=== PATIENT | female | born 1945 | race Caucasian/White ===

== ENCOUNTER 2019-10-01 08:01 | Day surgery (SDC) | payer MEDICARE, BC ==
[~2019-10-01 08:01] MED LIST: LACTATED RINGERS 1,000 ML IV SCH; LIDOCAINE 1% 20 ML VIAL (10MG/ML) FOR IV START INTRADERMA PRN
[2019-10-01 08:32] VITALS: RESP 16; TEMP 98
[2019-10-01] MEDS ORDERED: LIDOCAINE 1% 20 ML VIAL (10MG/ML) FOR IV START INTRADERMA ONE (08:35)
[2019-10-01] MEDS ORDERED: PROPOFOL 10 MG/ML 20 ML VIAL IV ONE (08:40)
--- NOTE | 2019-10-01 08:44 | P.GSHP ---
History of Present Illness H&P Date: 10/01/19 Chief Complaint: Rectal bleeding This is a 74-year-old female who's had issues with rectal bleeding. Patient rents today for colonoscopy. Past Medical History Past Medical History: COPD, Hyperlipidemia, Hypertension, Pneumonia Additional Past Medical History / Comment(s): constipation for about 3 months, traces of blood, hx. heart murmur, recent pneumonia-now resolved History of Any Multi-Drug Resistant Organisms: None Reported Past Surgical History: Hysterectomy, Orthopedic Surgery Additional Past Surgical History / Comment(s): pina foot surg. Past Anesthesia/Blood Transfusion Reactions: No Reported Reaction Smoking Status: Former smoker Past Alcohol Use History: None Reported Additional Past Alcohol Use History / Comment(s): quit smoking 2 months ago, smoked on & off since , did quit for long periods of time, <ppd Past Drug Use History: None Reported - Past Family History Brother(s) Family Medical History: Cancer Medications and Allergies Home Medications Medication Instructions Recorded Confirmed Type Ascorbic Acid [Vitamin C] 500 mg PO DAILY 09/27/19 10/01/19 History Aspirin 81 mg PO DAILY 09/27/19 10/01/19 History Atorvastatin [Lipitor] 10 mg PO HS 09/27/19 10/01/19 History amLODIPine BESYLATE/BENAZEPRIL 1 cap PO DAILY 09/27/19 10/01/19 History [Lotrel 5-10 MG] Allergies Allergy/AdvReac Type Severity Reaction Status Date / Time No Known Allergies Allergy Verified 10/01/19 08:20 Surgical - Exam Vital Signs Temp Pulse Resp BP Pulse Ox 98 F 102 H 16 116/56 99 10/01/19 08:31 10/01/19 08:31 10/01/19 08:31 10/01/19 08:31 10/01/19 08:31 - General well developed, well nourished, no distress - Eyes PERRL - ENT normal pinna - Neck no masses - Respiratory normal expansion - Cardiovascular Rhythm: regular - Abdomen Abdomen: soft, non tender Assessment and Plan Assessment: GI bleed. We'll perform colonoscopy.
--- NOTE | 2019-10-01 09:02 | P.OP ---
Date of Procedure: 10/01/19 Preoperative Diagnosis: GI bleed Postoperative Diagnosis: Sigmoid colon mass External hemorrhoids Procedure(s) Performed: Colonoscopy Anesthesia: MAC Surgeon: Ajit Young Pathology: other (Sigmoid colon) Condition: stable Disposition: PACU Description of Procedure: The patient's placed on the endoscopy table in the lateral position. She received IV sedation. Digital rectal exam was performed which revealed external hemorrhoids. The flexible colonoscope was then placed patient anus and passed t hroughout colon. Scope could not be advanced past the hepatic flexure. At this point scope was withdrawn. The transverse colon appeared normal. The descending colon appeared normal. In the sigmoid colon at approximately 25-30 cm nelda there was a large tumor which was partially obstructing the lumen of the colon. This was biopsied with the cold forcep and snare. The specimens of pathology. The distal colon was tattooed with the ink spot. The mass appeared to extend from the 25-30 cm nelda. At this point the rectal exam is normal. Scope was withdrawn for patient.
[2019-10-01 09:31] VITALS: PULSE 85
[2019-10-01 09:59] VITALS: BP 106/67
== END 2019-10-01 10:00 | disposition home or self-care (01) ==
LOC: ORWHC2ENDO 08:01
PROVIDERS: ATTEND Surgery
DX: K64.4 Residual hemorrhoidal skin tags (principal); K63.89 Other specified diseases of intestine; J44.9 Chronic obstructive pulmonary disease, unspecified; E78.5 Hyperlipidemia, unspecified; I10 Essential (primary) hypertension; Z87.01 Personal history of pneumonia (recurrent); Z87.19 Personal history of other diseases of the digestive system; Z90.710 Acquired absence of both cervix and uterus; Z98.890 Other specified postprocedural states; Z87.891 Personal history of nicotine dependence; Z79.82 Long term (current) use of aspirin; Z79.899 Other long term (current) drug therapy
CPT/HCPCS: 88305; 45380; 45385; J2704; 45381

== ENCOUNTER → 2019-10-01 | Outpatient (CLI) | payer MEDICARE, BC ==
[2019-10-01 16:30] LABS: HCT 29.3 % (34.0-46.0); HGB 9.6 gm/dL (11.4-16.0); MCH 30.5 pg (25.0-35.0); MCHC 32.8 g/dL (31.0-37.0); MCV 92.9 fL (80.0-100.0); Mean Platelet Volume 6.8; Platelet Count 403 k/uL (150-450); RBC 3.16 m/uL (3.80-5.40); RDW 13.9 % (11.5-15.5); WBC 7.5 k/uL (3.8-10.6)
[2019-10-01 16:39] LABS: Potassium 4.5 mmol/L (3.5-5.1)
== END | disposition home or self-care (01) ==
LOC: LABPAT 15:13
PROVIDERS: ATTEND Surgery
DX: Z01.812 Encounter for preprocedural laboratory examination (principal); C18.9 Malignant neoplasm of colon, unspecified
CPT/HCPCS: 36415; 80051; 85027; 86850; 86900; 86901; 93005

== ENCOUNTER → 2019-10-08 | Outpatient (CLI) | payer MEDICARE, BC ==
--- NOTE | 2019-10-08 14:41 | CT ---
EXAMINATION TYPE: CT abdomen pelvis w con DATE OF EXAM: 10/08/2019 COMPARISON: None HISTORY: 74 year-old female history of colon cancer, bowel blockage, preoperative assessment. TECHNIQUE: Contiguous axial scanning of the abdomen and pelvis following administration of 100 ml Iso magi 300 IV contrast. Delayed images through the kidneys and coronal/sagittal reconstructions perform ed. CT DLP: 777.1 mGycm Automated exposure control for dose reduction was used. FINDINGS: Heart normal size without pericardial effusion. Small hiatal hernia. Lung bases clear without pleural effusion. No focal liver lesion or biliary ductal dilatation. Portal venous system is patent. Gallbladder, adrenal glands, left kidney, spleen, and pancreas appear within normal limits. 6 mm nonobstructive right renal calculus. [id number] prostatic calcifications infrarenal abdominal aorta without aneurysm. No dilated small bowel, free fluid, or free air. There is scattered moderate stool. Sigmoid diverticulosis. Large heterogeneously enhancing mass measuring 6.8 cm wide by 6.2 cm craniocaudal by 10.3 cm AP situa michele along the rectosigmoid junction. Invasion of the right side of the cervix is difficult to exclude , refer to sagittal image 51. No mesenteric or retroperitoneal lymphadenopathy. Bladder distended. Uterus surgically absent. Mild to moderate pelvic free fluid probably reactive. Th ere is mild inflammatory fat stranding around the heterogeneous mass. No pelvic lymphadenopathy. Bones: Moderate degenerative changes of the hips. Degenerative disc disease T12-L1 and L5-S1. IMPRESSION: 1. LARGE, HETEROGENEOUSLY ENHANCING MASS MEASURING 10.3 CM AP BY 6.7 M WIDE BY 6.2 CM CRANIOCAUDAL CE NTERED AT THE RECTOSIGMOID JUNCTION. SUSPECT EARLY INVASION OF THE RIGHT SIDE OF THE CERVIX (SAGITTAL IMAGE 51). 2. MODERATE STOOL BURDEN. BACKGROUND SIGMOID DIVERTICULOSIS. 3. NO METASTATIC DISEASE IS OTHERWISE EVIDENT. 4. 6 MM NONOBSTRUCTIVE RIGHT RENAL CALCULUS AND SMALL HIATAL HERNIA.
== END | disposition home or self-care (01) ==
LOC: RADCTMAIN 11:07
PROVIDERS: ATTEND Surgery
DX: K57.30 Diverticulosis of large intestine without perforation or abscess without bleeding (principal); K44.9 Diaphragmatic hernia without obstruction or gangrene; N20.0 Calculus of kidney; K63.89 Other specified diseases of intestine; C18.9 Malignant neoplasm of colon, unspecified
CPT/HCPCS: 36415; 74177; 82565; 84520

== ENCOUNTER 2019-10-09 10:41 | Inpatient (IN) | payer MEDICARE, BC ==
[~2019-10-09 10:41] MED LIST changes: +DEXAMETHASONE SOD PHOSPHATE 10 MG/ML 1 ML VIAL IV ONE; +HEPARIN SODIUM,PORCINE 5,000 UNIT/ML 1 ML VIAL SQ ONE; +HYDROmorphone 0.5 MG/0.5 ML SYRINGE IVP PRN; -LACTATED RINGERS 1,000 ML IV SCH; +MIDAZOLAM 2 MG/2 ML VIAL IV PRN; +ONDANSETRON 4 MG/2 ML VIAL IVP ONE; +SCOPOLAMINE 1.5MG/72HR PATCH TRANSDERM ONE; +metroNIDAZOLE-NS PMX 500 MG in SALINE 1 100ML.BAG IVPB ONE
[2019-10-09] MEDS: LACTATED RINGERS 1,000 ML IV SCH ×2 (12:24→23:13)
--- NOTE | 2019-10-09 13:04 | P.GSHP ---
History of Present Illness H&P Date: 10/09/19 Chief Complaint: Sigmoid colon mass This is a 74-year-old female who underwent recent colonoscopy. Patient's found have a sigmoid colon mass with a villous tumor with high-grade dysplasia. Patient presents today for low anterior section. Patient is aware the risk of possible colostomy. Past Medical History Past Medical History: COPD, Hyperlipidemia, Hypertension, Pneumonia Additional Past Medical History / Comment(s): constipation for about 3 months, traces of blood, hx. heart murmur, recent pneumonia-now resolved,"BLOCKAGE IN COLON AREA" History of Any Multi-Drug Resistant Organisms: None Reported Past Surgical History: Hysterectomy, Orthopedic Surgery Additional Past Surgical History / Comment(s): pina foot surg. Past Anesthesia/Blood Transfusion Reactions: No Reported Reaction Smoking Status: Former smoker - Past Family History Brother(s) Family Medical History: Cancer Medications and Allergies Home Medications Medication Instructions Recorded Confirmed Type Ascorbic Acid [Vitamin C] 500 mg PO DAILY 09/27/19 10/09/19 History Aspirin 81 mg PO DAILY 09/27/19 10/09/19 History Atorvastatin [Lipitor] 10 mg PO HS 09/27/19 10/09/19 History amLODIPine BESYLATE/BENAZEPRIL 1 cap PO DAILY 09/27/19 10/09/19 History [Lotrel 5-10 MG] Allergies Allergy/AdvReac Type Severity Reaction Status Date / Time No Known Allergies Allergy Verified 10/09/19 11:52 Surgical - Exam Vital Signs Temp Pulse Resp BP Pulse Ox 98.0 F 91 18 107/55 97 10/09/19 11:54 10/09/19 11:54 10/09/19 11:54 10/09/19 11:54 10/09/19 11:54 - General well developed, well nourished, no distress - Eyes PERRL - ENT normal pinna - Neck no masses - Respiratory normal expansion - Cardiovascular Rhythm: regular - Abdomen Abdomen: soft, non tender Results - Labs 10/09/19 12:22 Diabetes panel 10/09/19 Range/Units 12:22 Potassium 3.8 (3.5-5.1) mmol/L Pituitary panel 10/09/19 Range/Units 12:22 Potassium 3.8 (3.5-5.1) mmol/L Adrenal panel 10/09/19 Range/Units 12:22 Potassium 3.8 (3.5-5.1) mmol/L Assessment and Plan Assessment: Sigmoid colon mass. Patient undergo low anterior resection.
[2019-10-09] MEDS ORDERED: MIDAZOLAM 2 MG/2 ML VIAL IVP ONE (13:14)
[2019-10-09] MEDS ORDERED: ALVIMOPAN 12 MG CAPSULE PO ONE (13:30)
[2019-10-09] MEDS ORDERED: NALOXONE 0.4 MG/ML 1 ML VIAL IV PRN (13:35)
[2019-10-09] MEDS ORDERED: MIDAZOLAM 2 MG/2 ML VIAL ONE (13:46)
[2019-10-09] MEDS ORDERED: LIDOCAINE 1% INJ 10MG/ML (20 ML MDV) ONE (13:46)
[2019-10-09] MEDS ORDERED: fentaNYL (PF) 50 MCG/ML 2 ML AMP ONE (13:46)
[2019-10-09] MEDS ORDERED: NEOSTIGMINE 1 MG/ML 10 ML VIAL ONE (13:46)
[2019-10-09] MEDS ORDERED: GLYCOPYRROLATE 0.2 MG/ML 2 ML VIAL ONE (13:46)
[2019-10-09] MEDS ORDERED: PROPOFOL 10 MG/ML 20 ML VIAL IV ONE (13:46)
[2019-10-09] MEDS ORDERED: ROCURONIUM BROMIDE 10 MG/ML 10 ML VIAL IV ONE (13:46)
[2019-10-09] MEDS ORDERED: LACTATED RINGERS 1,000 ML IV ONE (14:15)
[2019-10-09] MEDS ORDERED: METOCLOPRAMIDE 5 MG/ML 2 ML VIAL IVP PRN (15:36)
[2019-10-09] MEDS ORDERED: HYDROmorphone 1 MG/ML 1 ML SYRINGE IVP PRN (15:36)
[2019-10-09] MEDS ORDERED: ONDANSETRON 4 MG/2 ML VIAL IVP PRN (15:36)
[2019-10-09] MEDS ORDERED: BENZOCAINE/MENTHOL LOZENG 1 EACH LOZENGE MUCOUS MEM PRN (15:36)
--- NOTE | 2019-10-09 15:47 | P.OP ---
Date of Procedure: 10/09/19 Preoperative Diagnosis: Sigmoid colon mass Postoperative Diagnosis: Sigmoid colon mass with extension to right pelvic sidewall Procedure(s) Performed: Low anterior resection Anesthesia: ADELITAA Surgeon: Ajit Young Estimated Blood Loss (ml): 30 Pathology: other (Sigmoid colon) Condition: stable Disposition: PACU Description of Procedure: DESCRIPTION OF PROCEDURE: The patient was placed on the operating table in the supine position. Patient received a general anesthesia. Patient was then placed in the dorsal lithotomy position. The patient's abdomen was prepped and draped in the usual sterile fashion. Through a low midline incision, the abdomen was entered. The Kris retractor was placed in the wound. The stomach appeared normal. The small bowel appeared normal. The liver appeared normal. The right colon and transverse colon appeared normal. The descending colon appeared normal. The sigmoid colon was adherent to the right SIDEWALL. There was a large mass extending from the distal sigmoid colon. At this point the left colon was transected after the white line of Toldt was divided. The anvil for the 25 mm EEA stapler was placed in the colon prior to dividing the colon with a GI stapler. The anvil was brought through the staple line. Using the VEE stapler the left colon was transected and using the Enseal device the mesentery of the sigmoid colon was divided. The mesentery the rectum and then divided. And then the rectum was transected with the contour stapler. The mass and extended onto the right pelvic sidewall using blunt finger dissection the mass was dissected off the pelvic sidewall. Massive very friable. It appeared to be an obvious colon cancer. The election assistant placed the EEA stapler patient's anus. The stapler was position in the rectum. The spike was then driven through the rectal staple line. The anvil was connected to the stapler. And then maine then closed and fired. 2 intact tissue rings were withdrawn for stapler. Next using hydro-superintendent ammunition storage the bowel just proximal to the anastomosis occluded. The sigmoidoscope was then used to insufflate air into the rectum. As no evidence of any extravasation of air. The abdomen was irrigated resolving seen. The liver appeared normal. The fascia was closed with clean instruments. 2 sutures used to close the fascia. O-PDS was used to close the fascia. Scope was maine. Patient top she will she was sent to recovery room in stable condition
[2019-10-09] MEDS: HEPARIN SODIUM,PORCINE 5,000 UNIT/ML 1 ML VIAL SQ SCH ×3 (15:59→23:14)
[2019-10-09 16:51] LABS: Basophils % (A) 0 %; Eosinophils % (A) 0 %; HCT 28.2 % (34.0-46.0); HGB 9.2 gm/dL (11.4-16.0); Lymphocytes # (A) 0.6 k/uL (1.0-4.8); Lymphocytes % (A) 9 %; MCH 30.1 pg (25.0-35.0); MCHC 32.5 g/dL (31.0-37.0); MCV 92.4 fL (80.0-100.0); Mean Platelet Volume 6.8; Monocytes # (A) 0.1 k/uL (0-1.0); Monocytes % (A) 1 %; Neutrophils # (A) 6.7 k/uL (1.3-7.7); Neutrophils % (A) 90 %; Platelet Count 332 k/uL (150-450); RBC 3.05 m/uL (3.80-5.40); RDW 13.9 % (11.5-15.5); WBC 7.5 k/uL (3.8-10.6)
[2019-10-09 17:10] LABS: Calcium 8.5 mg/dL (8.4-10.2); Potassium 3.8 mmol/L (3.5-5.1)
[2019-10-09] MEDS: ALVIMOPAN 12 MG CAPSULE PO SCH (20:20)
[2019-10-09] MEDS: FAMOTIDINE 20 MG/2 ML VIAL IV SCH (20:20)
[2019-10-09] MEDS: D5-0.45% NACL WITH KCL 20MEQ/L 1,000 ML IV SCH (21:46)
--- NOTE | 2019-10-10 05:53 | P.PN ---
Progress Note - Text Progress Note Date: 10/10/19 74 yo female s/p low anterior resection, POD#1. No major complaints overnight. Adequate pain control (VAS=3/10) at a rate of 6cc/hr. No motor deficit, headache, nausea or vomiting. Epidural catheter insertion site clean and intact. Will continue epidural at same rate.
[2019-10-10] MEDS: ROPIVACAINE 250 MG, fentaNYL (PF) 625 MCG in SODIUM CHLORIDE 0.9% 188 ML EPIDURAL PRN (07:29)
--- NOTE | 2019-10-10 07:53 | P.CONS ---
History of Present Illness - Reason for Consult Consult date: 10/10/19 Requesting physician: Ajit Young - Chief Complaint rectal bleeding - History of Present Illness This is a consultation note on a 74-year-old white female essentially admitted for rectal bleeding. Transverse colonic mass was found on colonoscopy and she is essentially admitted for elective resection. She is now postop day #1. Some low blood pressure is noted. No sniffing chest pain or shortness of breath stated. Pain is fairly well controlled. Review of Systems Constitutional: Denies chills, Denies fever Eyes: denies blurred vision, denies pain Ears, nose, mouth and throat: Denies headache, Denies sore throat Cardiovascular: Denies chest pain, Denies shortness of breath Respiratory: Denies cough Gastrointestinal: Denies nausea, Denies vomiting Genitourinary: Denies dysuria, Denies hematuria Past Medical History Past Medical History: COPD, Hyperlipidemia, Hypertension, Pneumonia Additional Past Medical History / Comment(s): constipation for about 3 months, traces of blood, hx. heart murmur, recent pneumonia-now resolved,"BLOCKAGE IN COLON AREA" History of Any Multi-Drug Resistant Organisms: None Reported Past Surgical History: Hysterectomy, Orthopedic Surgery Additional Past Surgical History / Comment(s): pina foot surg. Past Anesthesia/Blood Transfusion Reactions: No Reported Reaction Smoking Status: Former smoker Past Alcohol Use History: None Reported Additional Past Alcohol Use History / Comment(s): quit smoking 2 months ago, smoked on & off since , did quit for long periods of time, <ppd Past Drug Use History: None Reported - Past Family History Brother(s) Family Medical History: Cancer Medications and Allergies Home Medications Medication Instructions Recorded Confirmed Type Ascorbic Acid [Vitamin C] 500 mg PO DAILY 09/27/19 10/09/19 History Aspirin 81 mg PO DAILY 09/27/19 10/09/19 History Atorvastatin [Lipitor] 10 mg PO HS 09/27/19 10/09/19 History amLODIPine BESYLATE/BENAZEPRIL 1 cap PO DAILY 09/27/19 10/09/19 History [Lotrel 5-10 MG] Allergies Allergy/AdvReac Type Severity Reaction Status Date / Time No Known Allergies Allergy Verified 10/09/19 11:52 Physical Exam Vitals: Vital Signs Temp Pulse Pulse Resp BP Pulse Ox 12/05/19 07:31 79 95/61 10/10/19 07:25 84 95/58 10/10/19 07:00 98.4 F 74 16 98/45 98 10/10/19 01:03 98.1 F 85 18 94/60 98 10/09/19 18:58 79 18 101/66 100 10/09/19 18:44 94 18 101/63 100 10/09/19 18:28 81 18 100/60 100 10/09/19 18:13 82 18 100/65 100 10/09/19 17:58 83 18 97/66 100 10/09/19 17:43 83 18 99/66 100 10/09/19 17:28 80 18 99/65 100 10/09/19 17:15 98 10/09/19 17:13 90 18 94/60 100 10/09/19 16:58 83 18 99/65 100 10/09/19 16:05 77 16 98/56 97 10/09/19 15:50 97 18 107/59 97 10/09/19 15:35 75 16 113/59 100 10/09/19 15:24 98.7 F 77 16 101/50 100 10/09/19 13:30 98 16 98/57 100 10/09/19 11:54 98.0 F 91 18 107/55 97 Intake and Output 10/09/19 10/10/19 10/10/19 22:59 06:59 14:59 Intake Total 375 Output Total 780 500 Balance -405 -500 Intake: IV 0 Intake, IV Titration 375 Amount D5-0.45% NaCl with KCl 375 20Meq/l 1,000 ml @ 125 mls/hr IV .Q8H [facility] Rx#: [id number] Output: Urine 730 500 Estimated Blood Loss 50 Other: Voiding Method Indwelling Catheter Indwelling Catheter Weight 73.1 kg Results CBC & Chem 7: 10/09/19 16:35 10/09/19 16:35 Labs: Abnormal Lab Results - Last 24 Hours (Table) 10/09/19 10/09/19 Range/Units 16:35 16:35 RBC 3.05 L (3.80-5.40) m/uL Hgb 9.2 L (11.4-16.0) gm/dL Hct 28.2 L (34.0-46.0) % Lymphocytes # 0.6 L (1.0-4.8) k/uL Sodium 136 L (137-145) mmol/L Creatinine 1.06 H (0.52-1.04) mg/dL Glucose 150 H (74-99) mg/dL Assessment and Plan (1) Rectal bleeding Current Visit: Yes Status: Acute Code(s): K62.5 - HEMORRHAGE OF ANUS AND RECTUM SNOMED Code(s): 69778982 (2) Hypertension Current Visit: Yes Status: Acute Code(s): I10 - ESSENTIAL (PRIMARY) HYPERTENSION SNOMED Code(s): 27377212 (3) Hyperlipidemia Current Visit: Yes Status: Acute Code(s): E78.5 - HYPERLIPIDEMIA, UNSPECIFIED SNOMED Code(s): 82824757 (4) Colonic mass Current Visit: Yes Status: Acute Code(s): K63.89 - OTHER SPECIFIED DISEASES OF INTESTINE SNOMED Code(s): 940459068 Plan: Standard postop protocol. DVT and GI prophylaxis as necessary. Reconcile home medications. Advance diet as per surgery. We'll continue to follow. Appreciate the medical consultation. Time with Patient: Greater than 30
[2019-10-10 09:00] LABS: Basophils % (A) 0 %; Eosinophils % (A) 0 %; HGB 8.4 gm/dL (11.4-16.0); Hypochromasia Slight; Lymphocytes # (A) 0.7 k/uL (1.0-4.8); Lymphocytes % (A) 8 %; MCH 30.5 pg (25.0-35.0); MCHC 32.4 g/dL (31.0-37.0); Monocytes # (A) 0.3 k/uL (0-1.0); Monocytes % (A) 4 %; Neutrophils # (A) 8.3 k/uL (1.3-7.7); Neutrophils % (A) 88 %; Platelet Count 306 k/uL (150-450); RBC 2.76 m/uL (3.80-5.40); RDW 13.8 % (11.5-15.5); WBC 9.4 k/uL (3.8-10.6)
[2019-10-10] MEDS: HEPARIN SODIUM,PORCINE 5,000 UNIT/ML 1 ML VIAL SQ SCH ×3 (09:34→23:18)
[2019-10-10] MEDS: ASPIRIN 81 MG PO SCH (09:35)
[2019-10-10] MEDS: FAMOTIDINE 20 MG/2 ML VIAL IV SCH (09:35)
[2019-10-10] MEDS: ASCORBIC ACID 500 MG TAB PO SCH (09:35)
[2019-10-10] MEDS: ALVIMOPAN 12 MG CAPSULE PO SCH ×2 (09:35→20:00)
[2019-10-10] MEDS: LISINOPRIL 10 MG TAB PO SCH (09:46)
[2019-10-10] MEDS: amLODIPine 5 MG TAB PO SCH (09:46)
[2019-10-10] MEDS: D5-0.45% NACL WITH KCL 20MEQ/L 1,000 ML IV SCH ×3 (13:41→23:17)
--- NOTE | 2019-10-10 16:23 | P.PN ---
Subjective Progress Note Date: 10/10/19 CHIEF COMPLAINT: Sigmoid colon mass HISTORY OF PRESENT ILLNESS: 74-year-old female who is status post low anterior resection secondary to sigmoid colon mass with extension to right pelvic sidewall. Postop day #1. Patient examined at the bedside. Patient reports her pain is tolerable. Epidural is currently infusing. Patient denies passing flatus. She is tolerating clear liquid diet. Denies nausea or vomiting. PHYSICAL EXAM: VITAL SIGNS: Reviewed. GENERAL: Well-developed in no acute distress. HEENT: No sclera icterus. Extraocular movements grossly intact. Moist buccal mucosa. Head is atraumatic, normocephalic. ABDOMEN: Soft. Nondistended. Appropriate surgical tenderness. Dressing clean dry and intact. NEUROLOGIC: Alert and oriented. Cranial nerves II through XII grossly intact. ASSESSMENT: 1. Sigmoid colon mass with extension to right pelvic sidewall, status post low anterior resection PLAN: -Continue epidural catheter. Discontinue postoperative day #3 -Continue Bonilla catheter -Continue current liquid diet. Await bowel function -Increase activity as tolerated -Incentive spirometer 10 times an hour Nurse practitioner note has been reviewed by physician. Signing provider agrees with the documented findings, assessment, and plan of care. Objective - Vital Signs Vital signs: Vital Signs Temp 98.2 F 10/10/19 14:19 Pulse 79 10/10/19 14:19 Resp 16 10/10/19 14:19 BP 96/63 10/10/19 14:19 Pulse Ox 100 10/10/19 14:19 Intake & Output 10/09/19 10/10/19 10/10/19 18:59 06:59 18:59 Intake Total 0247 887 0531 Output Total 425 922 5531 Balance 870 -125 -77 Weight 73.1 kg Intake: IV 1650 1000 D5-0.45% NaCl with KCl 1000 20Meq/l 1,000 ml @ 125 mls/hr IV .Q8H [facility] Rx#: [id number] Intake, IV Titration 375 Amount D5-0.45% NaCl with KCl 375 20Meq/l 1,000 ml @ 125 mls/hr IV .Q8H [facility] Rx#: [id number] Output: Urine 608 330 3116 Uretheral (Bonilla) 550 Estimated Blood Loss 50 Other: Voiding Method Indwelling Catheter Indwelling Catheter - Labs CBC & Chem 7: 10/10/19 08:42 10/09/19 16:35 Labs: Abnormal Lab Results - Last 24 Hours (Table) 10/09/19 10/09/19 10/10/19 Range/Units 16:35 16:35 08:42 RBC 3.05 L 2.76 L (3.80-5.40) m/uL Hgb 9.2 L 8.4 L (11.4-16.0) gm/dL Hct 28.2 L 26.0 L (34.0-46.0) % Neutrophils # 8.3 H (1.3-7.7) k/uL Lymphocytes # 0.6 L 0.7 L (1.0-4.8) k/uL Sodium 136 L (137-145) mmol/L Creatinine 1.06 H (0.52-1.04) mg/dL Glucose 150 H (74-99) mg/dL
[2019-10-10] MEDS: LACTATED RINGERS 1,000 ML IV SCH ×2 (17:43→20:03)
[2019-10-10] MEDS: HYDROmorphone 0.5 MG/0.5 ML SYRINGE IVP PRN ×2 (18:11→23:18)
[2019-10-10] MEDS: ATORVASTATIN 10 MG TAB PO SCH (20:00)
[2019-10-11] MEDS: LACTATED RINGERS 1,000 ML IV SCH (05:53)
[2019-10-11 07:35] LABS: Basophils % (A) 0 %; Eosinophils % (A) 0 %; HCT 26.8 % (34.0-46.0); HGB 8.8 gm/dL (11.4-16.0); Hypochromasia Slight; Lymphocytes # (A) 1.5 k/uL (1.0-4.8); Lymphocytes % (A) 20 %; MCH 30.6 pg (25.0-35.0); MCHC 32.7 g/dL (31.0-37.0); MCV 93.6 fL (80.0-100.0); Mean Platelet Volume 8.1; Monocytes # (A) 0.4 k/uL (0-1.0); Monocytes % (A) 5 %; Neutrophils # (A) 5.4 k/uL (1.3-7.7); Neutrophils % (A) 74 %; Platelet Count 290 k/uL (150-450); RBC 2.87 m/uL (3.80-5.40); RDW 13.9 % (11.5-15.5); WBC 7.3 k/uL (3.8-10.6)
[2019-10-11 07:46] LABS: Calcium 8.3 mg/dL (8.4-10.2); Potassium 4.6 mmol/L (3.5-5.1)
[2019-10-11] MEDS: amLODIPine 5 MG TAB PO SCH (07:50)
[2019-10-11] MEDS: LISINOPRIL 10 MG TAB PO SCH (07:50)
[2019-10-11] MEDS: ALVIMOPAN 12 MG CAPSULE PO SCH ×2 (08:02→22:26)
[2019-10-11] MEDS: HYDROmorphone 0.5 MG/0.5 ML SYRINGE IVP PRN ×2 (08:02→15:01)
[2019-10-11] MEDS: ASCORBIC ACID 500 MG TAB PO SCH (08:02)
[2019-10-11] MEDS: HEPARIN SODIUM,PORCINE 5,000 UNIT/ML 1 ML VIAL SQ SCH ×2 (08:02→16:07)
[2019-10-11] MEDS: ASPIRIN 81 MG PO SCH (08:02)
--- NOTE | 2019-10-11 08:05 | P.PN ---
Subjective Progress Note Date: 10/11/19 Principal diagnosis: Status post resection. This is a continue progress on a 74-year-old white female who is postop day #3 for transverse colon mass and resection. The patient states significant pain. We will hold her meds today. No sniffing chest pain per se. Did explain to her that she could need adjuvant treatment other than resection, she is somewhat worried about that because of her family history of her brother having stage IV cancer and having adjuvant treatment. Objective - Vital Signs Vital signs: Vital Signs Temp 97.7 F 10/11/19 07:00 Pulse 78 10/11/19 07:00 Resp 16 10/11/19 07:00 BP 114/71 10/11/19 07:00 Pulse Ox 98 10/11/19 07:00 Intake & Output 10/10/19 10/11/19 10/11/19 18:59 06:59 18:59 Intake Total 1000 1437.5 Output Total 1702 1900 Balance -702 -462.5 Intake: IV 1000 D5-0.45% NaCl with KCl 1000 20Meq/l 1,000 ml @ 125 mls/hr IV .Q8H [facility] Rx#: [id number] Intake, IV Titration 1437.5 Amount D5-0.45% NaCl with KCl 437.5 20Meq/l 1,000 ml @ 125 mls/hr IV .Q8H [facility] Rx#: [id number] Lactated Ringers 1,000 ml 1000 @ 999 mls/hr IV .Q1H1M [facility] Rx#:[id number] Output: Urine 1702 1900 Uretheral (Bonilla) 1175 Other: Voiding Method Indwelling Catheter Indwelling Catheter - Constitutional General appearance: Present: average body habitus - EENT Eyes: Absent: abnormal pupil - Neck Neck: Absent: lymphadenopathy - Respiratory Respiratory: bilateral: CTA - Cardiovascular Rhythm: regular Heart sounds: normal: S1, S2 Abnormal Heart Sounds: Absent: S3 Gallop - Gastrointestinal General gastrointestinal: Present: soft. Absent: tenderness - Integumentary Integumentary: Absent: cellulitis, rash - Psychiatric Psychiatric: Present: A&O x's 3. Absent: appropriate affect - Labs CBC & Chem 7: 10/11/19 06:32 10/11/19 06:32 Labs: Abnormal Lab Results - Last 24 Hours (Table) 10/10/19 10/11/19 10/11/19 Range/Units 08:42 06:32 06:32 RBC 2.76 L 2.87 L (3.80-5.40) m/uL Hgb 8.4 L 8.8 L (11.4-16.0) gm/dL Hct 26.0 L 26.8 L (34.0-46.0) % Neutrophils # 8.3 H (1.3-7.7) k/uL Lymphocytes # 0.7 L (1.0-4.8) k/uL Glucose 114 H (74-99) mg/dL Calcium 8.3 L (8.4-10.2) mg/dL Assessment and Plan (1) Rectal bleeding Current Visit: Yes Status: Acute Code(s): K62.5 - HEMORRHAGE OF ANUS AND RECTUM SNOMED Code(s): 18353846 (2) Hypertension Current Visit: Yes Status: Acute Code(s): I10 - ESSENTIAL (PRIMARY) HYPERTENSION SNOMED Code(s): 69765595 (3) Hyperlipidemia Current Visit: Yes Status: Acute Code(s): E78.5 - HYPERLIPIDEMIA, UNSPECIFIED SNOMED Code(s): 16351189 (4) Colonic mass Current Visit: Yes Status: Acute Code(s): K63.89 - OTHER SPECIFIED DISEASES OF INTESTINE SNOMED Code(s): 216599958 Plan: Standard postop protocol. DVT and GI prophylaxis as necessary. Reconcile home medications. Advance diet as per surgery. Watch blood pressure closely. Time with Patient: Greater than 30
[2019-10-11] MEDS ORDERED: KETOROLAC 30 MG/ML 1 ML VIAL IVP PRN (08:20)
[2019-10-11] MEDS ORDERED: FAMOTIDINE 20 MG/2 ML VIAL IV SCH (09:00)
--- NOTE | 2019-10-11 10:16 | P.PN ---
Subjective Progress Note Date: 10/11/19 CHIEF COMPLAINT: Sigmoid colon mass HISTORY OF PRESENT ILLNESS: 74-year-old female who is status post low anterior resection secondary to sigmoid colon mass with extension to right pelvic sidewall. Postop day #2. Patient examined at the bedside. Patient reports abdominal discomfort this morning. Epidural is currently infusing at 5cc. Patient states she is passing small amounts of flatus. She is tolerating clear liquid diet. Denies nausea or vomiting. PHYSICAL EXAM: VITAL SIGNS: Reviewed. GENERAL: Well-developed in no acute distress. HEENT: No sclera icterus. Extraocular movements grossly intact. Moist buccal mucosa. Head is atraumatic, normocephalic. ABDOMEN: Soft. Nondistended. Appropriate surgical tenderness. Dressing clean dry and intact. NEUROLOGIC: Alert and oriented. Cranial nerves II through XII grossly intact. ASSESSMENT: 1. Sigmoid colon mass with extension to right pelvic sidewall, status post low anterior resection PLAN: -Continue epidural catheter. Discontinue postoperative day #3. Continue IV dilaudid for breakthrough pain. Will add Toradol and IV Tylenol in attempts to decrease narcotic use -Continue Bonilla catheter. DC tomorrow -Continue current liquid diet. Await further flatus before advancing diet -Increase activity as tolerated -Incentive spirometer 10 times an hour Nurse practitioner note has been reviewed by physician. Signing provider agrees with the documented findings, assessment, and plan of care. Objective - Vital Signs Vital signs: Vital Signs Temp 97.7 F 10/11/19 07:00 Pulse 78 10/11/19 07:00 Resp 16 10/11/19 07:00 BP 114/71 10/11/19 07:00 Pulse Ox 98 10/11/19 07:00 Intake & Output 10/10/19 10/11/19 10/11/19 18:59 06:59 18:59 Intake Total 1000 1437.5 Output Total 1702 1900 Balance -702 -462.5 Intake: IV 1000 D5-0.45% NaCl with KCl 1000 20Meq/l 1,000 ml @ 125 mls/hr IV .Q8H [facility] Rx#: [id number] Intake, IV Titration 1437.5 Amount D5-0.45% NaCl with KCl 437.5 20Meq/l 1,000 ml @ 125 mls/hr IV .Q8H [facility] Rx#: [id number] Lactated Ringers 1,000 ml 1000 @ 999 mls/hr IV .Q1H1M [facility] Rx#:[id number] Output: Urine 1702 1900 Uretheral (Bonilla) 1175 Other: Voiding Method Indwelling Catheter Indwelling Catheter - Labs CBC & Chem 7: 10/11/19 06:32 10/11/19 06:32 Labs: Abnormal Lab Results - Last 24 Hours (Table) 10/11/19 10/11/19 Range/Units 06:32 06:32 RBC 2.87 L (3.80-5.40) m/uL Hgb 8.8 L (11.4-16.0) gm/dL Hct 26.8 L (34.0-46.0) % Glucose 114 H (74-99) mg/dL Calcium 8.3 L (8.4-10.2) mg/dL
[2019-10-11] MEDS: D5-0.45% NACL WITH KCL 20MEQ/L 1,000 ML IV SCH ×3 (10:18→16:07)
[2019-10-11] MEDS: ACETAMINOPHEN IV (For NPO) 1,000 MG in EMPTY BAG 1 BAG IVPB SCH ×2 (10:18→16:06)
--- NOTE | 2019-10-11 14:32 | P.PN ---
Progress Note - Text 10/11 654am 74-year-old female status post low anterior resection by Dr. Howard. Patient has an epidural catheter for postop pain control the solution running at 5 mL an hour no motor sensory deficit noted, she has a VAS of 5. Plan to continue epidural catheter infusion
[2019-10-11] MEDS: ROPIVACAINE 250 MG, fentaNYL (PF) 625 MCG in SODIUM CHLORIDE 0.9% 188 ML EPIDURAL PRN (15:14)
[2019-10-11] MEDS: ATORVASTATIN 10 MG TAB PO SCH (22:26)
[2019-10-11] MEDS: FAMOTIDINE 20 MG/2 ML VIAL IV SCH (22:26)
[2019-10-12] MEDS: HEPARIN SODIUM,PORCINE 5,000 UNIT/ML 1 ML VIAL SQ SCH ×3 (00:33→15:30)
[2019-10-12] MEDS: D5-0.45% NACL WITH KCL 20MEQ/L 1,000 ML IV SCH ×2 (00:41→08:41)
--- NOTE | 2019-10-12 06:36 | P.PN ---
Progress Note - Text Progress Note Date: 10/12/19 Patient is without complaints. Has been OOB to chair most of day. Minimal discomfort. Denies weakness of lower extremity paresthesia. Denies headache. Epidural @ 5 ml/hr. Taking clears. VSS Back - epidural site c/d A/P POD#3 s/p LAR - epidural to come out today - given pt on ASA, ketorolac, and heparin sq, would hold heparin sq prior to epidural d/c
[2019-10-12 07:56] LABS: Basophils % (A) 0 %; Eosinophils % (A) 0 %; HCT 34.7 % (34.0-46.0); HGB 11.1 gm/dL (11.4-16.0); Hypochromasia Slight; Lymphocytes # (A) 0.7 k/uL (1.0-4.8); Lymphocytes % (A) 8 %; MCH 30.3 pg (25.0-35.0); MCHC 31.9 g/dL (31.0-37.0); MCV 94.7 fL (80.0-100.0); Mean Platelet Volume 7.1; Monocytes # (A) 0.4 k/uL (0-1.0); Monocytes % (A) 4 %; Neutrophils # (A) 7.4 k/uL (1.3-7.7); Neutrophils % (A) 86 %; Platelet Count 385 k/uL (150-450); RBC 3.67 m/uL (3.80-5.40); RDW 13.9 % (11.5-15.5); WBC 8.6 k/uL (3.8-10.6)
[2019-10-12 08:07] LABS: Albumin 2.8 g/dL (3.5-5.0); Calcium 8.7 mg/dL (8.4-10.2); Potassium 5.8 mmol/L (3.5-5.1); Total Bilirubin 0.3 mg/dL (0.2-1.3); Total Protein 5.5 g/dL (6.3-8.2)
[2019-10-12] MEDS: LACTATED RINGERS 1,000 ML IV SCH (08:40)
[2019-10-12] MEDS: LISINOPRIL 10 MG TAB PO SCH (08:42)
[2019-10-12] MEDS: amLODIPine 5 MG TAB PO SCH (08:42)
[2019-10-12] MEDS: FAMOTIDINE 20 MG/2 ML VIAL IV SCH ×2 (08:49→20:18)
[2019-10-12] MEDS: ASPIRIN 81 MG PO SCH (08:49)
[2019-10-12] MEDS: ASCORBIC ACID 500 MG TAB PO SCH (08:49)
[2019-10-12] MEDS: DEXTROSE 5%-0.45% NACL 1,000 ML IV SCH ×2 (10:39→20:16)
--- NOTE | 2019-10-12 14:11 | P.PN ---
Subjective Progress Note Date: 10/12/19 CHIEF COMPLAINT: Sigmoid colon mass HISTORY OF PRESENT ILLNESS: The patient is a 74-year-old status post low anterior resection for sigmoid colon mass. She is passing flatus and having diarrhea. She did have a small bout of abdominal pain last night that has improved. She has not ambulated ROS: No reports of nausea and vomiting. No fevers or chills. No new chest pain. No productive sputum PHYSICAL EXAM: VITAL SIGNS: Reviewed CONSTITUTIONAL: Well developed and in no acute distress. EYES: Conjuctivae without sclera icterus. Extraocular movements grossly intact. HEAD, EARS, NOSE, THROAT: Moist buccal mucosa. Head is atraumatic, normocephalic. Hears conversational speech. No nasal drainage. RESPIRATORY: Non-labored respirations and equal bilateral excursions. CARDIOVASCULAR: Palpable 2+ radial pulses. ABDOMEN: Soft. No peritonitis. Soft. Dressing dry and intact. MUSCULOSKELETAL: No gross deformity of the lower extremities noted. No clubbing. No cyanosis. SKIN: Good skin turgor. Well perfused. NEUROLOGIC: Cranial nerves I through XII grossly intact. No focal or l ateralizing signs. PSYCH: Appropriate affect. Alert and oriented to person, place and time. CLINICAL LABS: White blood cell count normal PATHOLOGY: Over 9 cm centimeter adenocarcinoma sigmoid colon mass. 0 out of 15 lymph nodes involvement ASSESSMENT: 1. Sigmoid colon cancer PLAN: 1. March advance diet. Objective - Vital Signs Vital signs: Vital Signs Temp 97.9 F 10/12/19 07:24 Pulse 95 10/12/19 07:24 Resp 16 10/12/19 07:24 BP 109/70 10/12/19 07:24 Pulse Ox 99 10/12/19 07:24 Intake & Output 10/11/19 10/12/19 10/12/19 18:59 06:59 18:59 Intake Total 1158.75 Output Total 3275 300 500 Balance -2116.25 -300 -500 Intake: IV 1000 D5-0.45% NaCl with KCl 1000 20Meq/l 1,000 ml @ 125 mls/hr IV .Q8H [facility] Rx#: [id number] Intake, IV Titration 158.75 Amount Ropivacaine 250 mg 158.75 fentaNYL (PF) 625 mcg In Sodium Chloride 0.9% 188 ml @ Per Protocol EPIDURAL .Q0M PRN Rx#: [id number] Output: Urine 3275 500 Uretheral ([place]) 1375 Stool 300 Other: Voiding Method Indwelling Catheter Indwelling Catheter Indwelling Catheter # Voids 1 # Bowel Movements 2 1 - Labs CBC & Chem 7: 10/12/19 06:48 10/12/19 06:48 Labs: Abnormal Lab Results - Last 24 Hours (Table) 10/12/19 10/12/19 Range/Units 06:48 06:48 RBC 3.67 L (3.80-5.40) m/uL Hgb 11.1 L (11.4-16.0) gm/dL Lymphocytes # 0.7 L (1.0-4.8) k/uL Sodium 136 L (137-145) mmol/L Potassium 5.8 H (3.5-5.1) mmol/L Glucose 145 H (74-99) mg/dL Total Protein 5.5 L (6.3-8.2) g/dL Albumin 2.8 L (3.5-5.0) g/dL Assessment and Plan (1) Cancer of sigmoid colon Current Visit: Yes Status: Acute Code(s): C18.7 - MALIGNANT NEOPLASM OF SIGMOID COLON SNOMED Code(s): 176572519
--- NOTE | 2019-10-12 15:07 | P.PN ---
Subjective Progress Note Date: 10/12/19 Principal diagnosis: Status post transverse colon mass resection Covering for Dr. Rojas over the weekend Mrs. Randolph is a 74-year-old female with a past medical history of hypertension, hyperlipidemia admitted for rectal bleeding. She was found to have transverse colonic mass on colonoscopy and so admitted for elective resection. She is postop day #3 today. Patient is sitting up in a chair by the bedside comfortably. She states that she has been having diarrhea since last night. She does have mild abdominal discomfort. Patient denies having any fevers chills or rigors. No chest pain or difficulty in breathing. No dysuria or hematuria. No cough or difficulty in breathing. Patient's labs and medications have been reviewed. Active Medications Hydrocodone Bitart/Acetaminophen ([place] 5-325) 1 each PO Q4HR PRN PRN Reason: Pain Amlodipine Besylate (Norvasc) 5 mg PO DAILY [facility] Last Admin: 10/12/19 08:42 Dose: Not Given Documented by: Ascorbic Acid (Vitamin C) 500 mg PO DAILY [facility] Last Admin: 10/12/19 08:49 Dose: 500 mg Documented by: Aspirin (Aspirin) 81 mg PO DAILY [facility] Last Admin: 10/12/19 08:49 Dose: 81 mg Documented by: Atorvastatin Calcium (Lipitor) 10 mg PO HS [facility] Last Admin: 10/11/19 22:26 Dose: 10 mg Documented by: Benzocaine/Menthol (Cepacol Lozenge) 1 each MUCOUS MEM Q1HR PRN PRN Reason: Sore Throat Famotidine (Pepcid) 20 mg IV BID [facility] Last Admin: 10/12/19 08:49 Dose: 20 mg Documented by: Heparin Sodium (Porcine) (Heparin) 5,000 unit SQ Q8HR [facility] Last Admin: 10/12/19 08:40 Dose: Not Given Documented by: Hydromorphone HCl (Dilaudid) 1 mg IVP Q3HR PRN PRN Reason: Severe Pain Last Admin: 10/12/19 14:33 Dose: 1 mg Documented by: Hydromorphone HCl (Dilaudid) 0.5 mg IVP Q3HR PRN PRN Reason: Pain Last Admin: 10/11/19 15:01 Dose: 0.5 mg Documented by: Lactated Ringer's (Lactated Ringers) 1,000 mls @ 20 mls/hr IV .Q24H [facility] Last Admin: 10/12/19 08:40 Dose: Not Given Documented by: Ropivacaine 250 mg/ Fentanyl Citrate 625 mcg/ Sodium Chloride 250 mls @ 0 mls/hr EPIDURAL .Q0M PRN; Protocol PRN Reason: Pain Control Last Admin: 10/11/19 15:14 Dose: 5 mls/hr Documented by: Dextrose/Sodium Chloride (Dextrose 5%-1/2ns Iv Soln) 1,000 mls @ 100 mls/hr IV .Q10H [facility] Last Admin: 10/12/19 10:39 Dose: 100 mls/hr Documented by: Ketorolac Tromethamine (Toradol) 15 mg IVP Q6HR PRN PRN Reason: Pain Stop: 10/15/19 08:20 Lidocaine HCl (.Xylocaine 1% Inj (10mg/Ml) For Iv Start) 0.1 ml INTRADERMA PER PROTOCOL PRN PRN Reason: IV Start Last Admin: 10/09/19 12:10 Dose: 0.1 ml Documented by: Lisinopril (Zestril) 10 mg PO DAILY [facility] Last Admin: 10/12/19 08:42 Dose: Not Given Documented by: Metoclopramide HCl (Reglan) 10 mg IVP Q6HR PRN PRN Reason: Nausea and Vomiting Naloxone HCl (Narcan) 0.2 mg IV Q2M PRN PRN Reason: Opioid Reversal Ondansetron HCl (Zofran) 4 mg IVP Q8HR PRN PRN Reason: Nausea And Vomiting Last Admin: 10/12/19 14:37 Dose: 4 mg Documented by: Objective - Vital Signs Vital signs: Vital Signs Temp 97.9 F 10/12/19 07:24 Pulse 95 10/12/19 07:24 Resp 16 10/12/19 07:24 BP 109/70 10/12/19 07:24 Pulse Ox 99 10/12/19 07:24 Intake & Output 10/11/19 10/12/19 10/12/19 18:59 06:59 18:59 Intake Total 1158.75 Output Total 3275 300 500 Balance -2116.25 -300 -500 Intake: IV 1000 D5-0.45% NaCl with KCl 1000 20Meq/l 1,000 ml @ 125 mls/hr IV .Q8H [facility] Rx#: [id number] Intake, IV Titration 158.75 Amount Ropivacaine 250 mg 158.75 fentaNYL (PF) 625 mcg In Sodium Chloride 0.9% 188 ml @ Per Protocol EPIDURAL .Q0M [facility] Rx#: [id number] Output: Urine 3275 500 Uretheral ([place]) 1375 Stool 300 Other: Voiding Method Indwelling Catheter Indwelling Catheter Indwelling Catheter # Voids 1 # Bowel Movements 2 1 - Exam GEN. APPEARANCE: alert, in no apparent distress HEENT: No pallor. No icterus. RESPIRATORY EXAM: Bilateral breath sounds are positive. Mildly decreased at the lower lung bases. CARDIOVASCULAR EXAM: S1 and S2 heard. GI/ABDOMINAL EXAM: Abdomen is soft. Dressing in place and dry EXTREMITIES EXAM: No edema. NEUROLOGICAL EXAM: alert, oriented X3, no focal deficits. - Labs CBC & Chem 7: 10/12/19 06:48 10/12/19 06:48 Labs: Abnormal Lab Results - Last 24 Hours (Table) 10/12/19 10/12/19 Range/Units 06:48 06:48 RBC 3.67 L (3.80-5.40) m/uL Hgb 11.1 L (11.4-16.0) gm/dL Lymphocytes # 0.7 L (1.0-4.8) k/uL Sodium 136 L (137-145) mmol/L Potassium 5.8 H (3.5-5.1) mmol/L Glucose 145 H (74-99) mg/dL Total Protein 5.5 L (6.3-8.2) g/dL Albumin 2.8 L (3.5-5.0) g/dL Assessment and Plan Assessment: ASSESSMENT Colonic mass resection - postop day 3 Sigmoid colon cancer Hyperkalemia Hypertension Hyperlipidemia Moderate protein calorie malnutrition PLAN: Patient's potassium is high at 5.8, she has been getting potassium in her IV fluids. Her IV fluids have been changed to D5/ half normal without potassium. Patient does encouraged to continue incentive spirometry. Continue with GI DVT prophylaxis. Further recommendations to follow depending on the progress of the patient.
[2019-10-12] MEDS: HYDROcodone/APAP 5-325MG 1 EACH TAB PO PRN (17:12)
[2019-10-12] MEDS: ATORVASTATIN 10 MG TAB PO SCH (20:17)
[2019-10-13] MEDS: HEPARIN SODIUM,PORCINE 5,000 UNIT/ML 1 ML VIAL SQ SCH ×4 (00:25→22:55)
[2019-10-13] MEDS: LACTATED RINGERS 1,000 ML IV SCH (04:13)
[2019-10-13] MEDS: HYDROcodone/APAP 5-325MG 1 EACH TAB PO PRN ×3 (05:33→18:29)
[2019-10-13] MEDS: DEXTROSE 5%-0.45% NACL 1,000 ML IV SCH (05:33)
[2019-10-13 07:40] LABS: Calcium 8.3 mg/dL (8.4-10.2); Potassium 4.5 mmol/L (3.5-5.1)
[2019-10-13] MEDS: amLODIPine 5 MG TAB PO SCH (08:18)
[2019-10-13] MEDS: LISINOPRIL 10 MG TAB PO SCH (08:18)
[2019-10-13] MEDS: ASPIRIN 81 MG PO SCH (08:22)
[2019-10-13] MEDS: FAMOTIDINE 20 MG/2 ML VIAL IV SCH (08:22)
[2019-10-13] MEDS: ASCORBIC ACID 500 MG TAB PO SCH (08:22)
--- NOTE | 2019-10-13 11:18 | P.PN ---
Subjective Progress Note Date: 10/13/19 Principal diagnosis: Status post transverse colon mass resection Covering for Dr. Rojas over the weekend Mrs. Randolph is a 74-year-old female with a past medical history of hypertension, hyperlipidemia admitted for rectal bleeding. She was found to have transverse colonic mass on colonoscopy and so admitted for elective resection. On 10/13/2019 - She is postop day #4 today. Patient is lying in bed appears to be in no acute distress. Patient states that she was walking in the hallways this morning. She has mild abdominal soreness. She denies having any fevers chills or rigors. No chest pain or difficulty in breathing. No dysuria or hematuria. Patient's last bowel movement was yesterday and she is passing flatus. Patient's labs and medications have been reviewed. Active Medications Hydrocodone Bitart/Acetaminophen ([place] 5-325) 1 each PO Q4HR PRN PRN Reason: Pain Last Admin: 10/13/19 05:33 Dose: 1 each Documented by: Amlodipine Besylate (Norvasc) 5 mg PO DAILY [facility] Last Admin: 10/13/19 08:18 Dose: Not Given Documented by: Ascorbic Acid (Vitamin C) 500 mg PO DAILY [facility] Last Admin: 10/13/19 08:22 Dose: 500 mg Documented by: Aspirin (Aspirin) 81 mg PO DAILY [facility] Last Admin: 10/13/19 08:22 Dose: 81 mg Documented by: Atorvastatin Calcium (Lipitor) 10 mg PO HS [facility] Last Admin: 10/12/19 20:17 Dose: 10 mg Documented by: Benzocaine/Menthol (Cepacol Lozenge) 1 each MUCOUS MEM Q1HR PRN PRN Reason: Sore Throat Famotidine (Pepcid) 20 mg IV BID [facility] Last Admin: 10/13/19 08:22 Dose: 20 mg Documented by: Heparin Sodium (Porcine) (Heparin) 5,000 unit SQ Q8HR [facility] Last Admin: 10/13/19 08:22 Dose: 5,000 unit Documented by: Hydromorphone HCl (Dilaudid) 1 mg IVP Q3HR PRN PRN Reason: Severe Pain Last Admin: 10/12/19 14:33 Dose: 1 mg Documented by: Hydromorphone HCl (Dilaudid) 0.5 mg IVP Q3HR PRN PRN Reason: Pain Last Admin: 10/11/19 15:01 Dose: 0.5 mg Documented by: Lactated Ringer's (Lactated Ringers) 1,000 mls @ 20 mls/hr IV .Q24H [facility] Last Admin: 10/13/19 04:13 Dose: Not Given Documented by: Ropivacaine 250 mg/ Fentanyl Citrate 625 mcg/ Sodium Chloride 250 mls @ 0 mls/hr EPIDURAL .Q0M PRN; Protocol PRN Reason: Pain Control Last Admin: 10/11/19 15:14 Dose: 5 mls/hr Documented by: Dextrose/Sodium Chloride (Dextrose 5%-1/2ns Iv Soln) 1,000 mls @ 50 mls/hr IV .Q20H [facility] Last Admin: 10/13/19 05:33 Dose: 50 mls/hr Documented by: Ketorolac Tromethamine (Toradol) 15 mg IVP Q6HR PRN PRN Reason: Pain Stop: 10/15/19 08:20 Last Admin: 10/12/19 20:17 Dose: 15 mg Documented by: Lidocaine HCl (.Xylocaine 1% Inj (10mg/Ml) For Iv Start) 0.1 ml INTRADERMA PER PROTOCOL PRN PRN Reason: IV Start Last Admin: 10/09/19 12:10 Dose: 0.1 ml Documented by: Lisinopril (Zestril) 10 mg PO DAILY [facility] Last Admin: 10/13/19 08:18 Dose: Not Given Documented by: Metoclopramide HCl (Reglan) 10 mg IVP Q6HR PRN PRN Reason: Nausea and Vomiting Naloxone HCl (Narcan) 0.2 mg IV Q2M PRN PRN Reason: Opioid Reversal Ondansetron HCl (Zofran) 4 mg IVP Q8HR PRN PRN Reason: Nausea And Vomiting Last Admin: 10/12/19 14:37 Dose: 4 mg Documented by: Objective - Vital Signs Vital signs: Vital Signs Temp 97.4 F L 10/13/19 07:00 Pulse 86 10/13/19 07:00 Resp 18 10/13/19 07:00 BP 119/72 10/13/19 07:00 Pulse Ox 100 10/13/19 07:00 Intake & Output 10/12/19 10/13/19 10/13/19 18:59 06:59 18:59 Intake Total 1100 Output Total 975 1080 300 Balance -975 20 -300 Intake: Intake, IV Titration 700 Amount Dextrose 5%-0.45% NaCl 1, 700 000 ml @ 50 mls/hr IV . Q20H [facility] Rx#:[id number] Oral 400 Output: Urine 975 1080 300 Other: Voiding Method Indwelling Catheter Indwelling Catheter Toilet # Voids 1 1 1 # Bowel Movements 1 - Exam GEN. APPEARANCE: alert, in no apparent distress HEENT: No pallor. No icterus. RESPIRATORY EXAM: Bilateral breath sounds are positive. Mildly decreased at the lower lung bases. CARDIOVASCULAR EXAM: S1 and S2 heard. GI/ABDOMINAL EXAM: Abdomen is soft. Dressing in place and dry EXTREMITIES EXAM: No edema. NEUROLOGICAL EXAM: alert, oriented X3, no focal deficits. - Labs CBC & Chem 7: 10/12/19 06:48 10/13/19 07:11 Labs: Abnormal Lab Results - Last 24 Hours (Table) 10/13/19 Range/Units 07:11 Chloride 109 H (98-107) mmol/L Glucose 100 H (74-99) mg/dL Calcium 8.3 L (8.4-10.2) mg/dL Assessment and Plan Assessment: ASSESSMENT Colonic mass resection - postop day #4 Sigmoid colon cancer Hyperkalemia - resolved Hypertension Hyperlipidemia Moderate protein calorie malnutrition PLAN: Patient's progression trended down to 4.5 today, after IV supplements were discontinued yesterday. Patient does encouraged to continue incentive spirometry. Continue with GI DVT prophylaxis. Further recommendations to follow depending on the progress of the patient.
--- NOTE | 2019-10-13 13:27 | P.PN ---
Subjective Progress Note Date: 10/13/19 CHIEF COMPLAINT: Sigmoid colon mass HISTORY OF PRESENT ILLNESS: The patient is a 74-year-old status post low anterior resection for sigmoid colon mass. She is passing flatus and having bowel movements. She is sitting up in chair. She feels very well. She is tolerating her liquid diet. She has an appetite and wants to eat more. ROS: No reports of nausea and vomiting. No fevers or chills. No new chest pain. No productive sputum PHYSICAL EXAM: VITAL SIGNS: Reviewed CONSTITUTIONAL: Well developed and in no acute distress. EYES: Conjuctivae without sclera icterus. Extraocular movements grossly intact. HEAD, EARS, NOSE, THROAT: Moist buccal mucosa. Head is atraumatic, normocephalic. Hears conversational speech. No nasal drainage. RESPIRATORY: Non-labored respirations and equal bilateral excursions. CARDIOVASCULAR: Palpable 2+ radial pulses. ABDOMEN: Soft. No peritonitis. Soft. Dressing dry and intact. MUSCULOSKELETAL: No gross deformity of the lower extremities noted. No clubbing. No cyanosis. SKIN: Good skin turgor. Well perfused. NEUROLOGIC: Cranial nerves I through XII grossly intact. No focal or lateralizing signs. PSYCH: Appropriate affect. Alert and oriented to person, place and time. CLINICAL LABS: White blood cell count normal. Hgb up to 11.1 from 9.0 PATHOLOGY: Over 9 cm centimeter adenocarcinoma sigmoid colon mass. 0 out of 15 lymph nodes involvement ASSESSMENT: 1. Sigmoid colon cancer PLAN: 1. Diet has been advanced. 2. Continue ambulation Objective - Vital Signs Vital signs: Vital Signs Temp 97.4 F L 10/13/19 07:00 Pulse 86 10/13/19 07:00 Resp 18 10/13/19 07:00 BP 119/72 10/13/19 07:00 Pulse Ox 100 10/13/19 07:00 Intake & Output 10/12/19 10/13/19 10/13/19 18:59 06:59 18:59 Intake Total 1100 Output Total 975 1080 300 Balance -975 20 -300 Intake: Intake, IV Titration 700 Amount Dextrose 5%-0.45% NaCl 1, 700 000 ml @ 50 mls/hr IV . Q20H [facility] Rx#:[id number] Oral 400 Output: Urine 975 1080 300 Other: Voiding Method Indwelling Catheter Indwelling Catheter Toilet # Voids 1 1 1 # Bowel Movements 1 - Labs CBC & Chem 7: 10/12/19 06:48 10/13/19 07:11 Labs: Abnormal Lab Results - Last 24 Hours (Table) 10/13/19 Range/Units 07:11 Chloride 109 H (98-107) mmol/L Glucose 100 H (74-99) mg/dL Calcium 8.3 L (8.4-10.2) mg/dL Assessment and Plan (1) Cancer of sigmoid colon Current Visit: Yes Status: Acute Code(s): C18.7 - MALIGNANT NEOPLASM OF SIGMOID COLON SNOMED Code(s): 221431794
[2019-10-13 13:52] VITALS: BMI 25.9
[2019-10-13] MEDS: ATORVASTATIN 10 MG TAB PO SCH (20:50)
[2019-10-13] MEDS: FAMOTIDINE 20 MG TAB PO SCH (20:50)
[2019-10-13 23:45] VITALS: RESP 16
[2019-10-14] MEDS: DEXTROSE 5%-0.45% NACL 1,000 ML IV SCH (01:02)
[2019-10-14] MEDS: LACTATED RINGERS 1,000 ML IV SCH (02:15)
[2019-10-14] MEDS: HYDROcodone/APAP 5-325MG 1 EACH TAB PO PRN (05:10)
--- NOTE | 2019-10-14 07:48 | P.PN ---
Subjective Principal diagnosis: Status post partial colectomy. This is a continue progress on a 74-year-old white female essentially admitted for rectal bleeding. The patient ended up having colonoscopy which showed lesion which was removed last week. The patient is doing quite well today. Tolerating oral pain medication. The patient states some fatigue and there has been some discussion about possible rehab placement. Objective - Vital Signs Vital signs: Vital Signs Temp 98.3 F 10/13/19 23:00 Pulse 101 H 10/13/19 23:00 Resp 16 10/13/19 23:00 BP 145/83 10/13/19 23:00 Pulse Ox 98 10/13/19 23:00 Intake & Output 10/13/19 10/14/19 10/14/19 18:59 06:59 18:59 Intake Total 350 Output Total 300 Balance -300 350 Weight 73.1 kg Intake: Oral 350 Output: Urine 300 Other: Voiding Method Toilet # Voids 1 4 # Bowel Movements 2 - Constitutional General appearance: Present: average body habitus - EENT Eyes: Absent: abnormal pupil - Neck Neck: Present: lymphadenopathy - Respiratory Respiratory: bilateral: CTA - Cardiovascular Rhythm: regular Heart sounds: normal: S1, S2 Abnormal Heart Sounds: Absent: S3 Gallop - Gastrointestinal General gastrointestinal: Present: soft. Absent: tenderness - Integumentary Integumentary: Present: normal - Neurologic Neurologic: Present: CNII-XII intact. Absent: focal deficits - Musculoskeletal Musculoskeletal: Present: strength equal bilaterally - Psychiatric Psychiatric: Present: A&O x's 3, appropriate affect - Labs CBC & Chem 7: 10/12/19 06:48 10/13/19 07:11 Assessment and Plan (1) Rectal bleeding Current Visit: Yes Status: Acute Code(s): K62.5 - HEMORRHAGE OF ANUS AND RECTUM SNOMED Code(s): 21585627 (2) Hypertension Current Visit: Yes Status: Acute Code(s): I10 - ESSENTIAL (PRIMARY) HYPERTENSION SNOMED Code(s): 88446006 (3) Hyperlipidemia Current Visit: Yes Status: Acute Code(s): E78.5 - HYPERLIPIDEMIA, UNSPECIFIED SNOMED Code(s): 33490680 (4) Colonic mass Current Visit: Yes Status: Acute Code(s): K63.89 - OTHER SPECIFIED DISEASES OF INTESTINE SNOMED Code(s): 951507580 Plan: Standard postop protocol. DVT and GI prophylaxis as necessary. Reconcile home medications. Advance diet as per surgery. Watch blood pressure closely. Awaiting pathology otherwise. Time with Patient: Less than 30
[2019-10-14] MEDS: ASPIRIN 81 MG PO SCH (08:04)
[2019-10-14] MEDS: LISINOPRIL 10 MG TAB PO SCH (08:04)
[2019-10-14] MEDS: HEPARIN SODIUM,PORCINE 5,000 UNIT/ML 1 ML VIAL SQ SCH (08:04)
[2019-10-14] MEDS: ASCORBIC ACID 500 MG TAB PO SCH (08:04)
[2019-10-14] MEDS: amLODIPine 5 MG TAB PO SCH (08:04)
[2019-10-14] MEDS: FAMOTIDINE 20 MG TAB PO SCH (08:04)
[2019-10-14 08:20] VITALS: BP 117/71; PULSE 91; TEMP 97.6
--- NOTE | 2019-10-14 11:31 | P.DS ---
Providers Date of admission: 10/09/19 10:41 Expected date of discharge: 10/14/19 Attending physician: Ajit Young Consults: 10/09/19 15:36 Consult Physician Routine Consulting Provider: Adan Rojas Consult Reason/Comments: Medical management Do you want consulting provider notified?: Yes Primary care physician: Adan Rojas Hospital Course: 74-year-old female who is status post low anterior resection secondary to sigmoid colon mass with extension to right pelvic sidewall. Patient is doing well postoperatively without any immediate complications. She is tolerating diet without nausea or vomiting. Passing flatus and having bowel movements. Vital signs have been stable. Her pain is controlled on oral medications. She is stable for discharge home today. Please see EMR for further hospital course details. Discharge Diagnosis: 1. Sigmoid colon mass with extension to right pelvic sidewall, status post low anterior resection Nurse practitioner note has been reviewed by physician. Signing provider agrees with the documented findings, assessment, and plan of care. Plan - Discharge Summary Discharge Rx Participant: Yes New Discharge Prescriptions: New Hydrocodone/Acetaminophen [[place] 5-325] 1 tab PO Q6HR PRN 3 Days #12 tab PRN Reason: Pain No Action amLODIPine BESYLATE/BENAZEPRIL [Lotrel 5-10 MG] 1 cap PO DAILY Atorvastatin [Lipitor] 10 mg PO HS Aspirin 81 mg PO DAILY Ascorbic Acid [Vitamin C] 500 mg PO DAILY Discharge Medication List Ascorbic Acid [Vitamin C] 500 mg PO DAILY 09/27/19 [History] Aspirin 81 mg PO DAILY 09/27/19 [History] Atorvastatin [Lipitor] 10 mg PO HS 09/27/19 [History] amLODIPine BESYLATE/BENAZEPRIL [Lotrel 5-10 MG] 1 cap PO DAILY 09/27/19 [History] Hydrocodone/Acetaminophen [[place] 5-325] 1 tab PO Q6HR PRN 3 Days #12 tab 10/14/19 [Rx] Follow up Appointment(s)/Referral(s): [facility], [NON-STAFF] - 1-2 Days Adan Rojas MD [Primary Care Provider] - Ajit Young MD [STAFF PHYSICIAN] - 1 Week Activity/Diet/Wound Care/Special Instructions: No driving while taking [place] No lifting over 10 pounds You may shower. No soaking or tub baths Very light activity until you are reevaluated at your follow up appointment with your surgeon
== END 2019-10-14 13:31 | disposition home health service (06) | DRG 330 ==
LOC: 2ORMAIN 10:41 → 4SSUR 15:48
PROVIDERS: ADMIT Surgery; ATTEND Surgery
PROC: 0DBN0ZZ Excision of Sigmoid Colon, Open Approach (ICD-10-PCS; principal; 2019-10-09 12:30)
PROC: 0DBP0ZZ Excision of Rectum, Open Approach (ICD-10-PCS; principal; 2019-10-09 12:30)
DX: C18.7 Malignant neoplasm of sigmoid colon (principal); E44.0 Moderate protein-calorie malnutrition; E78.5 Hyperlipidemia, unspecified; E87.5 Hyperkalemia; I10 Essential (primary) hypertension; J44.9 Chronic obstructive pulmonary disease, unspecified; Z79.82 Long term (current) use of aspirin; Z79.899 Other long term (current) drug therapy; Z87.01 Personal history of pneumonia (recurrent); Z87.891 Personal history of nicotine dependence; Z90.710 Acquired absence of both cervix and uterus
CPT/HCPCS: 80048; 80053; 84132; 85025; 86850; 86900; 86901; 88309

== ENCOUNTER → 2020-09-28 | Outpatient (CLI) | payer MEDICARE, BC | END | disposition home or self-care (01) | LOC: LABPAT 08:51 | PROVIDERS: ATTEND Surgery | DX: Z01.818 Encounter for other preprocedural examination (principal); K43.2 Incisional hernia without obstruction or gangrene | CPT/HCPCS: 36415; 86850; 86900; 86901; 93005 ==

== ENCOUNTER 2020-10-07 07:33 | Day surgery (SDC) | payer MEDICARE, BC ==
[2020-10-02 15:21] VITALS: BMI 27.8
[~2020-10-07 07:33] MED LIST changes: +ACETAMINOPHEN TAB 500 MG TAB PO PRN; -DEXAMETHASONE SOD PHOSPHATE 10 MG/ML 1 ML VIAL IV ONE; +DEXAMETHASONE SOD PHOSPHATE 4 MG/ML 1 ML VIAL IV ONE; -HEPARIN SODIUM,PORCINE 5,000 UNIT/ML 1 ML VIAL SQ ONE; +HEPARIN SODIUM,PORCINE 5,000 UNIT/ML 1 ML VIAL SQ PRN; -HYDROmorphone 0.5 MG/0.5 ML SYRINGE IVP PRN; +LACTATED RINGERS 1,000 ML IV SCH; -LIDOCAINE 1% 20 ML VIAL (10MG/ML) FOR IV START INTRADERMA PRN; -MIDAZOLAM 2 MG/2 ML VIAL IV PRN; -SCOPOLAMINE 1.5MG/72HR PATCH TRANSDERM ONE; -metroNIDAZOLE-NS PMX 500 MG in SALINE 1 100ML.BAG IVPB ONE
[2020-10-07] MEDS ORDERED: LIDOCAINE 1% (10MG/ML) FOR IV START IV ONE (08:45)
[2020-10-07 08:49] LABS: Basophils % (A) 0 %; Eosinophils # (A) 0.2 k/uL (0-0.7); Eosinophils % (A) 3 %; HCT 39.7 % (34.0-46.0); HGB 12.9 gm/dL (11.4-16.0); Lymphocytes # (A) 1.7 k/uL (1.0-4.8); Lymphocytes % (A) 28 %; MCH 30.5 pg (25.0-35.0); MCHC 32.6 g/dL (31.0-37.0); MCV 93.8 fL (80.0-100.0); Mean Platelet Volume 8.5; Monocytes # (A) 0.3 k/uL (0-1.0); Monocytes % (A) 5 %; Neutrophils # (A) 3.8 k/uL (1.3-7.7); Neutrophils % (A) 62 %; Platelet Count 255 k/uL (150-450); RBC 4.24 m/uL (3.80-5.40); RDW 12.2 % (11.5-15.5); WBC 6.1 k/uL (3.8-10.6)
[2020-10-07] MEDS ORDERED: MIDAZOLAM 2 MG/2 ML VIAL IVP ONE (08:55)
[2020-10-07] MEDS ORDERED: fentaNYL (PF) 50 MCG/ML 2 ML AMP IVP ONE (08:55)
[2020-10-07 09:02] LABS: Albumin 3.7 g/dL (3.5-5.0); Calcium 8.5 mg/dL (8.4-10.2); Potassium 4.5 mmol/L (3.5-5.1); Total Bilirubin 0.5 mg/dL (0.2-1.3); Total Protein 6.3 g/dL (6.3-8.2)
--- NOTE | 2020-10-07 09:11 | P.ANPRN ---
Procedure Note - Anesthesia - Nerve Block Performed Bilateral Rectus Abdominis Single Time Out Performed: Yes Date of Procedure: 10/07/20 Procedure Start Time: 08:54 Procedure Stop Time: 09:05 Location of Patient: PreOp Indication: Requested by Surgeon Specifically requested for management of pain by DrImelda: Ajit Young Sedation Type: Sedate with meaningful contact maintained Preparation: Sterile Prep Position: Supine Needle Types: Pajunk Needle Gauge: 21 Ultrasound used to visualize needle placement: Yes Ultrasound used to observe medication spread: Yes Injectate: 0.5% Ropivacaine (see comment for volume) (20 ml plus dexamethason 4 mg per side) Blood Aspirated: No Pain Paresthesia on Injection Noted: No Resistance on Injection: Normal Image Stored and Saved: Yes Events: Uneventful and Well Tolerated
--- NOTE | 2020-10-07 11:27 | P.GSHP ---
History of Present Illness H&P Date: 10/07/20 Chief Complaint: Incisional hernia This a 75-year-old female with history of exploratory laparotomy for colon cancer. Patient has developed an incisional hernia. She presents today for laparoscopic robotic-assisted repair. Past Medical History Past Medical History: COPD, Hyperlipidemia, Hypertension, Pneumonia Additional Past Medical History / Comment(s): heart murmur, colon cancer (Oct 2019), psoriasis., incisional hernia History of Any Multi-Drug Resistant Organisms: None Reported Past Surgical History: Bowel Resection, Hysterectomy, Orthopedic Surgery Additional Past Surgical History / Comment(s): pina foot surg., bowel resection (oct 2019) Past Anesthesia/Blood Transfusion Reactions: No Reported Reaction Past Psychological History: No Psychological Hx Reported Smoking Status: Former smoker Past Alcohol Use History: None Reported Additional Past Alcohol Use History / Comment(s): Quit smoking 1 year ago (2018), smoked on & off since , quit for long periods of time, smoked 1 pack every 2-3 days Past Drug Use History: None Reported - Past Family History Brother(s) Family Medical History: Cancer Mother Family Medical History: Deep Vein Thrombosis (DVT) Medications and Allergies Home Medications Medication Instructions Recorded Confirmed Type Aspirin 81 mg PO DAILY 09/27/19 10/02/20 History Atorvastatin [Lipitor] 10 mg PO HS 09/27/19 10/02/20 History amLODIPine BESYLATE/BENAZEPRIL 1 cap PO DAILY 09/27/19 10/02/20 History [Lotrel 5-10 MG] Ascorbic Acid [Vitamin C] 1,000 mg PO DAILY 10/02/20 10/02/20 History Cholecalciferol [Vitamin D3 (25 1,000 unit PO DAILY 10/02/20 10/02/20 History Mcg = 1000 Iu)] Cyanocobalamin (Vitamin B-12) 1,000 mcg PO DAILY 10/02/20 10/02/20 History [Vitamin B-12] Zinc 50 mg PO DAILY 10/02/20 10/02/20 History Allergies Allergy/AdvReac Type Severity Reaction Status Date / Time No Known Allergies Allergy Verified 10/02/20 14:43 Surgical - Exam Vital Signs Temp Pulse Resp BP Pulse Ox 97.8 F 92 20 118/65 97 10/07/20 08:09 10/07/20 08:09 10/07/20 08:09 10/07/20 08:09 10/07/20 08:09 - General well developed, well nourished, no distress - Eyes PERRL - ENT normal pinna - Neck no masses - Respiratory normal expansion - Cardiovascular Rhythm: regular - Abdomen Abdomen: soft, non tender Hernia: incisional (5 cm) Results - Labs 10/07/20 08:39 10/07/20 08:39 Abnormal Lab Results - Last 24 Hours (Table) 10/07/20 Range/Units 08:39 Chloride 108 H (98-107) mmol/L BUN 20 H (7-17) mg/dL Glucose 104 H (74-99) mg/dL Diabetes panel 10/07/20 Range/Units 08:39 Sodium 138 (137-145) mmol/L Potassium 4.5 (3.5-5.1) mmol/L Chloride 108 H (98-107) mmol/L Carbon Dioxide 27 (22-30) mmol/L BUN 20 H (7-17) mg/dL Creatinine 0.90 (0.52-1.04) mg/dL Glucose 104 H (74-99) mg/dL Calcium 8.5 (8.4-10.2) mg/dL AST 17 (14-36) U/L ALT 13 (4-34) U/L Alkaline Phosphatase 67 (38-126) U/L Total Protein 6.3 (6.3-8.2) g/dL Albumin 3.7 (3.5-5.0) g/dL Calcium panel 10/07/20 Range/Units 08:39 Calcium 8.5 (8.4-10.2) mg/dL Albumin 3.7 (3.5-5.0) g/dL Pituitary panel 10/07/20 Range/Units 08:39 Sodium 138 (137-145) mmol/L Potassium 4.5 (3.5-5.1) mmol/L Chloride 108 H (98-107) mmol/L Carbon Dioxide 27 (22-30) mmol/L BUN 20 H (7-17) mg/dL Creatinine 0.90 (0.52-1.04) mg/dL Glucose 104 H (74-99) mg/dL Calcium 8.5 (8.4-10.2) mg/dL Adrenal panel 10/07/20 Range/Units 08:39 Sodium 138 (137-145) mmol/L Potassium 4.5 (3.5-5.1) mmol/L Chloride 108 H (98-107) mmol/L Carbon Dioxide 27 (22-30) mmol/L BUN 20 H (7-17) mg/dL Creatinine 0.90 (0.52-1.04) mg/dL Glucose 104 H (74-99) mg/dL Calcium 8.5 (8.4-10.2) mg/dL Total Bilirubin 0.5 (0.2-1.3) mg/dL AST 17 (14-36) U/L ALT 13 (4-34) U/L Alkaline Phosphatase 67 (38-126) U/L Total Protein 6.3 (6.3-8.2) g/dL Albumin 3.7 (3.5-5.0) g/dL Assessment and Plan Assessment: Incisional hernia. We'll perform laparoscopic robotic-assisted repair.
[2020-10-07] MEDS ORDERED: MIDAZOLAM 2 MG/2 ML VIAL ONE (11:56)
[2020-10-07] MEDS ORDERED: PROPOFOL 10 MG/ML 20 ML VIAL IV ONE (11:56)
[2020-10-07] MEDS ORDERED: SUCCINYLCHOLINE CHLORIDE 100 MG/5 ML SYR IV ONE (11:56)
[2020-10-07] MEDS ORDERED: NEOSTIGMINE 1 MG/ML 10 ML VIAL ONE (11:56)
[2020-10-07] MEDS ORDERED: GLYCOPYRROLATE 0.2 MG/ML 2 ML VIAL ONE (11:56)
[2020-10-07] MEDS ORDERED: fentaNYL (PF) 50 MCG/ML 2 ML AMP ONE (11:56)
[2020-10-07] MEDS ORDERED: LIDOCAINE 1% INJ 10MG/ML (20 ML MDV) ONE (11:56)
[2020-10-07] MEDS ORDERED: ROCURONIUM 10 MG/ML (10 ML VIAL) IV ONE (11:56)
[2020-10-07] MEDS ORDERED: PHENYLEPHRINE-0.9% NACL SYG 1 MG/10 ML SYRINGE ONE (11:56)
[2020-10-07] MEDS ORDERED: ROPIVACAINE 5 MG/ML 30 ML VIAL ONE (11:56)
[2020-10-07] MEDS ORDERED: DEXAMETHASONE SOD PHOSPHATE 4 MG/ML 1 ML VIAL ONE (11:56)
[2020-10-07] MEDS ORDERED: BUPIVACAINE (PF) 0.25% 30 ML VIAL SQ ONE (12:01)
--- NOTE | 2020-10-07 13:02 | P.OP ---
Date of Procedure: 10/07/20 Preoperative Diagnosis: Incisional hernia Postoperative Diagnosis: Incisional hernia Procedure(s) Performed: Laparoscopic robotic-assisted repair of incisional hernia Anesthesia: BEBE Surgeon: Ajit Young Estimated Blood Loss (ml): 5 Pathology: none sent Condition: stable Disposition: PACU Description of Procedure: The patient was placed on the operating table in the supine position. He received general anesthesia. His abdomen was prepped and draped usual fashion. Using a 5 mm optical trocar under direct visualization the peritoneal cavity was entered in the left upper quadrant. The abdomen was then insufflated. The laparoscope was placed back into the perineal cavity. Next a 8 mm robotic trocar was placed in the left lower quadrant and a 12 mm robotic trocar was placed in the left lateral position. The original 5 mm trocar was exchanged for a 8 mm robotic trocar. The patient's placed in the left side up position. And the patient was docked to the robot. The incisional hernia was visualized. Using hook cautery the peritoneum over the incisional hernia was excised. The fascial opening was repaired using 0V LOC suture. Next a piece of 11 cm round ventral light ST mesh was placed into the. Cavity and secured with 2 OV lock suture. The patient was undocked the robot. The needles were retrieved. The fascia of the 12 mm trocar site was closed with 0 Ethibond suture. Skin was closed interrupted 3-0 Monocryl suture. Dermabond dressings was applied. Patient tolerated procedure well and was sent to recovery room stable condition.
[2020-10-07 13:11] VITALS: TEMP 97
[2020-10-07] MEDS: HYDROmorphone 0.5 MG/0.5 ML SYRINGE IVP PRN ×2 (13:22→13:39)
[2020-10-07] MEDS ORDERED: LACTATED RINGERS 1,000 ML IV ONE ×2 (14:13)
[2020-10-07] MEDS ORDERED: oxyCODONE-APAP 5-325MG 1 EACH TAB ONE (14:55)
[2020-10-07] MEDS ORDERED: oxyCODONE-APAP 5-325MG 1 EACH TAB PO ONE (14:56)
[2020-10-07 16:00] VITALS: BP 121/73; PULSE 80; RESP 18
== END 2020-10-07 16:29 | disposition home or self-care (01) ==
LOC: OR 07:33
PROVIDERS: ATTEND Surgery
DX: K43.2 Incisional hernia without obstruction or gangrene (principal); I10 Essential (primary) hypertension; J44.9 Chronic obstructive pulmonary disease, unspecified; E78.5 Hyperlipidemia, unspecified; L40.9 Psoriasis, unspecified; Z85.038 Personal history of other malignant neoplasm of large intestine; Z87.01 Personal history of pneumonia (recurrent); Z87.891 Personal history of nicotine dependence; Z90.49 Acquired absence of other specified parts of digestive tract; Z90.710 Acquired absence of both cervix and uterus; Z98.890 Other specified postprocedural states; Z79.82 Long term (current) use of aspirin; Z79.899 Other long term (current) drug therapy; Z82.49 Family history of ischemic heart disease and other diseases of the circulatory system; Z80.9 Family history of malignant neoplasm, unspecified
CPT/HCPCS: 64488; 80053; 85025; 49654; C1781; J2250; J1644; J1100; J2710; J0690; J2405; J2001; J3010; J2795; J2370; J0330; J2704; J1170; 36415; 86850; 86900; 86901

== ENCOUNTER 2020-10-22 08:34 | Day surgery (SDC) | payer MEDICARE, BC ==
[2020-10-20 14:24] VITALS: BMI 28.8
[~2020-10-22 08:34] MED LIST changes: -ACETAMINOPHEN TAB 500 MG TAB PO PRN; -DEXAMETHASONE SOD PHOSPHATE 4 MG/ML 1 ML VIAL IV ONE; -HEPARIN SODIUM,PORCINE 5,000 UNIT/ML 1 ML VIAL SQ PRN; +LIDOCAINE 1% (10MG/ML) FOR IV START INTRADERMA PRN; -ONDANSETRON 4 MG/2 ML VIAL IVP ONE
[2020-10-22 10:07] VITALS: TEMP 97.8
[2020-10-22] MEDS ORDERED: LACTATED RINGERS 1,000 ML IV ONE (10:07)
[2020-10-22] MEDS ORDERED: LIDOCAINE 1% INJ 10MG/ML (20 ML MDV) ONE (10:51)
[2020-10-22] MEDS ORDERED: PROPOFOL 10 MG/ML 20 ML VIAL IV ONE (10:51)
--- NOTE | 2020-10-22 10:59 | P.GSHP ---
History of Present Illness H&P Date: 10/22/20 Chief Complaint: History of colon cancer This a 75-year-old female who has a previous history of colon cancer. Patient presents today for colonoscopy. She denies a significant GI complaints. Past Medical History Past Medical History: COPD, Hyperlipidemia, Hypertension, Pneumonia Additional Past Medical History / Comment(s): hx. heart murmur, pneumonia-now resolved,colon cancer 2019, psoriasis, History of Any Multi-Drug Resistant Organisms: None Reported Past Surgical History: Bowel Resection, Hernia Repair, Hysterectomy, Orthopedic Surgery Additional Past Surgical History / Comment(s): pina foot surg. incisional hernia repair on 10/07/20 Past Anesthesia/Blood Transfusion Reactions: No Reported Reaction Smoking Status: Former smoker - Past Family History Brother(s) Family Medical History: Cancer Mother Family Medical History: Deep Vein Thrombosis (DVT) Medications and Allergies Home Medications Medication Instructions Recorded Confirmed Type Aspirin 81 mg PO DAILY 09/27/19 10/20/20 History Atorvastatin [Lipitor] 10 mg PO HS 09/27/19 10/20/20 History amLODIPine BESYLATE/BENAZEPRIL 1 cap PO DAILY 09/27/19 10/20/20 History [Lotrel 5-10 MG] Ascorbic Acid [Vitamin C] 1,000 mg PO DAILY 10/02/20 10/20/20 History Cholecalciferol [Vitamin D3 (25 1,000 unit PO DAILY 10/02/20 10/20/20 History Mcg = 1000 Iu)] Cyanocobalamin (Vitamin B-12) 1,000 mcg PO DAILY 10/02/20 10/20/20 History [Vitamin B-12] Ibuprofen [Motrin] 600 mg PO Q6HR PRN #40 tab 10/07/20 10/20/20 Rx Acetaminophen Tab [Tylenol] 650 mg PO Q6H PRN 10/20/20 10/20/20 History Zinc 50 mg PO DAILY 10/20/20 10/20/20 History Allergies Allergy/AdvReac Type Severity Reaction Status Date / Time No Known Allergies Allergy Verified 10/20/20 14:16 Surgical - Exam Vital Signs Temp Pulse Resp BP Pulse Ox 97.8 F 67 18 160/67 98 10/22/20 10:06 10/22/20 10:06 10/22/20 10:06 10/22/20 10:10/22/20 10:06 - General well developed, well nourished, no distress - Eyes PERRL - ENT normal pinna - Neck no masses - Respiratory normal expansion - Cardiovascular Rhythm: regular - Abdomen Abdomen: soft, non tender Assessment and Plan Assessment: History of colon cancer. We'll perform colonoscopy.
--- NOTE | 2020-10-22 11:18 | P.OP ---
Date of Procedure: 10/22/20 Preoperative Diagnosis: History of colon cancer Postoperative Diagnosis: Anastomotic stricture Procedure(s) Performed: Colonoscopy Anesthesia: MAC Surgeon: Ajit Yougn Pathology: none sent Condition: stable Disposition: PACU Description of Procedure: The patient's placed on the endoscopy table lateral position. She received IV sedation. Digital rectal exam performed which revealed no rebound. The scope was then placed patient anus and passed with colon. The anastomosis was visualized. It appeared to be strictured. The colonoscope could not be entered through the anastomosis. Scope was withdrawn and a pediatric scope was used. This however could not be entered into the anastomosis. At this point the scope was withdrawn. Patient top procedure well. She'll follow-up the office next week.
[2020-10-22 12:12] VITALS: BP 122/70; PULSE 88; RESP 18
== END 2020-10-22 12:20 | disposition home or self-care (01) ==
LOC: ORWHC2ENDO 08:34
PROVIDERS: ATTEND Surgery
DX: K91.89 Other postprocedural complications and disorders of digestive system (principal); Z53.09 Procedure and treatment not carried out because of other contraindication; K63.89 Other specified diseases of intestine; Z85.038 Personal history of other malignant neoplasm of large intestine; J44.9 Chronic obstructive pulmonary disease, unspecified; I10 Essential (primary) hypertension; E78.5 Hyperlipidemia, unspecified; K21.9 Gastro-esophageal reflux disease without esophagitis; L40.9 Psoriasis, unspecified; Z87.891 Personal history of nicotine dependence; Z98.890 Other specified postprocedural states; Z90.710 Acquired absence of both cervix and uterus; Z90.49 Acquired absence of other specified parts of digestive tract; Z79.899 Other long term (current) drug therapy; Z79.82 Long term (current) use of aspirin; Z82.49 Family history of ischemic heart disease and other diseases of the circulatory system; Z80.9 Family history of malignant neoplasm, unspecified; Z87.01 Personal history of pneumonia (recurrent)
CPT/HCPCS: 45378; J2001; J2704

== ENCOUNTER → 2020-12-02 | Outpatient (CLI) | payer MEDICARE, BC ==
--- NOTE | 2020-12-02 11:45 | FL ---
EXAMINATION TYPE: FL barium enema DATE OF EXAM: 12/02/2020 COMPARISON: CT abdomen and pelvis October 08, 2019 HISTORY: History of stage III colon cancer treated surgically October 09, 2019 with recurrent constip ation over last few days. Patient had colonoscopy last month with suggestion of possible new strictur e or narrowing. TECHNIQUE: A single contrast barium enema study is performed due to surgical history. FINDINGS: Concrete Plant Laborer view of the abdomen shows overall non-obstructive bowel gas pattern. There is rapid filling of contrast through the site of surgery and then extending all the way to the cecum. No significant stricture is thus felt present. There is well-defined mucosal irregularity in t he sigmoid colon presumed product of prior surgical anastomosis. There are a few tiny diverticula. Te rminal ileum not refluxed. Appendix not refluxed. IMPRESSION: No significant stricture identified on this study.
== END | disposition home or self-care (01) ==
LOC: RADFLMAIN 08:50
PROVIDERS: ATTEND Surgery
DX: K62.4 Stenosis of anus and rectum (principal)
CPT/HCPCS: 74270

== ENCOUNTER 2021-12-23 08:38 | Day surgery (SDC) | payer MEDICARE, BC ==
[2021-12-20 15:54] VITALS: BMI 27.1
[2021-12-23 09:22] VITALS: TEMP 98.3
[2021-12-23] MEDS ORDERED: PROPOFOL 10 MG/ML 20 ML VIAL IV ONE (10:03)
--- NOTE | 2021-12-23 10:06 | P.GSHP ---
History of Present Illness H&P Date: 12/23/21 Chief Complaint: History of colon cancer This a 76-year-old female who presents today for colonoscopy. Patient previous history of colon cancer. Patient underwent low anterior section approximately 3 years ago. Past Medical History Past Medical History: COPD, Hyperlipidemia, Hypertension, Pneumonia Additional Past Medical History / Comment(s): Colon CA dx 2019-no chemo or radiation, hx. heart murmur History of Any Multi-Drug Resistant Organisms: None Reported Past Surgical History: Bowel Resection, Hysterectomy, Orthopedic Surgery Additional Past Surgical History / Comment(s): pina foot surg. Past Anesthesia/Blood Transfusion Reactions: No Reported Reaction Additional Past Anesthesia/Blood Transfusion Reaction / Comment(s): stated "had alot of coughing up mucus after last colonoscopy and had alot pain with anesthesia medication when injected into arm states did not have an IV with last colonoscopy." Smoking Status: Former smoker - Past Family History Brother(s) Family Medical History: Cancer Mother Family Medical History: Deep Vein Thrombosis (DVT) Medications and Allergies Home Medications Medication Instructions Recorded Confirmed Type Aspirin 81 mg PO DAILY 09/27/19 12/23/21 History Atorvastatin [Lipitor] 10 mg PO HS 09/27/19 12/23/21 History amLODIPine BESYLATE/BENAZEPRIL 1 cap PO QAM 09/27/19 12/23/21 History [Lotrel 5-10 MG] Cholecalciferol [Vitamin D3 (25 1,000 unit PO DAILY 10/02/20 12/23/21 History Mcg = 1000 Iu)] Cyanocobalamin (Vitamin B-12) 1,000 mcg PO DAILY 10/02/20 12/23/21 History [Vitamin B-12] Allergies Allergy/AdvReac Type Severity Reaction Status Date / Time No Known Allergies Allergy Verified 12/23/21 09:20 Surgical - Exam Vital Signs Temp Pulse Resp BP Pulse Ox 98.3 F 89 18 145/81 95 12/23/21 09:21 12/23/21 09:21 12/23/21 09:21 12/23/21 09:21 12/23/21 09:21 - General well developed, well nourished, no distress - Eyes PERRL - ENT normal pinna - Neck no masses - Respiratory normal expansion - Cardiovascular Rhythm: regular - Abdomen Abdomen: soft, non tender Assessment and Plan Assessment: History of colon cancer. We'll perform colonoscopy.
--- NOTE | 2021-12-23 10:18 | P.OP ---
Date of Procedure: 12/23/21 Preoperative Diagnosis: History of colon cancer Postoperative Diagnosis: Internal hemorrhoids Procedure(s) Performed: Colonoscopy Anesthesia: MAC Surgeon: Ajit Young Pathology: none sent Condition: stable Disposition: PACU Description of Procedure: The patient's placed on the endoscopy table in the lateral position. She received IV sedation. Digital rectal exam was performed which revealed internal hemorrhoids. The flexible colonoscope was then placed patient anus passed throughout the entire colon. The ileocecal valve was visualized. Cecum, ascending and transverse colon appeared normal. The descending colon appeared normal. The patient a previous low anterior resection. The colorectal anastomosis visualized. This appeared normal. Scope back the remaining rectum and this was normal. Scope was brought to anus and internal hemorrhoids were noted.
[2021-12-23 10:32] VITALS: BP 118/66; PULSE 82; RESP 20
== END 2021-12-23 10:53 | disposition home or self-care (01) ==
LOC: ORWHC2ENDO 08:38
PROVIDERS: ATTEND Surgery
DX: Z12.11 Encounter for screening for malignant neoplasm of colon (principal); K64.8 Other hemorrhoids; Z85.038 Personal history of other malignant neoplasm of large intestine; Z98.0 Intestinal bypass and anastomosis status; J44.9 Chronic obstructive pulmonary disease, unspecified; E78.5 Hyperlipidemia, unspecified; I10 Essential (primary) hypertension; Z87.01 Personal history of pneumonia (recurrent); R01.1 Cardiac murmur, unspecified; Z90.710 Acquired absence of both cervix and uterus; Z98.890 Other specified postprocedural states; Z87.891 Personal history of nicotine dependence; Z80.9 Family history of malignant neoplasm, unspecified; Z82.49 Family history of ischemic heart disease and other diseases of the circulatory system; Z79.82 Long term (current) use of aspirin; Z79.899 Other long term (current) drug therapy
CPT/HCPCS: J2704; G0105; 45378

== ENCOUNTER 2024-12-24 20:31 | Inpatient (IN) | payer MEDICARE, BC ==
--- NOTE | 2024-12-24 21:11 | CT ---
EXAMINATION TYPE: CODE STROKE: CT brain wo contr DATE OF EXAM: 12/24/2024 9:01 PM COMPARISON: None. CLINICAL INDICATION: Female, 79 years old with history of Neuro deficit, acute, stroke suspected, dif ficulty speaking TECHNIQUE: Brain: Axial CT images of the brain were obtained with coronal and sagittal reformats created and rev iewed. Contrast used: None. Oral contrast used: None. CT DLP: 1100.1 mGycm, Automated exposure control for dose reduction was used. FINDINGS: Brain: Extra-axial spaces: No abnormal extra-axial fluid collections. Ventricular system: Within normal limits Cerebral parenchyma: No acute intraparenchymal hemorrhage or mass effect. The dos santos-white junction is well differentiated. Cerebellum: Unremarkable. Mass effect: No evidence of midline shift. Intracranial vasculature: Atherosclerotic calcifications of the intracranial vessels. Soft tissues: Normal. Calvarium/osseous structures: No depressed skull fracture. Paranasal sinuses and mastoid air cells: Moderate scattered paranasal sinus disease. Visualized orbits: Bilateral aphakia IMPRESSION: No acute intracranial process. Findings communicated to Ruy Bowling MD on 12/24/2024 9:[address] Juve Tomlinson. [facility], , 12/24/2024 9:08 PM
[2024-12-24 21:19] LABS: Glucose,Whole Blood 143 mg/dL (70-110)
--- NOTE | 2024-12-24 21:29 | CT ---
EXAMINATION TYPE: CT angio head neck DATE OF EXAM: 12/24/2024 9:19 PM COMPARISON: CT same day. CLINICAL INDICATION: Female, 79 years old with history of Neuro deficit, acute, stroke suspected; PHH , Aphasia. TECHNIQUE: Axially acquired helical CT angiogram of the head and neck was obtained with contrast. Axi al images are supplemented with 3D reconstructions and MIP images which were post-processed at an in dependent workstation. NASCET criteria used. Contrast used:65 ml mL of Isovue 370 with IV Contrast, Oral contrast used: None. CT DLP: 445.2 mGycm, Automated exposure control for dose reduction was used. FINDINGS: CTA HEAD: No evidence of acute intracranial hemorrhage, mass effect, or midline shift. The ventricles, sulci, a nd cisterns are unremarkable. Vertebral arteries: The vertebral arteries are patent. Vertebral artery dominance: Codominant Basilar artery: The basilar artery is intact. The basilar artery bifurcation is normal. Internal Carotid arteries: The cervical, petrous, cavernous and supraclinoid segments are normal. SANNA: Patent with no evidence of aneurysm. ACOM: Present without evidence of aneurysm. MCA: Patent with no evidence of aneurysm. SENIOR SYSTEMS SOFTWARE ENGINEER: Patent with no evidence of aneurysm. PCOM: Hypoplastic bilaterally. Dural sinuses: Patent. CTA NECK: Right Carotid System: The common carotid artery and external carotid artery are patent. The carotid bifurcation demonstrate s no evidence of hemodynamically significant stenosis. The remaining portions of the internal carotid artery demonstrate normal size without significant narrowing. Mild tortuosity to the internal caroti d artery. Left Carotid System: The common carotid artery and external carotid artery are patent. The carotid bifurcation demonstrate s no evidence of hemodynamically significant stenosis. The remaining portions of the internal carotid artery demonstrate normal size without significant narrowing. Mild tortuosity to the internal caroti d artery Vertebral arteries are patent without evidence hemodynamically significant stenosis. There is a three-vessel aortic arch. The origins of the great vessels are patent. No evidence of hemo dynamically significant stenosis. Upper thorax: IMPRESSION: 1. No evidence of dissection of the cervical internal carotid arteries or vertebral arteries. 2. No any evidence of significant stenosis at the carotid bifurcations. 3. No evidence of intracranial high-grade stenosis or intracranial aneurysm. [facility], , 12/24/2024 9:27 PM
[2024-12-24] MEDS: ASPIRIN 325 MG TAB PO STA (21:33)
[2024-12-24] MEDS: SODIUM CHLORIDE 0.9% 1,000 ML IV STA (21:33)
[2024-12-24 21:36] LABS: Basophils % (A) 1 %; Eosinophils # (A) 0.1 k/uL (0-0.7); Eosinophils % (A) 2 %; HCT 35.2 % (34.0-46.0); HGB 11.9 gm/dL (11.4-16.0); Lymphocytes # (A) 1.7 k/uL (1.0-4.8); Lymphocytes % (A) 37 %; MCH 31.4 pg (25.0-35.0); MCHC 33.7 g/dL (31.0-37.0); MCV 93.3 fL (80.0-100.0); Mean Platelet Volume 8.9; Monocytes # (A) 0.3 k/uL (0-1.0); Monocytes % (A) 6 %; Neutrophils # (A) 2.4 k/uL (1.3-7.7); Neutrophils % (A) 51 %; Platelet Count 168 k/uL (150-450); RBC 3.77 m/uL (3.80-5.40); RDW 12.3 % (11.5-15.5); WBC 4.7 k/uL (3.8-10.6)
[2024-12-24 21:45] LABS: ALT 15 U/L (4-34); AST 21 U/L (14-36); African American GFR (CKD) 62 (>60 ml/min/1.73 sqM); Albumin 3.2 g/dL (3.5-5.0); Alkaline Phosphatase 66 U/L (38-126); Anion Gap 6 mmol/L; Blood Urea Nitrogen 36 mg/dL (7-17); Calcium 8.7 mg/dL (8.4-10.2); Carbon Dioxide 25 mmol/L (22-30); Chloride 106 mmol/L (98-107); Creatine Kinase 90 U/L (30-135); Glucose 135 mg/dL (74-99); Non-African American GFR(CKD) 54 (>60 ml/min/1.73 sqM); Potassium 4.2 mmol/L (3.5-5.1); Sodium 137 mmol/L (137-145); Total Bilirubin 0.3 mg/dL (0.2-1.3); Total Protein 5.6 g/dL (6.3-8.2)
[2024-12-24 21:50] LABS: Prothrombin Time 10.7 sec (10.0-12.5)
--- NOTE | 2024-12-24 21:51 | XR ---
EXAMINATION TYPE: XR chest 2V DATE OF EXAM: 12/24/2024 9:44 PM COMPARISON: None CLINICAL INDICATION: Female, 79 years old with history of altered mental status TECHNIQUE: XR chest 2V Frontal and lateral views of the chest. FINDINGS: Lungs/Pleura: There is flattening of the diaphragm with increased lucency of the lungs. No evidence o f pneumothorax, pleural effusion or focal consolidation. Pulmonary vascularity: Unremarkable. Heart/mediastinum: Cardiomediastinal silhouette is unremarkable. Musculoskeletal: No acute osseous pathology. IMPRESSION: 1. No acute cardiopulmonary disease process. 2. COPD changes. [facility], , 12/24/2024 9:48 PM
[2024-12-24 21:54] LABS: Partial Thromboplastin Time 18.1 sec (22.0-30.0)
[2024-12-24 22:07] LABS: Influenza A Not Detected (Not Detectd); Influenza B Not Detected (Not Detectd); RSV Detected (Not Detectd)
[2024-12-24] MEDS ORDERED: IPRATROPIUM-ALBUTEROL 3 ML NEB INHALATION PRN (22:09)
[2024-12-24] MEDS: IPRATROPIUM-ALBUTEROL 3 ML NEB INHALATION STA (23:18)
[2024-12-24] MEDS: methylPREDNISolone SOD SUCCI 125 MG/2 ML VIAL IV STA (23:19)
--- NOTE | 2024-12-24 23:21 | ED ---
General Adult HPI - General Chief complaint: Neuro Symptoms/Deficit Stated complaint: Slurred speech Time Seen by Provider: 12/24/24 20:31 Source: patient, EMS, RN notes reviewed, old records reviewed Mode of arrival: EMS - History of Present Illness Initial comments: Patient is a 79-year-old female presents emergency department as a code stroke. Patient states she blew her nose an hour ago and noted that she was unable to speak normally. No history of stroke. Has a history of COPD, hyperlipidemia, hypertension. Currently being treated for pneumonia. Is not on blood thinners. No trauma to the head. States she did not really talk to anyone throughout the day today, but thinks she was singing to herself and it sounded normal sometime between 3 and 5 PM. Uncertain exact time of last known well. Presents for further evaluation at this time. - Related Data Home Medications Medication Instructions Recorded Confirmed Aspirin 81 mg PO DAILY 09/27/19 01/12/23 Atorvastatin [Lipitor] 10 mg PO HS 09/27/19 01/12/23 amLODIPine BESYLATE/BENAZEPRIL 1 cap PO QAM 09/27/19 01/12/23 [Lotrel 5-10 MG] Allergies Allergy/AdvReac Type Severity Reaction Status Date / Time No Known Allergies Allergy Verified 01/12/23 08:24 Review of Systems ROS Statement: Those systems with pertinent positive or pertinent negative responses have been documented in the HPI. Review of Systems: CONST: Denies fever EYES: Denies blurry vision ENT: Denies nasal congestion C/V: Denies Chest pain RESP: Denies shortness of breath GI: Denies abdominal pain : Denies dysuria SKIN: Denies rash. MSK: Denies joint pain. NEURO: Denies headache ROS Other: All systems not noted in ROS Statement are negative. Past Medical History Past Medical History: COPD, Hyperlipidemia, Hypertension, Pneumonia Additional Past Medical History / Comment(s): Colon CA dx 2019-no chemo or radiation, hx. heart murmur. BILATERAL CATARACT REMOVAL WITH LENS. History of Any Multi-Drug Resistant Organisms: None Reported Past Surgical History: Bowel Resection, Hysterectomy, Orthopedic Surgery Additional Past Surgical History / Comment(s): pina foot surg. Past Anesthesia/Blood Transfusion Reactions: No Reported Reaction Additional Past Anesthesia/Blood Transfusion Reaction / Comment(s): stated "had alot of coughing up mucus after last colonoscopy and had alot pain with anesthesia medication when injected into arm states did not have an IV with last colonoscopy." Past Psychological History: No Psychological Hx Reported Smoking Status: Former smoker Past Alcohol Use History: None Reported Past Drug Use History: None Reported - Past Family History Brother(s) Family Medical History: Cancer Mother Family Medical History: Deep Vein Thrombosis (DVT) General Exam - General Exam Comments Initial Comments: General: Appears in no acute distress. HEAD: Normal with no signs of head trauma. EYES: PERRLA, EOMI, conjunctiva normal, no discharge. Pupils are 3 mm and equal bilaterally. ENT: Hearing grossly intact, normal oropharynx. RESPIRATORY: Bilateral end expiratory wheezing no significant hypoxia on room air. C/V: Regular rate and rhythm. S1 and S2 auscultated, no edema, peripheral pulses 2+ and intact throughout ABD: Abd is soft, nontender, nondistended EXT: Normal range of motion, no obvious deformity SKIN: No rashes or lesions observed on exposed skin. NEURO: Alert and oriented x 4. NIH is 2 for 1 point for dysarthria and 1 point for aphasia. No other focal deficits. Course Vital Signs 12/24/24 20:45 Temperature 98.0 F Pulse Rate 90 Respiratory 18 Rate Blood Pressure 108/56 O2 Sat by Pulse 93 L Oximetry Medical Decision Making - Medical Decision Making Was pt. sent in by a medical professional or institution (TONIA Singh, CISTERN ROOM WORKING SUPERVISOR, urgent care, hospital, or snf...) When possible be specific @ -No Did you speak to anyone other than the patient for history (EMS, parent, family, police, friend...)? What history was obtained from this source @ -No Did you review nursing and triage notes (agree or disagree)? Why? @ -I reviewed and agree with nursing and triage notes Were old charts reviewed (outside hosp., previous admission, EMS record, old EKG, old radiological studies, urgent care reports/EKG's, snf records)? Report findings @ -Old charts reviewed and did not reveal patient being on blood thinners. Differential Diagnosis (chest pain, altered mental status, abdominal pain women, abdominal pain men, vaginal bleeding, weakness, fever, dyspnea, syncope, headache, dizziness, GI bleed, back pain, seizure, CVA, palpatations, mental health, musculoskeletal)? @ -Differential CVA Ischemic stroke, hemorrhagic stroke, brain tumor, atypical migraine, Wernicke's encephalopathy, seizure, multiple sclerosis, meningitis, encephalitis, hypoglycemia, Guillain-Vega, electrolytes disturbance, myasthenia gravis.... This is not meant to be an all-inclusive list EKG interpreted by me (3pts min.). @ -As above X-rays interpreted by me (1pt min.). @ -Chest x-ray reveals no obvious acute cardiopulmonary process. CT interpreted by me (1pt min.). @ -CT brain and CT angiogram head and neck negative for any obvious acute process or large vessel occlusion. U/S interpreted by me (1pt. min.). @ -None done What testing was considered but not performed or refused? (CT, X-rays, U/S, labs)? Why? @ -None What meds were considered but not given or refused? Why? @ -None Did you discuss the management of the patient with other professionals (professionals i.e. , PA, CISTERN ROOM WORKING SUPERVISOR, lab, RT, psych nurse, social economist, tentering machine feeder, teacher, traffic division commanding officer, case folder)? Give summary @ -Discussed with stroke physician on-call, Dr. Steele who is in agreement with the plan for workup. Was in agreement with medical management after discussing results of CT imaging. Discussed the case with the admitting provider, Dr. Rojas who accepted the admission. Was smoking cessation discussed for >3mins.? @ -No Was critical care preformed (if so, how long)? @ -Yes, 36 minutes. Were there social determinants of health that impacted care today? How? (Homelessness, low income, unemployed, alcoholism, drug addiction, transportation, low edu. Level, literacy, decrease access to med. care, longterm, rehab)? @ -No Was there de-escalation of care discussed even if they declined (Discuss DNR or withdrawal of care, Hospice)? DNR status @ -Discussed CODE STATUS with the patient and nursing staff also discussed CODE STATUS. Patient is DO NOT RESUSCITATE. Patient's daughter is in the room for discussion. What co-morbidities impacted this encounter? (DM, HTN, Smoking, COPD, CAD, Cancer, CVA, ARF, Chemo, Hep., AIDS, mental health diagnosis, sleep apnea, morbid obesity)? @ -None Was patient admitted / discharged? Hospital course, mention meds given and route, prescriptions, significant lab abnormalities, going to OR and other pertinent info. @ -Patient presents emergency department for code stroke activation. Unknown last known well time exactly. Was sometime this afternoon however could be greater than 4-1/2 hours. Patient's NIH is 2. Discussed with the patient and risk far outweigh the benefits of provide the patient with tPA at this time. She states that all of her symptoms started after she blew her nose, however she is not certain if she was also having the speaking issues earlier as she was not talking until later in the day on the phone with a friend. Therefore patient is not a tPA candidate for reasons above, including risk for outweigh benefits. We will activate the patient's code stroke. Also has a COPD exacerbation is being treated for pneumonia with antibiotics. Vital signs within acceptable limits. EKG shows no signs of acute ischemia. Imaging negative for any obvious acute stroke, large vessel occlusion. Laboratory studies returned remarkable for positive RSV. Discussed the case with stroke physician on-call, Dr. Steele who was in agr eement plan for medical management only. Agreed with decision not to administer tPA. On reevaluation, patient's symptoms have resolved. Diagnosis TIA. We will treat the COPD with IV steroids as well as breathing treatments. Patient did return RSV positive. She was updated. Discussed CODE STATUS and she would like to be made DNR. Patient will be admitted for neurology evaluation and for fur ther treatment of her COPD. I spoke with the admitting provider, Dr. Rojas who accepted the admission. Undiagnosed new problem with uncertain prognosis? @ -No Drug Therapy requiring intensive monitoring for toxicity (Heparin, Nitro, Insulin, Cardizem)? @ -No Were any procedures done? @ -No Diagnosis/symptom? @ -TIA, COPD, RSV Acute, or Chronic, or Acute on Chronic? @ -Acute Uncomplicated (without systemic symptoms) or Complicated (systemic symptoms)? @ -Complicated Side effects of treatment? @ -No Exacerbation, Progression, or Severe Exacerbation? @ -No Poses a threat to life or bodily function? How? (Chest pain, USA, CA, pneumonia, PE, COPD, DKA, ARF, appy, cholecystitis, CVA, Diverticulitis, Homicidal, Suicidal, threat to staff... and all critical care pts) @ -Yes - Lab Data Result diagrams: 12/24/24:19 12/24/24 21:19 Lab Results 12/24/24 12/24/24 12/24/24 Range/Units 21:17 21:19 21:19 WBC 4.7 (3.8-10.6) k/uL RBC 3.77 L (3.80-5.40) m/uL Hgb 11.9 (11.4-16.0) gm/dL Hct 35.2 (34.0-46.0) % MCV 93.3 (80.0-100.0) fL MCH 31.4 (25.0-35.0) pg MCHC 33.7 (31.0-37.0) g/dL RDW 12.3 (11.5-15.5) % Plt Count 168 (150-450) k/uL MPV 8.9 Neutrophils % 51 % Lymphocytes % 37 % Monocytes % 6 % Eosinophils % 2 % Basophils % 1 % Neutrophils # 2.4 (1.3-7.7) k/uL Lymphocytes # 1.7 (1.0-4.8) k/uL Monocytes # 0.3 (0-1.0) k/uL Eosinophils # 0.1 (0-0.7) k/uL Basophils # 0.0 (0-0.2) k/uL PT 10.7 (10.0-12.5) sec INR 1.0 (<1.2) APTT 18.1 L (22.0-30.0) sec Sodium (137-145) mmol/L Potassium (3.5-5.1) mmol/L Chloride (98-107) mmol/L Carbon Dioxide (22-30) mmol/L Anion Gap mmol/L BUN (7-17) mg/dL Creatinine (0.52-1.04) mg/dL Est GFR (CKD-EPI)AfAm (>60 ml/min/1.73 sqM) Est GFR (CKD-EPI)NonAf (>60 ml/min/1.73 sqM) Glucose (74-99) mg/dL POC Glucose (mg/dL) 143 H (70-110) mg/dL POC Glu Telephone Claims Representative ID [facility] Calcium (8.4-10.2) mg/dL Total Bilirubin (0.2-1.3) mg/dL AST (14-36) U/L ALT (4-34) U/L Alkaline Phosphatase (38-126) U/L Creatine Kinase (30-135) U/L Total Protein (6.3-8.2) g/dL Albumin (3.5-5.0) g/dL Influenza Type A (PCR) (Not Detectd) Influenza Type B (PCR) (Not Detectd) RSV (PCR) (Not Detectd) SARS-CoV-2 (PCR) (Not Detectd) 12/24/24 12/24/24 Range/Units 21:19 21:19 WBC (3.8-10.6) k/uL RBC (3.80-5.40) m/uL Hgb (11.4-16.0) gm/dL Hct (34.0-46.0) % MCV (80.0-100.0) fL MCH (25.0-35.0) pg MCHC (31.0-37.0) g/dL RDW (11.5-15.5) % Plt Count (150-450) k/uL MPV Neutrophils % % Lymphocytes % % Monocytes % % Eosinophils % % Basophils % % Neutrophils # (1.3-7.7) k/uL Lymphocytes # (1.0-4.8) k/uL Monocytes # (0-1.0) k/uL Eosinophils # (0-0.7) k/uL Basophils # (0-0.2) k/uL PT (10.0-12.5) sec INR (<1.2) APTT (22.0-30.0) sec Sodium 137 (137-145) mmol/L Potassium 4.2 (3.5-5.1) mmol/L Chloride 106 (98-107) mmol/L Carbon Dioxide 25 (22-30) mmol/L Anion Gap 6 mmol/L BUN 36 H (7-17) mg/dL Creatinine 1.01 (0.52-1.04) mg/dL Est GFR (CKD-EPI)AfAm 62 (>60 ml/min/1.73 sqM) Est GFR (CKD-EPI)NonAf 54 (>60 ml/min/1.73 sqM) Glucose 135 H (74-99) mg/dL POC Glucose (mg/dL) (70-110) mg/dL POC Glu Telephone Claims Representative ID Calcium 8.7 (8.4-10.2) mg/dL Total Bilirubin 0.3 (0.2-1.3) mg/dL AST 21 (14-36) U/L ALT 15 (4-34) U/L Alkaline Phosphatase 66 (38-126) U/L Creatine Kinase 90 (30-135) U/L Total Protein 5.6 L (6.3-8.2) g/dL Albumin 3.2 L (3.5-5.0) g/dL Influenza Type A (PCR) Not Detected (Not Detectd) Influenza Type B (PCR) Not Detected (Not Detectd) RSV (PCR) Detected A (Not Detectd) SARS-CoV-2 (PCR) Not Detected (Not Detectd) - EKG Data -: EKG Interpreted by Me EKG Comments: 12-lead Electrocardiogram Interpretation Note EKG was reviewed and interpreted by myself. 12-lead ECG performed at 100 is inte rpreted by me as revealing sinus tachycardia at a rate of 100 beats per minute. [place] is normal. RI interval is 138 ms, QRS durations 86 ms, QTc is 401 ms.. There were no ST or T wave abnormalities to suggest myocardial ischemia or injury. R wave progression across the precordium was satisfactory. By my interpretation this EKG is non-diagnostic for acute ischemia. Critical Care Time Critical Care Time: Yes Total Critical Care Time: 36 Disposition Clinical Impression: COPD (chronic obstructive pulmonary disease), TIA (transient ischemic attack), RSV infection Disposition: ADMITTED IP TO THIS HOSP Condition: Stable Is patient prescribed a controlled substance at d/c from ED?: No Time of Disposition: 22:23
[2024-12-24 23:56] LABS: Appearance,Urine Clear (Clear); Bilirubin,Urine Negative (Negative); Blood,Urine Small (Negative); Color,Urine Colorless; Glucose,Urine (UA) Negative (Negative); Ketones,Urine Negative (Negative); Leukocyte Esterase,Urine Negative (Negative); Nitrite,Urine Negative (Negative); Protein,Urine Negative (Negative); Urobilinogen,Urine <2.0 mg/dL (<2.0)
[2024-12-24 23:57] LABS: Mucus,Urine Rare /hpf; RBC,Urine 3 /hpf (0-5); Squamous Epithelial Cell,Urine <1 /hpf (0-4); WBC,Urine 1 /hpf (0-5)
[2024-12-25] MEDS ORDERED: IPRATROPIUM-ALBUTEROL 3 ML NEB INHALATION SCH
[2024-12-25] MEDS ORDERED: ACETAMINOPHEN TAB 325 MG TAB PO PRN (00:53)
[2024-12-25] MEDS: guaiFENesin-DM 600/30MG 1 EACH TAB.ER.12H PO PRN (02:22)
--- NOTE | 2024-12-25 05:56 | P.CNPUL ---
History of Present Illness Consult date: 12/25/24 Requesting physician: Ruy Bowling Reason for consult: COPD Chief complaint: Aphasia/dysphasia History of present illness: Patient is 79-year-old female with past medical history significant hypertension, hyperlipidemia, COPD, and tobacco smoker. Patient presented to the emergency department, at 8:30 PM, with a chief complaint of trouble speaking. Patient was on the phone with her friend sometime around 3 or 5 PM yesterday evening. States that she could not find words. EMS was called. Code stroke was activated. No other neurological deficits were noted. Workup in the emergency department including a brain CT which did not show any acute intracranial hemorrhage or mass effect. Brain CTA did not show any evidence of dissection of the cervical internal carotid arteries or vertebral arteries. No significant evidence of stenosis of the carotid bifurcations. No evidence of i ntracranial high-grade stenosis or intracranial aneurysm. While patient was undergoing preliminary imaging, her symptoms spontaneously resolved. Patient did not receive any thrombolytics. A secondary concern is some URI-like symptoms that developed last week. She was having rhinorrhea, congested cough, wheezing, and shortness of breath. Did go to her primary care provider, Dr. Rojas, who prescribed her antibiotics yesterday. Viral screen at our facility was positive for RSV. Chest x-ray done on arrival did not show any focal infiltrates or evidence of pneumonia. CBC unremarkable for leukocytosis, hemoglobin 11.9, platelets 168. CMP also unremarkable, electrolytes WDL, serum bicarb 25, creatinine 1.01, glucose 143. LFTs not elevated. Urinalysis unremarkable for infection. Patient currently being evaluated in the emergency department. Neurological exam is nonfocal. No dysarthria or dysphagia. She is on room air oxygen. No respiratory distress noted. Does have a congested nonproductive cough with expiratory wheezing heard bilaterally and throughout. She does report history of "mild COPD". Does smoke cigarettes, states 1 pack usually lasts her a month. Is reporting several days of increased shortness of breath, wheezing, rhinorrhea, congested cough. Subjective fevers. Eating and drinking okay. No nausea, vomiting, diarrhea. Current most recent vital signs: Temperature 98 F, heart rate 76 bpm, blood pressure 108/56 mmHg, SpO2 reading 93% on room air. Review of Systems Constitutional: Reports chills, Reports fatigue, Reports fever, Denies night sweats, Denies poor appetite, Denies weight gain, Denies weight loss Ears, nose, mouth and throat: Reports nasal congestion, Reports nasal discharge, Reports post-nasal drip, Reports sinus pressure, Denies sinus pain (Pressure is good), Denies sore throat ( weight to the lites come back at) Cardiovascular: Reports shortness of breath, Denies chest pain, Denies leg edema, Denies lightheadedness, Denies orthopnea, Denies palpitations Respiratory: Reports congestion, Reports cough, Reports dyspnea, Reports wheezing, Denies cough with sputum, Denies excessive sputum, Denies home oxygen Gastrointestinal: Denies abdominal pain, Denies diarrhea, Denies nausea, Denies vomiting Genitourinary: Denies dysuria Musculoskeletal: Denies arm numbness/tingling, Denies leg numbness/tingling, Denies limitation of motion Integumentary: Denies rash Neurological: Denies confusion, Denies headaches, Denies numbness, Denies paralysis, Denies paresthesias, Denies seizures, Denies syncope, Denies transient paralysis, Denies tremors, Denies weakness, Denies visual changes Psychiatric: Denies anxiety, Denies depression Past Medical History Past Medical History: COPD, Hyperlipidemia, Hypertension, Pneumonia Additional Past Medical History / Comment(s): Colon CA dx 2019-no chemo or radia tion, hx. heart murmur. BILATERAL CATARACT REMOVAL WITH LENS. History of Any Multi-Drug Resistant Organisms: None Reported Past Surgical History: Bowel Resection, Hysterectomy, Orthopedic Surgery Additional Past Surgical History / Comment(s): pina foot surg. Past Anesthesia/Blood Transfusion Reactions: No Reported Reaction Additional Past Anesthesia/Blood Transfusion Reaction / Comment(s): stated "had alot of coughing up mucus after last colonoscopy and had alot pain with anesthesia medication when injected into arm states did not have an IV with last colonoscopy." Past Psychological History: No Psychological Hx Reported Smoking Status: Former smoker Past Alcohol Use History: None Reported Past Drug Use History: None Reported - Past Family History Brother(s) Family Medical History: Cancer Mother Family Medical History: Deep Vein Thrombosis (DVT) Medications and Allergies Home Medications Medication Instructions Recorded Confirmed Type Aspirin 81 mg PO DAILY 09/27/19 12/25/24 History amLODIPine BESYLATE/BENAZEPRIL 1 cap PO DAILY 09/27/19 12/25/24 History [Lotrel 5-10 MG] Azithromycin [Zithromax Z Pack] See Taper PO DIRECTED 12/25/24 12/25/24 History Allergies Allergy/AdvReac Type Severity Reaction Status Date / Time No Known Allergies Allergy Verified 12/25/24 08:05 Physical Exam Vitals: Vital Signs Temp Pulse Resp BP Pulse Ox 12/24/24 23:33 76 20 12/24/24 23:18 80 20 12/24/24 20:45 98.0 F 90 18 108/56 93 L Intake and Output 12/24/24 12/24/24 12/25/24 14:59 22:59 06:59 Other: Weight 72.575 kg GENERAL EXAM: Alert, 79-year-old female, comfortable in no apparent distress. HEAD: Normocephalic and atraumatic EYES: Normal reaction of pupils, equal size. NOSE: Clear with pink turbinates. THROAT: No erythema or exudates. NECK: No masses, no JVD. CHEST: No chest wall deformity. LUNGS: Equal air entry with expiratory wheezing heard bilaterally throughout. On room air. No conversational dyspnea or accessory muscle use.. Congested cough. CVS: S1 and S2 normal with no audible murmur, regular rhythm. No extra heart sounds ABDOMEN: No hepatosplenomegaly, active bowel sounds, no guarding or rigidity. SPINE: No scoliosis or deformity SKIN: No rashes CENTRAL NERVOUS SYSTEM: Alert, cranial nerves II through XII intact, no focal deficits, tone is normal in all 4 extremities. EXTREMITIES: There is no peripheral edema, clubbing, or cyanosis. Peripheral pulses are intact. Results - Laboratory Findings CBC and BMP: 12/24/24 21:19 12/24/24 21:19 PT/INR, D-dimer PT 10.7 sec (10.0-12.5) 12/24/24 21: INR 1.0 (<1.2) 12/24/24 21:19 Abnormal lab findings: Abnormal Labs 12/24/24 12/24/24 12/24/24 21:17 21:19 21: RBC 3.77 L APTT 18.1 L BUN Glucose POC Glucose (mg/dL) 143 H Total Protein Albumin Ur Specific [place] Urine Blood Urine Mucus RSV (PCR) 12/24/24 12/24/24 12/24/24 21:19 21:19 23:45 RBC APTT BUN 36 H Glucose 135 H POC Glucose (mg/dL) Total Protein 5.6 L Albumin 3.2 L Ur Specific [place] 1.050 H Urine Blood Small H Urine Mucus Rare H RSV (PCR) Detected A - Diagnostic Findings Chest x-ray: image reviewed Assessment and Plan Assessment: Expressive dysphasia, symptoms spontaneously resolved, possible TIA Acute RSV bronchitis Acute COPD exacerbation, secondary to above Acute dyspnea Hypertension History of hyperlipidemia Tobacco smoker, reportedly 1 pack of cigarettes will last her 1 month Plan: Currently on room air oxygen Chest x-ray does not show any focal infiltrates or evidence of pneumonia Continue supportive care for RSV bronchitis As needed bronchodilators Continue IV steroids, transition to oral taper on discharge Robitussin DM as needed for antitussive Acetaminophen for pain/fever Oral intake is adequate Neurology to see patient for neurological symptoms Continue neurochecks per protocol Continue aspirin and high intensity statin We will continue to follow I have personally seen and examined the patient, performed the documentation and the assessment and plan as written. Number of minutes spent on the visit:20 This is a joint evaluation that was done along with the nurse practitioner. This evaluation was done and 32 minutes. The patient was seen and examined. The patient was seen in Emergency Department along with the nurse practitioner. The patient is doing well for now. No neurological deficits. No aphasia. No motor weakness in upper or lower extremities. No vision changes. CT of the brain was negative. Carotid Dopplers were negative. Cardiac rhythm is sinus. Diagnosed having an acute RSV tracheobronchitis with secondary COPD exacerbation. Will subjected patient to bronchodilators and steroids. Monitor fever pattern. Treatment will be essentially symptomatic. Consult neurology and will continue to follow. Smoking cessation counseling was done. Time with Patient: Greater than 30
[2024-12-25] MEDS: IPRATROPIUM-ALBUTEROL 3 ML NEB INHALATION SCH (07:28)
--- NOTE | 2024-12-25 08:25 | P.HPIM ---
History of Present Illness H&P Date: 12/25/24 Chief Complaint: Slurred speech shortness of breath The patient is here after having TIA type symptoms. Significant slurred speech which has resolved after observation in the ER. The patient saw me several days ago for lower respiratory congestion. We started on empiric Zithromax. Chest x-ray is nominal at this time. Numbness or voiding symptoms. She is now speaking at baseline and seems cognitively appropriate Review of Systems Constitutional: Denies chills, Denies fever Eyes: denies blurred vision, denies pain Ears, nose, mouth and throat: Denies headache, Denies sore throat Cardiovascular: Denies chest pain, Denies shortness of breath Respiratory: Denies cough Past Medical History Past Medical History: COPD, Hyperlipidemia, Hypertension, Pneumonia Additional Past Medical History / Comment(s): Colon CA dx 2019-no chemo or radiation, hx. heart murmur. BILATERAL CATARACT REMOVAL WITH LENS. History of Any Multi-Drug Resistant Organisms: None Reported Past Surgical History: Bowel Resection, Hysterectomy, Orthopedic Surgery Additional Past Surgical History / Comment(s): pina foot surg. Past Anesthesia/Blood Transfusion Reactions: No Reported Reaction Additional Past Anesthesia/Blood Transfusion Reaction / Comment(s): stated "had alot of coughing up mucus after last colonoscopy and had alot pain with anesthesia medication when injected into arm states did not have an IV with last colonoscopy." Past Psychological History: No Psychological Hx Reported Smoking Status: Former smoker Past Alcohol Use History: None Reported Past Drug Use History: None Reported - Past Family History Brother(s) Family Medical History: Cancer Mother Family Medical History: Deep Vein Thrombosis (DVT) Medications and Allergies Home Medications Medication Instructions Recorded Confirmed Type Aspirin 81 mg PO DAILY 09/27/19 12/25/24 History amLODIPine BESYLATE/BENAZEPRIL 1 cap PO DAILY 09/27/19 12/25/24 History [Lotrel 5-10 MG] Azithromycin [Zithromax Z Pack] See Taper PO DIRECTED 12/25/24 12/25/24 History Allergies Allergy/AdvReac Type Severity Reaction Status Date / Time No Known Allergies Allergy Verified 12/25/24 08:05 Physical Exam Vitals: Vital Signs Temp Pulse Resp BP Pulse Ox 12/25/24 07:55 96 12/25/24 07:37 74 12/25/24 06:21 78 18 113/60 92 L 12/25/24 02:20 92 18 115/58 95 12/25/24 01:06 88 18 130/68 96 12/24/24 23:33 76 20 12/24/24 23:18 80 20 12/24/24 20:45 98.0 F 90 18 108/56 93 L Intake and Output 12/24/24 12/25/24 12/25/24 22:59 06:59 14:59 Other: Weight 72.575 kg - Constitutional General appearance: cooperative, no acute distress - EENT Eyes: EOMI - Neck Neck: no lymphadenopathy - Respiratory Respiratory: bilateral: CTA - Cardiovascular Rhythm: regular Heart sounds: normal: S1, S2 Abnormal Heart Sounds: no S3 Gallop - Gastrointestinal General gastrointestinal: soft, no tenderness - Psychiatric Psychiatric: A&O x's 3, appropriate affect Results CBC & Chem 7: 12/24/24 21:19 12/24/24 21:19 Labs: Abnormal Lab Results - Last 24 Hours (Table) 12/24/24 12/24/24 12/24/24 Range/Units 21:17 21:19 21:19 RBC 3.77 L (3.80-5.40) m/uL APTT 18.1 L (22.0-30.0) sec BUN (7-17) mg/dL Glucose (74-99) mg/dL POC Glucose (mg/dL) 143 H (70-110) mg/dL Total Protein (6.3-8.2) g/dL Albumin (3.5-5.0) g/dL Ur Specific [place] (1.001-1.035) Urine Blood (Negative) Urine Mucus (None) /hpf RSV (PCR) (Not Detectd) 12/24/24 12/24/24 12/24/24 Range/Units 21:19 21:19 23:45 RBC (3.80-5.40) m/uL APTT (22.0-30.0) sec BUN 36 H (7-17) mg/dL Glucose 135 H (74-99) mg/dL POC Glucose (mg/dL) (70-110) mg/dL Total Protein 5.6 L (6.3-8.2) g/dL Albumin 3.2 L (3.5-5.0) g/dL Ur Specific [place] 1.050 H (1.001-1.035) Urine Blood Small H (Negative) Urine Mucus Rare H (None) /hpf RSV (PCR) Detected A (Not Detectd) Assessment and Plan (1) COPD (chronic obstructive pulmonary disease) Current Visit: Yes Status: Acute Code(s): J44.9 - CHRONIC OBSTRUCTIVE PULMONARY DISEASE, UNSPECIFIED SNOMED Code(s): 84740701 (2) TIA (transient ischemic attack) Current Visit: Yes Status: Acute Code(s): G45.9 - TRANSIENT CEREBRAL ISCHEMIC ATTACK, UNSPECIFIED SNOMED Code(s): 719624016 (3) Hyperlipidemia Current Visit: No Status: Acute Code(s): E78.5 - HYPERLIPIDEMIA, UNSPECIFIED SNOMED Code(s): 17477856 (4) Hypertension Current Visit: No Status: Acute Code(s): I10 - ESSENTIAL (PRIMARY) HYPERTENSION SNOMED Code(s): 78057617 Plan: Multiple consultants are noted. Check echocardiogram with duplex carotid. Reconcile home medications. Follow blood pressure closely. She is otherwise a full code.
[2024-12-25] MEDS: lisinopriL 10 MG TAB PO SCH (08:29)
[2024-12-25] MEDS: amLODIPine 5 MG TAB PO SCH (08:29)
[2024-12-25] MEDS: ASPIRIN 325 MG TAB PO SCH (08:29)
[2024-12-25] MEDS: methylPREDNISolone SOD SUCCI 40 MG/ML 1 ML VIAL IV SCH (08:30)
[2024-12-25 08:42] LABS: LDL Cholesterol,Calculated 95.7 mg/dL (0.0-131.0)
--- NOTE | 2024-12-25 10:15 | US ---
EXAMINATION TYPE: US carotid duplex BILAT DATE OF EXAM: 12/25/2024 COMPARISON: CTA(12/24/2023) CLINICAL INDICATION: Female, 79 years old with history of TIA; Additional History: .... TECHNIQUE: Grayscale, color Doppler and spectral Doppler evaluation of the bilateral carotid systems and vertebral arteries. Indirect Doppler criteria was utilized. FINDINGS: EXAM MEASUREMENTS: RIGHT: Peak Systolic Velocity (PSV) cm/sec ----- Right CCA: 48.6 ----- Right ICA: 94.9 ----- Right ECA: 81.7 ICA/CCA ratio: 2.0 RIGHT: End Diastole cm/sec ----- Right CCA: 13.0 ----- Right ICA: 30.2 ----- Right ECA: 11.8 LEFT: Peak Systolic Velocity (PSV) cm/sec ----- Left CCA: 78.4 ----- Left ICA: 70.7 ----- Left ECA: 67.4 ICA/CCA ratio: 0.9 LEFT: End Diastole cm/sec ----- Left CCA: 19.0 ----- Left ICA: 21.6 ----- Left ECA: 9.9 VERTEBRALS (direction of flow): Right Vertebral: Antegrade Left Vertebral: Antegrade Rhythm: Normal [employer]ER M113 NOTES: Very limited exam due to vessel tortuosity No plaque, elevated velocities or significant stenosis seen bilaterally Color Doppler imaging shows patency with blood flow throughout the carotid artery. Spectral waveforms are within normal limits. IMPRESSION: 1. No suspicious significant flow-limiting stenosis bilateral carotid bifurcations. Criteria for Assigning % of Stenosis / Diameter reduction (Estimation based on the indirect measurements of the internal carotid artery velocities (ICA PSV). 1. Normal (no stenosis)=ICA PSV < 125 cm/s: ratio < 2.0: ICA EDV<40 cm/s. 2. Less than 50% stenosis=ICA PSV < 125 cm/s: ratio < 2.0: ICA EDV<40 cm/s. 3. 50 to 69% stenosis=ICA PSV of 125 to 230 cm/s: ration 2.0 ? 4.0: ICA EDV 40-100 cm/s. 4. Greater than 70% stenosis to near occlusion= ICA PSV > 230 cm/s: ratio > 4.0: ICA EDV > 100 cm/s. 5. Near occlusion= ICA PSV velocities may be low or undetectable: variable ratio and ICA EDV. 6. Total occlusion=unable to detect flow. [facility], , 12/25/2024 10:12 AM
[2024-12-25] MEDS: guaiFENesin-DM 100-10MG/5ML 10 ML CUP PO PRN (11:16)
[2024-12-25] MEDS: ATORVASTATIN 20 MG TAB PO SCH (20:54)
[2024-12-25] MEDS ORDERED: ATORVASTATIN 10 MG TAB PO SCH (21:00)
--- NOTE | 2024-12-26 07:18 | CA ---
Transthoracic Echo Report Name: Annelise Randolph Age: 79 Gender: F : 1945 Exam Date: 12/25/2024 15:29 Exam Location: [place] [facility] Ht (in): 66 Wt (lb): 160 Ordering Physician: Adan Rojas MD Attending/Referring Phys: Spanish Interpreter/Translator Susana Telles RDCS Procedure CPT: Indications: tia Cardiac Hx: Technical Quality: Technically difficult study Contrast 1: Definity Total Dose (mL): 3 Contrast 2: Total Dose (mL): MEASUREMENTS (Male / Female) Normal Values 2D ECHO LV Diastolic Diameter PLAX 4.1 cm 4.2 - 5.9 / 3.9 - 5.3 cm LV Systolic Diameter PLAX 2.7 cm IVS Diastolic Thickness 1.2 cm 0.6 - 1.0 / 0.6 - 0.9 cm LVPW Diastolic Thickness 1.0 cm 0.6 - 1.0 / 0.6 - 0.9 cm LV Relative Wall Thickness 0.5 LVOT Diameter 1.9 cm LA Volume 52.5 cm??? 18 - 58 / 22 - 52 cm??? LA Volume Index 28.4 cm???/m??? 16 - 28 cm???/m??? DOPPLER AV Peak Velocity 519.4 cm/s AV Peak Gradient 107.9 mmHg AV Mean Velocity 389.7 cm/s AV Mean Gradient 67.0 mmHg AV Velocity Time Integral 122.8 cm LVOT Peak Velocity 119.9 cm/s LVOT Peak Gradient 5.8 mmHg LVOT Velocity Time Integral 25.9 cm LVOT Stroke Volume 71.5 cm??? LVOT Stroke Volume Index 39.3 ml/m??? LVOT Cardiac Index 3167.1 cm???/min???m??? AV Area Cont Eq vti 0.6 cm??? AV Area Cont Eq pk 0.6 cm??? MV Peak Velocity 194.4 cm/s MV Peak Gradient 15.1 mmHg MV Mean Velocity 114.9 cm/s MV Mean Gradient 5.8 mmHg MV Velocity Time Integral 39.2 cm MV Area PHT 2.5 cm??? Mitral E Point Velocity 104.1 cm/s Mitral A Point Velocity 163.2 cm/s Mitral E to A Ratio 0.6 MV Deceleration Time 306.5 ms TR Peak Velocity 300.2 cm/s TR Peak Gradient 36.0 mmHg Right Atrial Pressure 5.0 mmHg Pulmonary Artery Systolic Pressu 41.0 mmHg Right Ventricular Systolic Press 41.0 mmHg PV Peak Velocity 99.0 cm/s PV Peak Gradient 3.9 mmHg FINDINGS Left Ventricle Left ventricular ejection fraction is estimated at 65 %. Mildly increased septal wall thickness. Mildly increased posterior wall thickness. Left ventricular cavity size normal. Hyperdynamic left ventricular systolic function. Mid cavitary gradient 42mmHg at rest. Possible apical pouch. Right Ventricle Normal right ventricular size and function. Mild pulmonary hypertension. Right Atrium Normal right atrial size. Left Atrium Normal left atrial size. Mitral Valve Mitral valve thickened. Mitral annular calcification. Possible mobile thrombus on posterior leaflet. Moderate mitral stenosis. Moderate mitral regurgitation, may be underestimated due to severe aortic stenosis, hyperdynamic left ventricular cavity, and poor doppler alignment. Aortic Valve Trileaflet aortic valve. Diffuse thickening of the aortic valve cusps with reduced excursion. Severe aortic stenosis, mean gradient 80mmHg, aortic valve Tricuspid Valve Structurally normal tricuspid valve. No tricuspid stenosis. Mild tricuspid regurgitation. Pulmonic Valve Structurally normal pulmonic valve. No pulmonic stenosis. Mild pulmonic regurgitation. Pericardium No pericardial effusion. Prominent epicardial fat. Aorta Normal size aortic root and proximal ascending aorta. CONCLUSIONS Hyperdynamic LV. Mild LVH. The ejection fraction is 60 to 65% and with mid cavity gradient Trileaflet aortic valve. Severe aortic sclerosis and critical aortic stenosis with mean gradient exceeding 80 mmHg and aortic valve area of 0.8 cm??? Extremely thickened mitral valve apparatus with moderate mitral stenosis. An echodensity was identified on the posterior mitral leaflet likely represent extensive calcification Mild pulmonary hypertension No pericardial effusion Previewed by: Dr. Pérez Estrada MD (Electronically Signed) Final Date: 26 December 2024 07:17
[2024-12-26] MEDS: ASPIRIN 81 MG PO SCH (08:29)
--- NOTE | 2024-12-26 08:38 | P.PN ---
Subjective Progress Note Date: 12/26/24 This is a 79-year-old female who presented to the emergency department with complaints of slurred speech. Patient had recently been seen in our office for lower respiratory congestion. Patient was positive for RSV on admission. She had a full workup for a TIA. Carotid was normal. Echo is showing mitral valve stenosis. Patient is seen sitting in bed this morning. Her vital signs are stable. Will ask cardiology to evaluate patient regarding mitral valve stenosis. Objective - Vital Signs Vital signs: Vital Signs Temp 97.3 F L 12/26/24 03:28 Pulse 92 12/26/24 03:28 Resp 18 12/26/24 03:28 BP 112/70 12/26/24 03:28 Pulse Ox 91 L 12/26/24 03:28 FiO2 Intake & Output 12/25/24 12/26/24 12/26/24 18:59 06:59 18:59 Output Total 0 Balance 0 Weight 75.5 kg Output: Urine 0 Other: Voiding Method Toilet # Voids 2 - Constitutional General appearance: Present: cooperative, no acute distress - EENT Eyes: Present: PERRLA - Neck Neck: Present: normal ROM. Absent: lymphadenopathy, rigidity - Respiratory Respiratory: bilateral: diminished - Cardiovascular Heart sounds: normal: S1, S2 - Gastrointestinal General gastrointestinal: Present: soft. Absent: tenderness - Integumentary Integumentary: Present: normal, normal turgor - Musculoskeletal Musculoskeletal Comment(s): speech clear Musculoskeletal: Present: strength equal bilaterally - Psychiatric Psychiatric: Present: A&O x's 3 - Labs CBC & Chem 7: 12/24/24 21:19 12/24/24 21:19 Labs: Abnormal Lab Results - Last 24 Hours (Table) 12/24/24 12/24/24 Range/Units 21:19 21:19 Hemoglobin A1c 6.2 H (<=6.0) % HDL Cholesterol 39.30 L (40.00-60.00) mg/dL Assessment and Plan (1) COPD (chronic obstructive pulmonary disease) Current Visit: Yes Status: Acute Code(s): J44.9 - CHRONIC OBSTRUCTIVE PULMONARY DISEASE, UNSPECIFIED SNOMED Code(s): 47945415 (2) RSV infection Current Visit: Yes Status: Acute Code(s): B33.8 - OTHER SPECIFIED VIRAL DISEASES SNOMED Code(s): 23201241 (3) TIA (transient ischemic attack) Current Visit: Yes Status: Acute Code(s): G45.9 - TRANSIENT CEREBRAL ISCHEMIC ATTACK, UNSPECIFIED SNOMED Code(s): 612444411 (4) Hyperlipidemia Current Visit: No Status: Acute Code(s): E78.5 - HYPERLIPIDEMIA, UNSPECIFIED SNOMED Code(s): 27502743 (5) Hypertension Current Visit: No Status: Acute Code(s): I10 - ESSENTIAL (PRIMARY) HYPERTENSION SNOMED Code(s): 94008596 (6) Mitral valve stenosis Current Visit: Yes Status: Acute Code(s): I05.0 - RHEUMATIC MITRAL STENOSIS SNOMED Code(s): 62391156 Plan: Will consult cardiology. Appreciate recommendations from multiple consultants. Patient seen and evaluated by nurse practitioner, physician in agreement with plan.
--- NOTE | 2024-12-26 08:55 | P.CNNES ---
History of Present Illness Consult date: 12/25/24 Requesting physician: Ruy Bowling Reason for Consult: TIA History of Present Illness: Patient is a 79-year-old right-handed female came to the hospital by ambulance yesterday at 8:31 PM for possible TIA. Patient states that her symptoms started yesterday at 7:30 AM when she had sudden onset of speech difficulty. She lost her speech, could not pronounce words. She was not disoriented, was fully aware of surroundings and knew all answers. They called ambulance and patient was brought to the hospital. When she arrived to the hospital she was able to put words together although she was still struggling. There were no other focal symptoms like facial droop, visual disturbance, any numbness tingling or focal weakness. Denies any headache, dizziness or gait difficulty. Patient's family called EMS. As per EMS flowsheet, when they arrived patient was complaining of sudden onset of speech changes. Patient was alert and orient x 4 with GCS of 15 having difficulty forming some words and speech in general is delayed. It takes the patient longer to form words in order to complete a sentence. Patient's blood glucose was 160 mg/dL. Patient denied any chest pain, dizziness headache abdominal pain or difficulty breathing. Pupils were equal. 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 Patient was last seen normal yesterday at approximately 3 PM. Patient reports the onset of her speech changes occurred at approximately 1915 shortly after blowing her nose. Patient has hypertension. She takes aspirin, amlodipine and recently taking Z-Kip for pneumonia. Patient states that she remembers singing normally with no speech deficits at approximately 5 PM today. Patient's vitals at the scene was blood pressure 140/84, pulse rate 102, respiration 18 saturation 98%. Blood sugar 160. Vital stable when she arrived to the ER. Blood test showed normal CBC, PT PTT, normal CMP, UA. Influenza negative RSV positive. Coronavirus PCR negative. Chest x-ray showed no acute cardiopulmonary disease. COPD changes. CT head showed no acute process. I personally reviewed CT head, agree with the findings. There is questionable small hypodensity in the left basal ganglia. EKG showed sinus tachycardia. Patient's NIH stroke scale was reported as 2 on arrival to the ER. ED staff discussed case with Dr. Steele, and patient was considered not a candidate for TNK. Patient states by 10:30 PM, all symptoms have gone. At present she is back to normal. Home medications include amlodipine, aspirin and Z-Kip. Patient used to take as pirin 81 mg daily. She had a nosebleed few months ago, and since then has been taking aspirin very irregularly off and on. She has missed aspirin in the last 3 to 4 days. Patient has history of hypertension for 11 years. She has smoked off >, and she used to smoke on for 20 years 1 pack every 2-1/2 days. No previous history of strokes or TIA. No history of alcoholism. Review of Systems All pertinent positive and negative review of systems mentioned in the HPI. Patient states that on Monday, she had some headache, temperature cough and felt it was sinus issue. Past Medical History Past Medical History: COPD, Hyperlipidemia, Hypertension, Pneumonia Additional Past Medical History / Comment(s): Colon CA dx 2019-no chemo or radiation, hx. heart murmur. BILATERAL CATARACT REMOVAL WITH LENS. History of Any Multi-Drug Resistant Organisms: None Reported Past Surgical History: Bowel Resection, Hysterectomy, Orthopedic Surgery Additional Past Surgical History / Comment(s): pina foot surg. Past Anesthesia/Blood Transfusion Reactions: No Reported Reaction Additional Past Anesthesia/Blood Transfusion Reaction / Comment(s): stated "had alot of coughing up mucus after last colonoscopy and had alot pain with anesthesia medication when injected into arm states did not have an IV with last colonoscopy." Past Psychological History: No Psychological Hx Reported Smoking Status: Former smoker Past Alcohol Use History: None Reported Past Drug Use History: None Reported - Past Family History Brother(s) Family Medical History: Cancer Mother Family Medical History: Deep Vein Thrombosis (DVT) Medications and Allergies Home Medications Medication Instructions Recorded Confirmed Type Aspirin 81 mg PO DAILY 09/27/19 12/25/24 History amLODIPine BESYLATE/BENAZEPRIL 1 cap PO DAILY 09/27/19 12/25/24 History [Lotrel 5-10 MG] Azithromycin [Zithromax Z Pack] See Taper PO DIRECTED 12/25/24 12/25/24 History Allergies Allergy/AdvReac Type Severity Reaction Status Date / Time No Known Allergies Allergy Verified 12/25/24 08:05 Physical Examination - Vital Signs Vital Signs: Vital Signs Temp Pulse Resp BP Pulse Ox 12/25/24 18:53 93 20 110/81 95 12/25/24 15:27 98.0 F 95 20 106/68 96 12/25/24 12:27 101 H 20 115/67 94 L 12/25/24 11:58 93 12/25/24 11:49 93 L 12/25/24 11:46 90 12/25/24 11:05 114 H 22 148/72 92 L 12/25/24 10:00 92 18 117/66 96 12/25/24 09:00 98 18 123/67 98 12/25/24 08:28 97.3 F L 95 18 131/95 92 L 12/25/24 07:55 96 12/25/24 07:37 74 12/25/24 06:21 78 18 113/60 92 L 12/25/24 02:20 92 18 115/58 95 12/25/24 01:06 88 18 130/68 96 12/24/24 23:33 76 20 12/24/24 23:18 80 20 12/24/24 20:45 98.0 F 90 18 108/56 93 L Patient is an elderly female, very pleasant, in no acute distress. Patient is alert awake oriented to time place and person. Speech and language functions are normal. Patient can name and repeat very well. No aphasia or dysarthria. Attention, concentration and fund of knowledge is adequate. On cranial nerve examination, pupils are equal, round and reacting to light, visual welch are full on confrontation, with no neglect on double simultaneous stimulation. Extraocular muscles are intact with no nystagmus. Face is symmetric, tongue protrudes to the midline. Palatal elevation and sensation normal, hearing and shoulder shrug normal, facial sensation normal. On muscle strength testing, there is no pronator drift and the strength is normal in arms and legs distally and proximally. Deep tendon reflexes are symmetric to all over and plantars downgoing. Sensory to touch is equal with no neglect on double simultaneous stimulation. Cerebellar function showed no ataxia for [id number] testing. No dysdiadochokinesia. No ataxia for [id number] testing on either side. Tone and bulk of muscles normal. Gait deferred.. On general examination, there is no carotid bruit or murmur, S1-S2 audible. Chest is clear on consultation. Abdomen is soft nontender. No organomegaly, bowel sounds present. Peripheral pulses are present. No peripheral edema. Results - Laboratory Findings CBC and BMP: 12/24/24 21:19 12/24/24 21:19 Abnormal Lab Findings: Abnormal Labs 12/24/24 12/24/24 12/24/24 21:17 21:19 21:19 RBC 3.77 L APTT 18.1 L BUN Glucose POC Glucose (mg/dL) 143 H Total Protein Albumin HDL Cholesterol Ur Specific [place] Urine Blood Urine Mucus RSV (PCR) 12/24/24 12/24/24 12/24/24 21:19 21:19 21:19 RBC APTT BUN 36 H Glucose 135 H POC Glucose (mg/dL) Total Protein 5.6 L Albumin 3.2 L HDL Cholesterol 39.30 L Ur Specific [place] Urine Blood Urine Mucus RSV (PCR) Detected A 12/24/24 23:45 RBC APTT BUN Glucose POC Glucose (mg/dL) Total Protein Albumin HDL Cholesterol Ur Specific [place] 1.050 H Urine Blood Small H Urine Mucus Rare H RSV (PCR) Assessment and Plan Assessment: * TIA, manifesting with expressive aphasia, that resolved within 2 to 3 hours. * Hypertension * Hyperlipidemia * History of nosebleed * Ex tobacco use Plan: * Patient had a TIA. All symptoms have resolved. Current NIH stroke scale is 0. Patient's ABCD2 score was 4, which is a moderate risk. * 2-D echo with bubble study to rule out PFO, still pending * CTA head and neck showed: No evidence of dissection of the cervical internal carotid arteries or vertebral arteries. No evidence of significant stenosis at the carotid bifurcations. No evidence of intracranial high-grade stenosis or intracranial aneurysm. * Carotid Doppler showed no suspicious significant flow-limiting stenosis bilateral carotid bifurcations. Antegrade flow in both vertebral arteries. * Fasting a.m. lipid panel cholesterol 161, LDL 95, HDL 39, triglycerides 130. Patient was not taking any statins. We will start Lipitor 20 mg daily to target LDL <70. * Check Hemoglobin A1c * Patient's blood pressure is well-controlled. Continue lisinopril 10 mg daily. * Patient used to take aspirin 81 mg daily. Few months ago, she had a nosebleed, therefore she has been taking aspirin very irregularly. I recommended patient to undergo dual antiplatelet therapy for 21 days and then stop Plavix and continue aspirin 81 mg indefinitely. Patient declined Plavix, because her mother had severe bleeding from it. We discussed about increasing dose of aspirin to 325 mg at least for 4 weeks, but she was concerned about nosebleed. After discussion, we agreed to increase aspirin to 162 mg daily at least for 4 weeks. Then may decrease to 81 mg daily and continue regularly. * Neuro checks every 4 hours * Telemetry monitoring rule out any arrhythmia * All symptoms have resolved. No need for PT OT. * DVT prophylaxis: Patient low risk. Patient is ambulatory. * Neurology will continue to follow. Thank you for the consult.
[2024-12-26] MEDS ORDERED: fentaNYL (PF) 50 MCG/ML 5 ML AMP IVP PRN (10:03)
[2024-12-26] MEDS ORDERED: MIDAZOLAM 2 MG/2 ML VIAL IV PRN (10:03)
[2024-12-26] MEDS ORDERED: BENZOCAINE SPRAY 1 CAN TOPICAL PRN (10:03)
--- NOTE | 2024-12-26 11:18 | P.CRDCN ---
History of Present Illness History of present illness: HISTORY OF PRESENT ILLNESS: This is a 79-year-old female with a past medical history significant for hypertension, COPD, and former nicotine dependence. Patient does not follow with a manager perioperative. We have been asked to see the patient in consultation for mitral valve stenosis. Patient examined at the bedside. Patient states over the past few days she has been coughing a lot. She states that she was at home when she went to call a friend and she was unable to get the correct words out. She presented to the hospital for further evaluation. Patient's altered speech has since resolved. Patient currently denies any chest pain or pressure. She denies any shortness of breath. She does report some mild chest discomfort after she has a significant coughing fit. She does report she has been having shortness of breath with exertion at baseline for the past couple months. She stopped smoking approximately 1 month ago. She does not see a lung doctor. She denies any history of seizure or stroke. The patient was also found to be positive for RSV. The patient does report a history of a heart murmur since age of 18. She states that she has never had an echocardiogram previously performed. DIAGNOSTICS: - EKG reveals sinus tachycardia with no signs of acute ischemia. - Chest xray negative for acute process. COPD changes.. -Carotid Doppler: No suspicious significant flow-limiting stenosis of bilateral carotid bifurcations - Laboratory data: WBC 4.7. Hemoglobin 11.9. Platelet count 160. Sodium 137. Potassium 4.2. BUN 36. Creatinine 1.01. LDL 95. - Current home cardiac medications include amlodipine-benazepril 5-10 mg daily and aspirin 81 mg daily. -Echocardiogram performed this admission reveals ejection fraction 65%, hyperdynamic left ventricular systolic function. Mid cavitary gradient 42 mmHg at rest. Possible apical pouch. Mild pulmonary hypertension. Possible mobile thrombus on posterior leaflet. Moderate mitral stenosis. Moderate mitral r egurgitation, may be underestimated due to severe aortic stenosis, hyperdynamic left ventricular cavity, and poor Doppler alignment. Severe aortic stenosis with mean gradient 80 mmHg. Mild tricuspid regurgitation. - Cardiac catheterization history: Patient denies REVIEW OF SYSTEMS: At the time of my exam: CONSTITUTIONAL: Denies fever or chills. HEENT: Denies blurred vision, vision changes, or eye pain. Denies hemoptysis CARDIOVASCULAR: Denies chest pain. Denies orthopnea. Denies PND. Denies palpitations RESPIRATORY: Denies shortness of breath. GASTROINTESTINAL: Denies abdominal pain. Denies nausea or vomiting. HEMATOLOGIC: Denies bleeding disorders. GENITOURINARY: Denies any blood in urine. SKIN: Denies pruitis. Denies rash. PHYSICAL EXAM: VITAL SIGNS: Reviewed. GENERAL: Well-developed in no acute distress. HEENT: Head is normocephalic. Pupils are equal, round. Sclerae anicteric. Mucous membranes of the mouth are moist. Neck supple. No JVD or thyromegaly LUNGS: Respirations even and unlabored. Lungs essentially clear to auscultation bilaterally. HEART: Regular rate and rhythm. 3/6 systolic murmur, late peaking, no s2 at the apex ABDOMEN: Soft. Nondistended. Nontender. EXTREMITIES: Normal range of motion. No clubbing or cyanosis. Peripheral pulses intact. No lower extremity edema NEUROLOGIC: Awake and alert. Oriented x 3. ASSESSMENT: Expressive aphasia, suspected TIA With a heart disease including severe aortic stenosis and moderate mitral regurgitation and moderate mitral stenosis Hypertension History of COPD Former nicotine dependence, patient quit smoking 1 month ago PLAN: 2D echo obtained and reviewed Increase atorvastatin to 40 mg at night N.p.o. at midnight Patient to undergo MACO tomorrow with Dr. Montoya. Patient will require eventual aortic valve replacement. Further recommendations pending patient course Nurse practitioner note has been reviewed by physician. Signing provider agrees with the documented findings, assessment, and plan of care documented by [employer] as a scribe. Past Medical History Past Medical History: COPD, Hyperlipidemia, Hypertension, Pneumonia Additional Past Medical History / Comment(s): Colon CA dx 2019-no chemo or radiation, hx. heart murmur. BILATERAL CATARACT REMOVAL WITH LENS. History of Any Multi-Drug Resistant Organisms: None Reported Past Surgical History: Bowel Resection, Hysterectomy, Orthopedic Surgery Additional Past Surgical History / Comment(s): pina foot surg. Past Anesthesia/Blood Transfusion Reactions: No Reported Reaction Additional Past Anesthesia/Blood Transfusion Reaction / Comment(s): stated "had alot of coughing up mucus after last colonoscopy and had alot pain with anesthesia medication when injected into arm states did not have an IV with last colonoscopy." Past Psychological History: No Psychological Hx Reported Smoking Status: Former smoker Past Alcohol Use History: None Reported Past Drug Use History: None Reported - Past Family History Brother(s) Family Medical History: Cancer Mother Family Medical History: Deep Vein Thrombosis (DVT) Medications and Allergies Home Medications Medication Instructions Recorded Confirmed Type Aspirin 81 mg PO DAILY 09/27/19 12/25/24 History amLODIPine BESYLATE/BENAZEPRIL 1 cap PO DAILY 09/27/19 12/25/24 History [Lotrel 5-10 MG] Azithromycin [Zithromax Z Pack] See Taper PO DIRECTED 12/25/24 12/25/24 History Allergies Allergy/AdvReac Type Severity Reaction Status Date / Time No Known Allergies Allergy Verified 12/25/24 08:05 Physical Exam Vitals: Vital Signs Temp Pulse Pulse Resp BP BP Pulse Ox 12/26/24 08:00 98.4 F 94 20 129/75 94 L 12/26/24 03:28 97.3 F L 92 18 112/70 91 L 12/26/24 01:36 99 18 12/25/24 22:58 99 18 12/25/24 22:23 98.0 F 99 18 115/65 94 L 12/25/24 21:12 95 18 122/68 99 12/25/24 20:00 87 18 12/25/24 19:53 98 18 12/25/24 18:53 93 20 110/81 95 12/25/24 15:27 98.0 F 95 20 106/68 96 12/25/24 12:27 101 H 20 115/67 94 L 12/25/24 11:58 93 12/25/24 11:49 93 L 12/25/24 11:46 90 12/25/24 11:05 114 H 22 148/72 92 L 12/25/24 10:00 92 18 117/66 96 Intake and Output 12/25/24 12/26/24 12/26/24 22:59 06:59 14:59 Output Total 0 Balance 0 Output: Urine 0 Other: Voiding Method Toilet Toilet # Voids 2 Weight 72.575 kg 75.5 kg Results 12/24/24 21:19 12/24/24 21:19 Current Medications Generic Name Dose Route Start Last Admin Trade Name Freq PRN Reason Stop Dose Admin Acetaminophen 650 mg 12/25/24 00:53 Acetaminophen Tab 325 Mg Tab PO Q6HR PRN Fever and/ or Pain Albuterol/Ipratropium 3 ml 12/24/24 22:09 Ipratropium-Albuterol 3 Ml Neb INHALATION RT-Q4H PRN Shortness Of Breath Or Wheezing Albuterol/Ipratropium 3 ml 12/25/24 08:00 12/26/24 06:13 Ipratropium-Albuterol 3 Ml Neb INHALATION Not Given RT-QID WESLEY Amlodipine Besylate 5 mg 12/25/24 09:00 12/26/24 08:29 Amlodipine 5 Mg Tab PO 5 mg QAM WESLEY Administration Aspirin 162 mg 12/26/24 09:00 12/26/24 08:29 Aspirin 81 Mg PO 162 mg DAILY WESLEY Administration Atorvastatin Calcium 20 mg 12/25/24 21:00 12/25/24 20:54 Atorvastatin 20 Mg Tab PO 20 mg HS WESLEY Administration Guaifenesin/Dextromethorphan 10 ml 12/25/24 05:53 12/25/24 17:54 Guaifenesin-Dm 100-10mg/5ml 10 Ml Cup PO 10 ml Q6HR PRN Administration Cough Lisinopril 10 mg 12/25/24 09:00 12/26/24 08:29 Lisinopril 10 Mg Tab PO 10 mg QAM WESLEY Administration Methylprednisolone Sodium Succinate 40 mg 12/25/24 09:00 12/26/24 08:29 Methylprednisolone Sod Succi 40 Mg/Ml 1 Ml Vial IV 40 mg Q12HR WESLEY Administration Intake and Output 12/25/24 12/26/24 12/26/24 22:59 06:59 14:59 Output Total 0 Balance 0 Output: Urine 0 Other: Voiding Method Toilet Toilet # Voids 2 Weight 72.575 kg 75.5 kg 12/24/24 21:19 12/24/24 21:19
--- NOTE | 2024-12-26 13:17 | P.PN ---
Subjective Progress Note Date: 12/26/24 Patient was seen for a follow-up. Patient is sitting on the recliner. No new focal symptoms. Objective - Vital Signs Vital signs: Vital Signs Temp 97.9 F 12/26/24 11:19 Pulse 85 12/26/24 11:19 Resp 20 12/26/24 11:19 BP 118/75 12/26/24 11:19 Pulse Ox 98 12/26/24 11:19 FiO2 Intake & Output 12/25/24 12/26/24 12/26/24 18:59 06:59 18:59 Output Total 0 Balance 0 Weight 75.5 kg Output: Urine 0 Other: Voiding Method Toilet # Voids 2 - Exam Completely nonfocal. - Labs CBC & Chem 7: 12/24/24 21:19 12/24/24 21:19 Labs: Abnormal Lab Results - Last 24 Hours (Table) 12/24/24 Range/Units 21:19 Hemoglobin A1c 6.2 H (<=6.0) % Assessment and Plan Assessment: * TIA, manifesting with expressive aphasia, that resolved within 2 to 3 hours. Likely cardioembolic due to the reasons mentioned below. * Aortic stenosis, severe * Mitral stenosis, moderate, * Mitral regurgitation, moderate * Hypertension * Hyperlipidemia * History of nosebleed * Ex tobacco use Plan: * Patient had a TIA. All symptoms have resolved. Current NIH stroke scale is 0. Patient's ABCD2 score was 4, which is a moderate risk. * 2D echo revealed hyperdynamic LV, mild LVH and EF is 60 to 65%. Severe aortic sclerosis and critical aortic stenosis with mean gradient exceeding 80 mmHg and aortic valve area of 0.8 cm. Extremely thickened mitral valve apparatus with moderate mitral stenosis. An echodensity was identified on the posterior mitral leaflet likely represent extensive calcification. Mild pulmonary hypertension. * Cardiology has seen the patient for severe aortic stenosis and moderate MR and moderate MS. Patient to undergo MACO in the morning. * CTA head and neck showed: No evidence of dissection of the cervical internal carotid arteries or vertebral arteries. No evidence of significant stenosis at the carotid bifurcations. No evidence of intracranial high-grade stenosis or intracranial aneurysm. * Carotid Doppler showed no suspicious significant flow-limiting stenosis bilateral carotid bifurcations. Antegrade flow in both vertebral arteries. * Fasting a.m. lipid panel cholesterol 161, LDL 95, HDL 39, triglycerides 130. Patient was not taking any statins. We will start Lipitor 20 mg daily to target LDL <70. * Hemoglobin A1c 6.2 * Patient's blood pressure is well-controlled. Continue lisinopril 10 mg daily. * Patient used to take aspirin 81 mg daily. Few months ago, she had a nosebleed, therefore she has been taking aspirin very irregularly. I recommended patient to undergo dual antiplatelet therapy for 21 days and then stop Plavix and continue aspirin 81 mg indefinitely. Patient declined Plavix, because her mother had severe bleeding from it. We discussed about increasing dose of aspirin to 325 mg at least for 4 weeks, but she was concerned about nosebleed. After discussion, we agreed to increase aspirin to 162 mg daily at least for 4 weeks. Then may decrease to 81 mg daily and continue regularly. * Neuro checks every 4 hours * Telemetry monitoring rule out any arrhythmia * DVT prophylaxis: Patient low risk. Patient is ambulatory.
--- NOTE | 2024-12-26 18:23 | P.PN ---
Subjective Progress Note Date: 12/26/24 Patient is 79-year-old female with past medical history significant hypertensio n, hyperlipidemia, COPD, and tobacco smoker. Patient presented to the emergency department, at 8:30 PM, with a chief complaint of trouble speaking. Patient was on the phone with her friend sometime around 3 or 5 PM yesterday evening. States that she could not find words. EMS was called. Code stroke was activated. No other neurological deficits were noted. Workup in the emergency department including a brain CT which did not show any acute intracranial hemorrhage or mass effect. Brain CTA did not show any evidence of dissection of the cervical internal carotid arteries or vertebral arteries. No significant evidence of stenosis of the carotid bifurcations. No evidence of intracranial high-grade stenosis or intracranial aneurysm. While patient was undergoing preliminary imaging, her symptoms spontaneously resolved. Patient did not receive any thrombolytics. A secondary concern is some URI-like symptoms that developed last week. She was having rhinorrhea, congested cough, wheezing, and shortness of breath. Did go to her primary care provider, Dr. Rojas, who prescribed her antibiotics yesterday. Viral screen at our facility was positive for RSV. Chest x-ray done on arrival did not show any focal infiltrates or evidence of pneumonia. CBC unremarkable for leukocytosis, hemoglobin 11.9, platelets 168. CMP also unremarkable, electrolytes WDL, serum bicarb 25, creatinine 1.01, glucose 143. LFTs not elevated. Urinalysis unremarkable for infection. Patient currently being evaluated in the emergency department. Neurological exam is nonfocal. No dysarthria or dysphagia. She is on room air oxygen. No respiratory distress noted. Does have a congested nonproductive cough with expiratory wheezing heard bilaterally and throughout. She does report history of "mild COPD". Does smoke cigarettes, states 1 pack usually lasts her a month. Is reporting several days of increased shortness of breath, wheezing, rhinorrhea, congested cough. Subjective fevers. Eating and drinking okay. No nausea, vomiting, diarrhea. Current most recent vital signs: Temperature 98 F, heart rate 76 bpm, blood pressure 108/56 mmHg, SpO2 reading 93% on room air. On today's evaluation of 12/26/2024, the patient continues to have cough and congestion. No significant shortness of breath. No chest pain. She has an acute COPD exacerbation with an acute RSV infection. No neurological symptoms for now. No aphasia. No focal neurological deficits. Meanwhile, an echocardiogram was done and the patient was found to have significant valvular heart disease. The patient was found to have a preserved LV function with an ejection fraction of 65%. She had moderate mitral regurgitation and severe aortic stenosis with critical and a mean gradient across the aortic valve of 80 and the valve was estimated to be 0.8 cm. Based on that, the patient is scheduled to undergo a MACO tomorrow. Continues to be on bronchodilators. Continues to be on IV Solu-Medrol 40 mg every 12 hours. Blood pressure is stable. Pulse ox is 94% on room air oxygen. Objective - Vital Signs Vital signs: Vital Signs Temp 98.4 F 12/26/24 08:00 Pulse 94 12/26/24 08:00 Resp 20 12/26/24 08:00 BP 129/75 12/26/24 08:00 Pulse Ox 94 L 12/26/24 08:00 FiO2 Intake & Output 12/25/24 12/26/24 12/26/24 18:59 06:59 18:59 Output Total 0 Balance 0 Weight 75.5 kg Output: Urine 0 Other: Voiding Method Toilet # Voids 2 - Exam GENERAL EXAM: Alert, 79-year-old female, comfortable in no apparent distress. HEAD: Normocephalic and atraumatic EYES: Normal reaction of pupils, equal size. NOSE: Clear with pink turbinates. THROAT: No erythema or exudates. NECK: No masses, no JVD. CHEST: No chest wall deformity. LUNGS: Equal air entry with expiratory wheezing heard bilaterally throughout. On room air. No conversational dyspnea or accessory muscle use.. Congested cough. CVS: S1 and S2 normal with a systolic ejection murmur over the apex,, regular rhythm. No extra heart sounds ABDOMEN: No hepatosplenomegaly, active bowel sounds, no guarding or rigidity. SPINE: No scoliosis or deformity SKIN: No rashes CENTRAL NERVOUS SYSTEM: Alert, cranial nerves II through XII intact, no focal deficits, tone is normal in all 4 extremities. EXTREMITIES: There is no peripheral edema, clubbing, or cyanosis. Peripheral pulses are intact. - Labs CBC & Chem 7: 12/24/24 21:19 12/24/24 21:19 Labs: Abnormal Lab Results - Last 24 Hours (Table) 02/18/25 Range/Units 21:19 Hemoglobin A1c 6.2 H (<=6.0) % Assessment and Plan Assessment: Acute exacerbation of COPD secondary to RSV tracheobronchitis TIA, clinically suspected, recovered. Neurowork-up has been negative Valvular heart disease with critical aortic stenosis with a valve area of 0.8 cm and moderate MR. Preserved LV function. Acute dyspnea, secondary to above. Hypertension History of hyperlipidemia Tobacco smoker, reportedly 1 pack of cigarettes will last her 1 month Plan: Patient currently on room air oxygen Continue supportive care for RSV bronchitis Continue bronchodilators Continue IV steroids, 40 mg of IV Solu-Medrol every 12 hours Robitussin DM as needed for antitussive Continue aspirin and high intensity statin MACO in a.m. Cardiology on the case Carotid Dopplers are negative We will continue to follow
[2024-12-26] MEDS: ATORVASTATIN 40 MG TAB PO SCH (20:31)
--- NOTE | 2024-12-27 08:20 | P.PN ---
Subjective Progress Note Date: 12/20/24 Principal diagnosis: TIA element. Patient was admitted for TIA and RSV bronchiolitis. The patient is no longer coughing. No fever or chills. Echocardiogram/TIA workup does show significant aortic valve issues. Cardiology was consulted and she most likely will need replacement. Objective - Vital Signs Vital signs: Vital Signs Temp 97.8 F 12/27/24 07:01 Pulse 79 12/27/24 07:01 Resp 18 12/27/24 07:01 BP 134/71 12/27/24 07:01 Pulse Ox 94 L 12/27/24 07:01 FiO2 Intake & Output 12/26/24 12/27/24 12/27/24 18:59 06:59 18:59 Intake Total 540 Balance 540 Weight 74.5 kg Intake: Oral 540 Other: Voiding Method Toilet # Voids 3 1 - Constitutional General appearance: Present: average body habitus - EENT Eyes: Absent: abnormal pupil - Neck Neck: Absent: lymphadenopathy - Respiratory Respiratory: bilateral: diminished - Cardiovascular Rhythm: regular Heart sounds: normal: S1, S2 Abnormal Heart Sounds: Present: systolic murmur - Gastrointestinal General gastrointestinal: Present: soft. Absent: tenderness - Integumentary Integumentary: Absent: cellulitis - Labs CBC & Chem 7: 12/24/24 21:19 12/24/24 21:19 Assessment and Plan (1) COPD (chronic obstructive pulmonary disease) Current Visit: Yes Status: Acute Code(s): J44.9 - CHRONIC OBSTRUCTIVE PULMONARY DISEASE, UNSPECIFIED SNOMED Code(s): 68058083 (2) TIA (transient ischemic attack) Current Visit: Yes Status: Acute Code(s): G45.9 - TRANSIENT CEREBRAL ISCHEMIC ATTACK, UNSPECIFIED SNOMED Code(s): 010972303 (3) Hyperlipidemia Current Visit: No Status: Acute Code(s): E78.5 - HYPERLIPIDEMIA, UNSPECIFIED SNOMED Code(s): 27414973 (4) Hypertension Current Visit: No Status: Acute Code(s): I10 - ESSENTIAL (PRIMARY) HYPERTENSION SNOMED Code(s): 58656599 Plan: Await MACO today. Appreciate multiple consultants input. Continue current regimen of treatment. Will continue to follow. [facility] is covering for the weekend.
[2024-12-27] MEDS: BENZOCAINE SPRAY 1 EACH MM ONE (09:04)
[2024-12-27] MEDS: SODIUM CHLORIDE 0.9% 500 ML 500 ML IV ONE (09:04)
[2024-12-27] MEDS: fentaNYL (PF) 50 MCG/ML 2 ML AMP IVP ONE (09:14)
[2024-12-27] MEDS: MIDAZOLAM 2 MG/2 ML VIAL IVP ONE (09:14)
--- NOTE | 2024-12-27 09:40 | P.PN ---
Subjective Progress Note Date: 12/27/24 PROGRESS NOTE The patient is a 79-year-old female who presented with symptoms of speech disturbance and TIA, she also tested positive for RSV. She had an echocardiogram that showed evidence of severe aortic stenosis and moderate mitral stenosis. The patient was told that she had a heart murmur since the age of 18 but cannot recall having having any recent cardiac testing. She continues to be dyspneic today, she denies any dizziness or palpitations. She denies any nausea. She continues to have a cough. She underwent a MACO that showed a preserved systolic function, a mean gradient across aortic valve of 40 mmHg with possible bicuspid aortic valve with mild mitral, aortic and tricuspid regurgit ation. Her mean gradient across the mitral valve was 3 mmHg with heavily calcified valve. Medications: Amlodipine 5 mg daily, atorvastatin 40 mg daily, aspirin once a day, Zestril 10 mg daily PHYSICAL EXAMINATION: Blood pressure 121/59 heart rate 70 LUNGS: Clear to auscultation HEART: Regular rate and rhythm, S1, single S2 with a systolic ejection murmur, 3/6 at the base, radiating to the apex, late peaking ABDOMEN: Soft, nontender, no organomegaly EXTREMETIES: No edema LAB: BUN 36, creatinine 1.01, hemoglobin 11.9 on the IMPRESSION: 1. TIA, resolved 2. Severe aortic stenosis with probable bicuspid aortic valve 3. RSV 4. Hypertension PLAN: 1. Continue present therapy 2. Increase physical activity 3. Evaluated as an outpatient for aortic valve replacement probably by TAVR 4. Depending on her progress further recommendations will be made Objective - Vital Signs Vital signs: Vital Signs Temp 97.8 F 12/27/24 07:01 Pulse 70 12/27/24 09:24 Resp 14 12/27/24 09:24 BP 121/59 12/27/24 09:24 Pulse Ox 96 12/27/24 09:24 FiO2 Intake & Output 12/26/24 12/27/24 12/27/24 18:59 06:59 18:59 Intake Total 540 Balance 540 Weight 74.5 kg Intake: Oral 540 Other: Voiding Method Toilet # Voids 3 1 - Labs CBC & Chem 7: 12/24/24 21:19 12/24/24 21:19
--- NOTE | 2024-12-27 09:43 | P.PCN ---
Date of Procedure: 12/27/24 Description of Procedure: Indication: Aortic stenosis Procedure Description: After explaining the procedure to the patient, it's risk and complications, blood pressure, heart rate and O2 saturation were monitored. The throat was sprayed with Cetacaine. Patient received 2 mg intravenous Versed, 50 mcg intra venous fentanyl. The probe was introduced into the esophagus without difficulty. Images were obtained. Following that, the probe was removed. There was no immediate complication. Findings: Left atrial size is mildly dilated, left atrial appendage is normal. Left ventricular size and systolic function are normal. The aortic valve is heavily calcified, probable bicuspid. The mitral valve is calcified with severe calcification of the posterior mitral valve leaflets with calcified chordae. Tricuspid valve appears to be normal. Descending thoracic aorta appears to be normal. No pericardial effusion was noted. Contrast bubble study revealed no shunting across the interatrial septum. Doppler: Pulse wave and color Doppler were obtained, and revealed mild mitral, aortic and tricuspid regurgitation. The mean gradient across aortic valve was 40 mmHg with a peak of 67 mmHg, the mean gradient across the mitral valve was 3 mmHg. There was no shunting by color Doppler study. Conclusion: 1. Mildly dilated left atrium with normal appearance of the left atrial appendage 2. Normal ventricular size and systolic function 3. Severe aortic stenosis with probable bicuspid aortic valve 4. Mild mitral stenosis with calcified leaflets 5. Mild mitral, tricuspid and aortic regurgitation Duration of sedation 15 minutes
--- NOTE | 2024-12-27 15:25 | P.PN ---
Subjective Progress Note Date: 12/27/24 Patient is 79-year-old female with past medical history significant hypertensio n, hyperlipidemia, COPD, and tobacco smoker. Patient presented to the emergency department, at 8:30 PM, with a chief complaint of trouble speaking. Patient was on the phone with her friend sometime around 3 or 5 PM yesterday evening. States that she could not find words. EMS was called. Code stroke was activated. No other neurological deficits were noted. Workup in the emergency department including a brain CT which did not show any acute intracranial hemorrhage or mass effect. Brain CTA did not show any evidence of dissection of the cervical internal carotid arteries or vertebral arteries. No significant evidence of stenosis of the carotid bifurcations. No evidence of intracranial high-grade stenosis or intracranial aneurysm. While patient was undergoing preliminary imaging, her symptoms spontaneously resolved. Patient did not receive any thrombolytics. A secondary concern is some URI-like symptoms that developed last week. She was having rhinorrhea, congested cough, wheezing, and shortness of breath. Did go to her primary care provider, Dr. Rojas, who prescribed her antibiotics yesterday. Viral screen at our facility was positive for RSV. Chest x-ray done on arrival did not show any focal infiltrates or evidence of pneumonia. CBC unremarkable for leukocytosis, hemoglobin 11.9, platelets 168. CMP also unremarkable, electrolytes WDL, serum bicarb 25, creatinine 1.01, glucose 143. LFTs not elevated. Urinalysis unremarkable for infection. Patient currently being evaluated in the emergency department. Neurological exam is nonfocal. No dysarthria or dysphagia. She is on room air oxygen. No respiratory distress noted. Does have a congested nonproductive cough with expiratory wheezing heard bilaterally and throughout. She does report history of "mild COPD". Does smoke cigarettes, states 1 pack usually lasts her a month. Is reporting several days of increased shortness of breath, wheezing, rhinorrhea, congested cough. Subjective fevers. Eating and drinking okay. No nausea, vomiting, diarrhea. Current most recent vital signs: Temperature 98 F, heart rate 76 bpm, blood pressure 108/56 mmHg, SpO2 reading 93% on room air. On today's evaluation of 12/26/2024, the patient continues to have cough and congestion. No significant shortness of breath. No chest pain. She has an acute COPD exacerbation with an acute RSV infection. No neurological symptoms for now. No aphasia. No focal neurological deficits. Meanwhile, an echocardiogram was done and the patient was found to have significant valvular heart disease. The patient was found to have a preserved LV function with an ejection fraction of 65%. She had moderate mitral regurgitation and severe aortic stenosis with critical and a mean gradient across the aortic valve of 80 and the valve was estimated to be 0.8 cm. Based on that, the patient is scheduled to undergo a MACO tomorrow. Continues to be on bronchodilators. Continues to be on IV Solu-Medrol 40 mg every 12 hours. Blood pressure is stable. Pulse ox is 94% on room air oxygen. On 12/27/2024, patient is being seen for a follow-up. Continues to have cough and congestion related to an acute RSV infection and a component of COPD exacerbation. She remains on room air oxygen. No chest pain. No pleurisy or hemoptysis. The patient completed a MACO and the patient was found to have a bicuspid aortic valve. The patient was found to have severe aortic stenosis as expected. The mean gradient across the aortic valve was 40 with a peak gradient of 67. Patient also had mild mitral stenosis and mild tricuspid and aortic regurgitation. LV function was preserved. No focal neurological deficits. No other complaints otherwise. Remains on bronchodilators. Remains on IV Solu- Medrol 40 mg every 12 hours. Objective - Vital Signs Vital signs: Vital Signs Temp 97.8 F 12/27/24 10:54 Pulse 74 12/27/24 10:54 Resp 16 12/27/24 10:54 BP 121/75 12/27/24 10:54 Pulse Ox 95 12/27/24 10:54 FiO2 Intake & Output 12/26/24 12/27/24 12/27/24 18:59 06:59 18:59 Intake Total 540 Balance 540 Weight 74.5 kg Intake: Oral 540 Other: Voiding Method Toilet Toilet # Voids 3 1 - Exam GENERAL EXAM: Alert, 79-year-old female, comfortable in no apparent distress. HEAD: Normocephalic and atraumatic EYES: Normal reaction of pupils, equal size. NOSE: Clear with pink turbinates. THROAT: No erythema or exudates. NECK: No masses, no JVD. CHEST: No chest wall deformity. LUNGS: Equal air entry with expiratory wheezing heard bilaterally throughout. On room air. No conversational dyspnea or accessory muscle use.. Congested cough. CVS: S1 and S2 normal with a systolic ejection murmur over the apex,, regular rhythm. No extra heart sounds ABDOMEN: No hepatosplenomegaly, active bowel sounds, no guarding or rigidity. SPINE: No scoliosis or deformity SKIN: No rashes CENTRAL NERVOUS SYSTEM: Alert, cranial nerves II through XII intact, no focal deficits, tone is normal in all 4 extremities. EXTREMITIES: There is no peripheral edema, clubbing, or cyanosis. Peripheral pulses are intact. - Labs CBC & Chem 7: 12/24/24 21:19 12/24/24 21:19 Assessment and Plan Assessment: Acute exacerbation of COPD secondary to RSV tracheobronchitis, remains sympt omatic TIA, clinically suspected, recovered. Neurowork-up has been negative Valvular heart disease with critical aortic stenosis with a valve area of 0.8 cm and moderate MR. Preserved LV function. MACO was completed and the patient was found to have bicuspid aortic valve with severe aortic stenosis, preserved LV function Acute dyspnea, secondary to above. Hypertension History of hyperlipidemia Tobacco smoker, reportedly 1 pack of cigarettes will last her 1 month Plan: Patient currently on room air oxygen Continue supportive care for RSV bronchitis Continue bronchodilators Continue IV steroids, increase dose to 60 mg every 6 hours Robitussin DM as needed for antitussive Continue aspirin and high intensity statin MACO was reviewed Cardiology on the case Carotid Dopplers are negative We will continue to follow Time with Patient: Greater than 30
[2024-12-27] MEDS: methylPREDNISolone SOD SUCCI 125 MG/2 ML VIAL IV SCH (17:06)
[2024-12-28 07:44] LABS: African American GFR (CKD) 70 (>60 ml/min/1.73 sqM); Anion Gap 7 mmol/L; Blood Urea Nitrogen 38 mg/dL (7-17); Calcium 8.6 mg/dL (8.4-10.2); Carbon Dioxide 24 mmol/L (22-30); Chloride 104 mmol/L (98-107); Glucose 159 mg/dL (74-99); Non-African American GFR(CKD) 61 (>60 ml/min/1.73 sqM); Potassium 4.9 mmol/L (3.5-5.1); Sodium 135 mmol/L (137-145)
[2024-12-28] MEDS: PANTOPRAZOLE 40 MG TABLET PO SCH (08:30)
[2024-12-28 09:52] VITALS: TEMP 97.8
[2024-12-28 12:16] VITALS: BP 130/77; PULSE 94; RESP 17
--- NOTE | 2024-12-28 12:47 | P.PN ---
Subjective Progress Note Date: 12/27/24 Patient was seen for a follow-up. Patient is sitting on the recliner. No new focal symptoms. Objective - Vital Signs Vital signs: Vital Signs Temp 97.8 F 12/27/24 10:54 Pulse 80 12/27/24 12:34 Resp 16 12/27/24 10:54 BP 121/75 12/27/24 10:54 Pulse Ox 95 12/27/24 10:54 FiO2 Intake & Output 12/26/24 12/27/24 12/27/24 18:59 06:59 18:59 Intake Total 540 Balance 540 Weight 74.5 kg Intake: Oral 540 Other: Voiding Method Toilet Toilet # Voids 3 1 - Exam Completely nonfocal. - Labs CBC & Chem 7: 12/24/24 21:19 12/28/24 06:55 Assessment and Plan Assessment: * TIA, manifesting with expressive aphasia, that resolved within 2 to 3 hours. Likely cardioembolic due to the reasons mentioned below. * Aortic stenosis, severe * Mitral stenosis, moderate, * Mitral regurgitation, moderate * Acute RSV infection * Hypertension * Hyperlipidemia * History of nosebleed * Ex tobacco use Plan: * Patient had a TIA. All symptoms have resolved. Current NIH stroke scale is 0. Patient's ABCD2 score was 4, which is a moderate risk. * 2D echo revealed hyperdynamic LV, mild LVH and EF is 60 to 65%. Severe aortic sclerosis and critical aortic stenosis with mean gradient exceeding 80 mmHg and aortic valve area of 0.8 cm. Extremely thickened mitral valve apparatus with moderate mitral stenosis. An echodensity was identified on the posterior mitral leaflet likely represent extensive calcification. Mild pulmonary hypertension. * Transesophageal echocardiogram, performed today, which revealed: 1. Mildly dilated left atrium with normal appearance of the left atrial appendage 2. Normal ventricular size and systolic function 3. Severe aortic stenosis with probable bicuspid aortic valve 4. Mild mitral stenosis with calcified leaflets 5. Mild mitral, tricuspid and aortic regurgitation * CTA head and neck showed: No evidence of dissection of the cervical internal carotid arteries or vertebral arteries. No evidence of significant stenosis at the carotid bifurcations. No evidence of intracranial high-grade stenosis or intracranial aneurysm. * Carotid Doppler showed no suspicious significant flow-limiting stenosis bilateral carotid bifurcations. Antegrade flow in both vertebral arteries. * Fasting a.m. lipid panel cholesterol 161, LDL 95, HDL 39, triglycerides 130. Patient was not taking any statins. We will start Lipitor 20 mg daily to target LDL <70. * Hemoglobin A1c 6.2 * Patient's blood pressure is well-controlled. Continue lisinopril 10 mg daily. * Patient used to take aspirin 81 mg daily. Few months ago, she had a nosebleed, therefore she has been taking aspirin very irregularly. I recommended patient to undergo dual antiplatelet therapy for 21 days and then stop Plavix and continue aspirin 81 mg indefinitely. Patient declined Plavix, because her mother had severe bleeding from it. We discussed about increasing dose of aspirin to 325 mg at least for 4 weeks, but she was concerned about nosebleed. After discussion, we agreed to increase aspirin to 162 mg daily at least for 4 weeks. Then may decrease to 81 mg daily and continue regularly. However antiplatelet therapy to be decided by cardiology because of severe aortic stenosis. * Neuro checks every 4 hours * Telemetry monitoring rule out any arrhythmia * DVT prophylaxis: Patient low risk. Patient is ambulatory. * Cardiology recommending evaluation as outpatient for aortic valve replacement probably by TAVR. * Neurologically clear for discharge when cleared by cardiology.
--- NOTE | 2024-12-28 12:52 | P.PN ---
Subjective HISTORY OF PRESENT ILLNESS: This is a 79-year-old female with a past medical history significant for hypertension, COPD, and former nicotine dependence. Patient does not follow with a head of human resources. We have been asked to see the patient in consultation for mitral valve stenosis. Patient examined at the bedside. Patient states over the past few days she has been coughing a lot. She states that she was at home when she went to call a friend and she was unable to get the correct words out. She presented to the hospital for further evaluation. Patient's altered speech has since resolved. Patient currently denies any chest pain or pressure. She denies any shortness of breath. She does report some mild chest discomfort after she has a significant coughing fit. She does report she has been having shortness of breath with exertion at baseline for the past couple months. She stopped smoking approximately 1 month ago. She does not see a lung doctor. She denies any history of seizure or stroke. The patient was also found to be po sitive for RSV. The patient does report a history of a heart murmur since age of 18. She states that she has never had an echocardiogram previously performed. DIAGNOSTICS: - EKG reveals sinus tachycardia with no signs of acute ischemia. - Chest xray negative for acute process. COPD changes.. -Carotid Doppler: No suspicious significant flow-limiting stenosis of bilateral carotid bifurcations - Laboratory data: WBC 4.7. Hemoglobin 11.9. Platelet count 160. Sodium 137. Potassium 4.2. BUN 36. Creatinine 1.01. LDL 95. - Current home cardiac medications include amlodipine-benazepril 5-10 mg daily and aspirin 81 mg daily. -Echocardiogram performed this admission reveals ejection fraction 65%, hyperdynamic left ventricular systolic function. Mid cavitary gradient 42 mmHg at rest. Possible apical pouch. Mild pulmonary hypertension. Possible mobile thrombus on posterior leaflet. Moderate mitral stenosis. Moderate mitral regurgitation, may be underestimated due to severe aortic stenosis, hyperdynamic left ventricular cavity, and poor Doppler alignment. Severe aortic stenosis w ith mean gradient 80 mmHg. Mild tricuspid regurgitation. - Cardiac catheterization history: Patient denies 12/28/2024 Patient is status post MACO revealing mildly dilated left atrium with normal appearance of the left atrial appendage, normal ventricular size and systolic function, severe aortic stenosis with probable bicuspid aortic valve, mild mitral stenosis with calcified leaflets, mild mitral, tricuspid, and aortic regurgitation. Patient examined this morning at the bedside. Patient states she is feeling well this morning. She denies any chest pain or pressure. Denies any shortness of breath. She reports improvement in her cough. PHYSICAL EXAM: VITAL SIGNS: Reviewed. GENERAL: Well-developed in no acute distress. HEENT: Head is normocephalic. Pupils are equal, round. Sclerae anicteric. Mucous membranes of the mouth are moist. Neck supple. No JVD or thyromegaly LUNGS: Respirations even and unlabored. Lungs essentially clear to auscultation bilaterally. HEART: Regular rate and rhythm. 3/6 systolic murmur, late peaking, no s2 at the apex ABDOMEN: Soft. Nondistended. Nontender. EXTREMITIES: Normal range of motion. No clubbing or cyanosis. Peripheral pulses intact. No lower extremity edema NEUROLOGIC: Awake and alert. Oriented x 3. ASSESSMENT: Acute RSV Expressive aphasia, suspected TIA Severe aortic stenosis Hypertension History of COPD Former nicotine dependence, patient quit smoking 1 month ago PLAN: Continue current cardiac medications Patient is currently stable from a cardiac standpoint Patient to follow up post discharge with Dr. Montoya. Patient will require eventual aortic valve replacement and will undergo further workup on an outpatient basis. Nurse practitioner note has been reviewed by physician. Signing provider agrees with the documented findings, assessment, and plan of care documented by [employer] as a scribe. Objective - Vital Signs Vital signs: Vital Signs Temp 97.8 F 12/28/24 08:00 Pulse 94 12/28/24 12:00 Resp 17 12/28/24 12:00 BP 130/77 12/28/24 12:00 Pulse Ox 94 L 12/28/24 12:00 FiO2 21 12/28/24 08:18 Intake & Output 12/27/24 12/28/24 12/28/24 18:59 06:59 18:59 Intake Total 0 540 540 Balance 0 540 540 Weight 74.5 kg Intake: Intake, IV Titration 0 Amount Sodium Chloride 0.9% 500 0 ml 500 ml @ 0 mls/hr IV . [facility] Rx#: [id number] Oral 540 540 Other: Voiding Method Toilet Toilet Toilet # Voids 3 1 1 - Labs CBC & Chem 7: 12/24/24 21:19 12/28/24 06:55 Labs: Abnormal Lab Results - Last 24 Hours (Table) 12/28/24 Range/Units 06:55 Sodium 135 L (137-145) mmol/L BUN 38 H (7-17) mg/dL Glucose 159 H (74-99) mg/dL
--- NOTE | 2024-12-28 14:05 | P.PN ---
Subjective Progress Note Date: 12/28/24 Patient is 79-year-old female with past medical history significant hypertensio n, hyperlipidemia, COPD, and tobacco smoker. Patient presented to the emergency department, at 8:30 PM, with a chief complaint of trouble speaking. Patient was on the phone with her friend sometime around 3 or 5 PM yesterday evening. States that she could not find words. EMS was called. Code stroke was activated. No other neurological deficits were noted. Workup in the emergency department including a brain CT which did not show any acute intracranial hemorrhage or mass effect. Brain CTA did not show any evidence of dissection of the cervical internal carotid arteries or vertebral arteries. No significant evidence of stenosis of the carotid bifurcations. No evidence of intracranial high-grade stenosis or intracranial aneurysm. While patient was undergoing preliminary imaging, her symptoms spontaneously resolved. Patient did not receive any thrombolytics. A secondary concern is some URI-like symptoms that developed last week. She was having rhinorrhea, congested cough, wheezing, and shortness of breath. Did go to her primary care provider, Dr. Rojas, who prescribed her antibiotics yesterday. Viral screen at our facility was positive for RSV. Chest x-ray done on arrival did not show any focal infiltrates or evidence of pneumonia. CBC unremarkable for leukocytosis, hemoglobin 11.9, platelets 168. CMP also unremarkable, electrolytes WDL, serum bicarb 25, creatinine 1.01, glucose 143. LFTs not elevated. Urinalysis unremarkable for infection. Patient currently being evaluated in the emergency department. Neurological exam is nonfocal. No dysarthria or dysphagia. She is on room air oxygen. No respiratory distress noted. Does have a congested nonproductive cough with expiratory wheezing heard bilaterally and throughout. She does report history of "mild COPD". Does smoke cigarettes, states 1 pack usually lasts her a month. Is reporting several days of increased shortness of breath, wheezing, rhinorrhea, congested cough. Subjective fevers. Eating and drinking okay. No nausea, vomiting, diarrhea. Current most recent vital signs: Temperature 98 F, heart rate 76 bpm, blood pressure 108/56 mmHg, SpO2 reading 93% on room air. On today's evaluation of 12/26/2024, the patient continues to have cough and congestion. No significant shortness of breath. No chest pain. She has an acute COPD exacerbation with an acute RSV infection. No neurological symptoms for now. No aphasia. No focal neurological deficits. Meanwhile, an echocardiogram was done and the patient was found to have significant valvular heart disease. The patient was found to have a preserved LV function with an ejection fraction of 65%. She had moderate mitral regurgitation and severe aortic stenosis with critical and a mean gradient across the aortic valve of 80 and the valve was estimated to be 0.8 cm. Based on that, the patient is scheduled to undergo a MACO tomorrow. Continues to be on bronchodilators. Continues to be on IV Solu-Medrol 40 mg every 12 hours. Blood pressure is stable. Pulse ox is 94% on room air oxygen. On 12/27/2024, patient is being seen for a follow-up. Continues to have cough and congestion related to an acute RSV infection and a component of COPD exacerbation. She remains on room air oxygen. No chest pain. No pleurisy or hemoptysis. The patient completed a MACO and the patient was found to have a bicuspid aortic valve. The patient was found to have severe aortic stenosis as expected. The mean gradient across the aortic valve was 40 with a peak gradient of 67. Patient also had mild mitral stenosis and mild tricuspid and aortic regurgitation. LV function was preserved. No focal neurological deficits. No other complaints otherwise. Remains on bronchodilators. Remains on IV Solu- Medrol 40 mg every 12 hours. On 12/28/2024, the patient is feeling much improved. Cough and congestion has subsided. No new complaints. Significant chest pain. No hemoptysis. No pleurisy. Remains on IV Solu-Medrol for an acute RSV tracheobronchitis and COPD exacerbation. She was also found to have severe aortic stenosis and needs to be further treated on outpatient basis. The patient is ambulating. No chest pain. No hemoptysis. No pleurisy. Objective - Vital Signs Vital signs: Vital Signs Temp 97.8 F 12/28/24 08:00 Pulse 100 12/28/24 08:28 Resp 18 12/28/24 08:00 BP 121/75 12/28/24 08:00 Pulse Ox 95 12/28/24 08:18 FiO2 21 12/28/24 08:18 Intake & Output 12/27/24 12/28/24 12/28/24 18:59 06:59 18:59 Intake Total 0 540 540 Balance 0 540 540 Weight 74.5 kg Intake: Intake, IV Titration 0 Amount Sodium Chloride 0.9% 500 0 ml 500 ml @ 0 mls/hr IV . [facility] Rx#: [id number] Oral 540 540 Other: Voiding Method Toilet Toilet Toilet # Voids 3 1 1 - Exam GENERAL EXAM: Alert, 79-year-old female, comfortable in no apparent distress. HEAD: Normocephalic and atraumatic EYES: Normal reaction of pupils, equal size. NOSE: Clear with pink turbinates. THROAT: No erythema or exudates. NECK: No masses, no JVD. CHEST: No chest wall deformity. LUNGS: Equal air entry with expiratory wheezing heard bilaterally throughout. On room air. No conversational dyspnea or accessory muscle use.. Congested co ugh. CVS: S1 and S2 normal with a systolic ejection murmur over the apex,, regular rhythm. No extra heart sounds ABDOMEN: No hepatosplenomegaly, active bowel sounds, no guarding or rigidity. SPINE: No scoliosis or deformity SKIN: No rashes CENTRAL NERVOUS SYSTEM: Alert, cranial nerves II through XII intact, no focal deficits, tone is normal in all 4 extremities. EXTREMITIES: There is no peripheral edema, clubbing, or cyanosis. Peripheral pulses are intact. - Labs CBC & Chem 7: 12/24/24 21:19 12/28/24 06:55 Labs: Abnormal Lab Results - Last 24 Hours (Table) 12/28/24 Range/Units 06:55 Sodium 135 L (137-145) mmol/L BUN 38 H (7-17) mg/dL Glucose 159 H (74-99) mg/dL Assessment and Plan Assessment: Acute exacerbation of COPD secondary to RSV tracheobronchitis, improving TIA, clinically suspected, recovered. Neurowork-up has been negative Valvular heart disease with critical aortic stenosis with a valve area of 0.8 cm and moderate MR. Preserved LV function. MACO was completed and the patient was found to have bicuspid aortic valve with severe aortic stenosis, preserved LV function Acute dyspnea, secondary to above. Hypertension History of hyperlipidemia Tobacco smoker, reportedly 1 pack of cigarettes will last her 1 month Plan: Patient currently on room air oxygen Continue supportive care for RSV bronchitis Continue bronchodilators The patient can be discharged on a prednisone burst taper. This will be co mmunicated with the medical team. Robitussin DM as needed for antitussive Continue aspirin and high intensity statin MACO was reviewed Cardiology on the case Carotid Dopplers are negative We will continue to follow
--- NOTE | 2024-12-31 20:08 | P.DS ---
Providers Date of admission: 12/26/24 11:59 Attending physician: Adan Rojas Consults: 12/24/24 22:24 Consult Physician Routine Consulting Provider: Reid Nam Consult Reason/Comments: copd Do you want consulting provider notified?: Yes 12/24/24 22:25 Consult Physician Routine Consulting Provider: Michelle Randhawa Consult Reason/Comments: tia Do you want consulting provider notified?: Yes 12/26/24 08:27 Consult Physician Routine Consulting Provider: Pérez Estrada Consult Reason/Comments: mitral valve stenosis Do you want consulting provider notified?: Yes Primary care physician: Adan Rojas Hospital Course: Final Diagnosis Acute RSV tracheobronchitis Acute COPD exacerbation secondary to above TIA, recovered Critical aortic stenosis Hypertension Hx hyperlipidemia Chronic and ongoing nicotine use Discharge Disposition Patient is stable for discharge home. Cleared by all consultations. Patient to continue on aspirin and high intensity statin. Patient will discharge on prednisone taper for the Acute RSV infection. Recommend close follow up with Dr. Montoya for further work for the aortic stenosis. Follow up with pulmonology. Follow up with Dr Rojas in 1 to 2 days. Hospital Course This is a pleasant 79 year old female who follows with Dr Rojas. Patient has medical history of COPD, hypertension, hyperlipidemia, former smoker. The patient came to the hospital after having TIA type symptoms. Significant slurred speech which has resolved after observation in the ER. The patient was treated in the primary care office several days ago for lower respiratory congestion and has completed a course of azithromycin. Chest x-ray is nominal at this time. She is now speaking at baseline and seems cognitively appropriate. Patient reports continued cough, non productive reports difficulty expectorating. Has not been having any fever or chills. She is not having any shortness of breath. On admission her viral swab is positive for RSV. Patient admitted to the hospital with consult to neurology and pulmonology. Echocardiogram/TIA workup does show significant aortic valve issues. Cardiology was consulted and she most likely will need valve replacement which will be explored on an outpatient basis. Patient was treated with IV solumedrol and supportive care. She is on room air. Cleared by all consults for discharge home. Please see medication reconciliation for a list of current medications. Thank you for allowing us to participate in the care of this patient. The impression and plan of care has been dictated by Micaela Cole, Nurse Practitioner as directed. Dr. Pamela MD I have performed a history and physical examination and medical decision making of this patient, discussed the same with the dictator, and agree with the dictators assessment and plan as written, documented as a scribe. Based on total visit time, I have performed more than 50% of this visit. Mammogram is negative left ankle subcutaneous milligram Patient Condition at Discharge: Stable Plan - Discharge Summary Discharge Rx Participant: No New Discharge Prescriptions: New Atorvastatin [Lipitor] 40 mg PO HS #30 tab methylPREDNISolone Dose Pack [Medrol Dose Pack] 4 mg PO DIRECTED #21 tab Continue amLODIPine BESYLATE/BENAZEPRIL [Lotrel 5-10 MG] 1 cap PO DAILY Aspirin 81 mg PO DAILY Discontinued Azithromycin [Zithromax Z Pack] See Taper PO DIRECTED Discharge Medication List Aspirin 81 mg PO DAILY 09/27/19 [History] amLODIPine BESYLATE/BENAZEPRIL [Lotrel 5-10 MG] 1 cap PO DAILY 09/27/19 [History] Atorvastatin [Lipitor] 40 mg PO HS #30 tab 12/28/24 [Rx] methylPREDNISolone Dose Pack [Medrol Dose Pack] 4 mg PO DIRECTED #21 tab 12/28/24 [Rx] Follow up Appointment(s)/Referral(s): Olvin Montoya MD [STAFF PHYSICIAN] - 1 Week (Features Editor, please call the office Monday to make an appointment) Adan Rojas MD [Primary Care Provider] - 1 Week (CALL AND MAKE SELVIN MONDAY) Reid Nam MD [STAFF PHYSICIAN] - 1 Week (CALL AND MAKE SELVIN MONDAY) Patient Instructions/Handouts: Transient Ischemic Attack (DC), Aortic Stenosis (DC), Respiratory Syncytial Virus (DC) Activity/Diet/Wound Care/Special Instructions: Complete oral prednisone taper Discharge Disposition: HOME SELF-CARE
== END 2024-12-28 13:59 | disposition home or self-care (01) | DRG 202 ==
LOC: EC 20:31 → 3SCARD 22:23 → OBSVTOIN 12-26 11:59
PROVIDERS: ADMIT Family Medicine; ATTEND Family Medicine
DX: J20.5 Acute bronchitis due to respiratory syncytial virus (principal); G45.9 Transient cerebral ischemic attack, unspecified; J44.0 Chronic obstructive pulmonary disease with (acute) lower respiratory infection; Q23.81 Bicuspid aortic valve; I10 Essential (primary) hypertension; J44.1 Chronic obstructive pulmonary disease with (acute) exacerbation; R47.01 Aphasia; E78.5 Hyperlipidemia, unspecified; F17.210 Nicotine dependence, cigarettes, uncomplicated; R29.701 NIHSS score 1; R47.02 Dysphasia; Z79.82 Long term (current) use of aspirin; Z85.038 Personal history of other malignant neoplasm of large intestine; Z90.710 Acquired absence of both cervix and uterus; Z79.899 Other long term (current) drug therapy
CPT/HCPCS: 36415; 70450; 70496; 70498; 71046; 80048; 80053; 80061; 81001; 82550; 83036; 85025; 85610; 85730; 87636; 93005; 93270; 93306; 93312; 93320; 93325; 93880; 94640; 94760; 96361; 96374; 96376; 99291

== ENCOUNTER 2025-01-18 11:02 | Emergency (ER) | payer MEDICARE, BC ==
--- NOTE | 2025-01-18 11:41 | ED ---
General Adult HPI - General Chief complaint: Chest Pain Stated complaint: chest pain Time Seen by Provider: 01/18/25 11:05 Source: patient, EMS Mode of arrival: EMS Limitations: no limitations - History of Present Illness Initial comments: Dictation was produced using [employer] dictation software. please excuse any grammatical, word or spelling errors. Chief Complaint: 79-year-old female with weakness and chest pain History of Present Illness: Patient 71-year-old female presents emergency department with weakness and chest pain. Patient is been sick with RSV for couple weeks now. For the last couple days she has been having exertional chest pain that radiates to the left shoulder. Scheduled to have cardiac catheterization soon. States that this morning she woke up feeling weak. States that she is been feeling weak for about a week now. Denies any fever, chills or night sweats. Patient otherwise feels like her symptoms are improved with rest. The ROS documented in this emergency department record has been reviewed and confirmed by me. Those systems with pertinent positive or negative responses have been documented in the HPI. All other systems are other negative and/or noncontributory. - Related Data Home Medications Medication Instructions Recorded Confirmed Aspirin 81 mg PO DAILY 09/27/19 01/16/25 amLODIPine BESYLATE/BENAZEPRIL 1 cap PO DAILY 09/27/19 01/16/25 [Lotrel 5-10 MG] Albuterol Inhaler [Ventolin Hfa 1 - 2 puff INHALATION Q6H PRN 01/16/25 01/16/25 Inhaler] Previous Rx's Medication Instructions Recorded Atorvastatin [Lipitor] 40 mg PO HS #30 tab 12/28/24 Allergies Allergy/AdvReac Type Severity Reaction Status Date / Time No Known Allergies Allergy Verified 01/18/25 11:06 Review of Systems ROS Statement: Those systems with pertinent positive or pertinent negative responses have been documented in the HPI. ROS Other: All systems not noted in ROS Statement are negative. Past Medical History Past Medical History: Cancer, Chest Pain / Angina, COPD, Hyperlipidemia, Hypertension, Pneumonia, Skin Disorder Additional Past Medical History / Comment(s): Colon CA dx 2018-no chemo or radiation, hx. heart murmur. psoriasis. intermittent chest pains, SOB with activity. History of Any Multi-Drug Resistant Organisms: None Reported Past Surgical History: Bowel Resection, Hysterectomy, Orthopedic Surgery Additional Past Surgical History / Comment(s): pina foot surg. pina cataract surg with lens implant. Past Anesthesia/Blood Transfusion Reactions: No Reported Reaction Additional Past Anesthesia/Blood Transfusion Reaction / Comment(s): stated "had alot of coughing up mucus after last colonoscopy and had alot pain with anesthesia medication when injected into arm states did not have an IV with last colonoscopy." Past Psychological History: No Psychological Hx Reported Smoking Status: Former smoker - Past Family History Brother(s) Family Medical History: Cancer Mother Family Medical History: Deep Vein Thrombosis (DVT) General Exam - General Exam Comments Initial Comments: PHYSICAL EXAM: General Impression: Alert and oriented x3, not in acute distress HEENT: Normocephalic atraumatic, extra-ocular movements intact, pupils equal and reactive to light bilaterally, mucous membranes moist. Cardiovascular: Heart regular rate and rhythm Chest: Able to complete full sentences, no retractions, no tachypnea Abdomen: abdomen soft, non-tender, non-distended, no organomegaly Musculoskeletal: Pulses present and equal in all extremities, no peripheral edema Motor: no focal deficits noted Neurological: CN II-XII grossly intact, no focal motor or sensory deficits noted Skin: Intact with no visualized rashes Psych: Normal affect and mood Limitations: no limitations Course Vital Signs 01/18/25 01/18/25 11:03 12:35 Temperature 98.1 F 98.1 F Pulse Rate 111 H 104 H Respiratory 18 18 Rate Blood Pressure 105/56 99/54 O2 Sat by Pulse 100 98 Oximetry EKG Findings - EKG Comments: EKG Findings:: My EKG interpretation: Ventricular rate 108, sinus tachycardia,. 133, QRS 71, QTc 4 3. Overall, this EKG is unremarkable Medical Decision Making - Medical Decision Making Was pt. sent in by a medical professional or institution (, PA, TUNNEL WORKER, urgent care, hospital, or residential...) When possible be specific @ -No Did you speak to anyone other than the patient for history (EMS, parent, family, police, friend...)? What history was obtained from this source @ -No Did you review nursing and triage notes (agree or disagree)? Why? @ -I reviewed and agree with nursing and triage notes Were old charts reviewed (outside hosp., previous admission, EMS record, old EKG, old radiological studies, urgent care reports/EKG's, residential records)? Report findings @ -No old charts were reviewed Differential Diagnosis (chest pain, altered mental status, abdominal pain women, abdominal pain men, vaginal bleeding, musculoskeletal, weakness, fever, dyspnea, syncope, headache, dizziness, GI bleed, back pain, seizure, CVA, palpatations, mental health)? @ -Differential Weakness: Hypoglycemia, shock, sepsis, hyponatremia, anemia, infection, NV, ETOH, adverse medicine reaction, overdose, stroke, this is not meant to be an all-inclusive list. EKG interpreted by me (3pts min.). @ -See above X-rays interpreted by me (1pt min.). @ -Chest x-ray is nonacute CT interpreted by me (1pt min.). @ -None done U/S interpreted by me (1pt. min.). @ -None done What testing was considered but not performed or refused? (CT, X-rays, U/S, labs)? Why? @ -None What meds were considered but not given or refused? Why? @ -None Was smoking cessation discussed for >3mins.? @ -No Were there social determinants of health that impacted care today? How? (Homelessness, low income, unemployed, alcoholism, drug addiction, transportation, low edu. Level, literacy, decrease access to med. care, fpc, rehab)? @ -No Was there de-escalation of care discussed even if they declined (Discuss DNR or withdrawal of care, Hospice)? DNR status @ -No What co-morbidities impacted this encounter? (DM, HTN, Smoking, COPD, CAD, Cancer, CVA, ARF, Chemo, Hep., AIDS, mental health diagnosis, sleep apnea, morbid obesity)? @ -Coronary artery disease Was patient admitted / discharged? Hospital course, mention meds given and route, prescriptions, significant lab abnormalities, going to OR and other pertinent info. @ -71-year-old female presents emergency department with generalized weakness. She has been having black tarry stools. Vital signs show slight tachycardia 111. Blood pressure is soft however patient well-appearing at the bedside no acute distress. Laboratory evaluation obtained. Hemoglobin 4.6. Troponin elevated 0.063. Stool occult blood positive. Patient given Protonix. Patient requested transfer to [facility]. Case discussed with Dr. Hall of GI who accepted transfer. Case discussed with ER physician Dr. Chacon who are both agreeable. Did you discuss the management of the patient with other professionals (professionals i.e. , PA, TUNNEL WORKER, lab, RT, psych nurse, social media marketing specialist, education officer, teacher, correctional officer sergeant, trimming caser)? Give summary @ -See above Was critical care preformed (if so, how long)? @ -Yes, 33 minutes Undiagnosed new problem with uncertain prognosis? @ -No Drug Therapy requiring intensive monitoring for toxicity (Heparin, Nitro, Insulin, Cardizem)? @ -No Were any procedures done? @ -No Diagnosis/symptom? Acute, or Chronic, or Acute on Chronic? Uncomplicated (wi thout systemic symptoms) or Complicated (systemic symptoms)? @ -Anemia secondary to GI bleed, elevated troponin Side effects of treatment? @ -No Exacerbation, Progression, or Severe Exacerbation? @ -No Poses a threat to life or bodily function? How? (Chest pain, USA, NV, pneumonia, PE, COPD, DKA, ARF, appy, cholecystitis, CVA, Diverticulitis, Homicidal, Suicidal, threat to staff... and all critical care pts) @ -yes - Lab Data Result diagrams: 01/18/25 12:32 01/18/25 12:03 Lab Results 01/18/25 01/18/25 01/18/25 Range/Units 12:03 12:03 12:03 WBC 5.3 (3.8-10.6) k/uL RBC 1.48 L (3.80-5.40) m/uL Hgb 4.6 L* D (11.4-16.0) gm/dL Hct 14.2 L* (34.0-46.0) % MCV 95.8 (80.0-100.0) fL MCH 30.9 (25.0-35.0) pg MCHC 32.2 (31.0-37.0) g/dL RDW 15.8 H (11.5-15.5) % Plt Count 193 (150-450) k/uL MPV 9.2 Neutrophils % 74 % Lymphocytes % 19 % Monocytes % 4 % Eosinophils % 1 % Basophils % 0 % Neutrophils # 3.9 (1.3-7.7) k/uL Lymphocytes # 1.0 (1.0-4.8) k/uL Monocytes # 0.2 (0-1.0) k/uL Eosinophils # 0.0 (0-0.7) k/uL Basophils # 0.0 (0-0.2) k/uL Hypochromasia Slight Poikilocytosis Anisocytosis PT 10.9 (10.0-12.5) sec INR 1.0 (<1.2) APTT 19.6 L (22.0-30.0) sec Sodium 133 L (137-145) mmol/L Potassium 4.6 (3.5-5.1) mmol/L Chloride 102 (98-107) mmol/L Carbon Dioxide 24 (22-30) mmol/L Anion Gap 7 mmol/L BUN 40 H (7-17) mg/dL Creatinine 1.01 (0.52-1.04) mg/dL Est GFR (CKD-EPI)AfAm 62 (>60 ml/min/1.73 sqM) Est GFR (CKD-EPI)NonAf 54 (>60 ml/min/1.73 sqM) Glucose 130 H (74-99) mg/dL Calcium 8.1 L (8.4-10.2) mg/dL Magnesium 1.9 (1.6-2.3) mg/dL Total Bilirubin 0.3 (0.2-1.3) mg/dL AST 16 (14-36) U/L ALT 15 (4-34) U/L Alkaline Phosphatase 56 (38-126) U/L Troponin I (0.000-0.034) ng/mL Total Protein 4.9 L (6.3-8.2) g/dL Albumin 2.8 L (3.5-5.0) g/dL Stool Occult Blood (Negative) Blood Type Blood Type Recheck Bld Type Recheck Status Antibody Screen Spec Expiration Date 01/18/25 01/18/25 01/18/25 Range/Units 12:03 12:15 12:32 WBC 5.3 (3.8-10.6) k/uL RBC 1.51 L (3.80-5.40) m/uL Hgb 4.6 L* (11.4-16.0) gm/dL Hct 14.4 L* (34.0-46.0) % MCV 95.4 (80.0-100.0) fL MCH 30.6 (25.0-35.0) pg MCHC 32.1 (31.0-37.0) g/dL RDW 16.1 H (11.5-15.5) % Plt Count 200 (150-450) k/uL MPV 8.8 Neutrophils % 72 % Lymphocytes % 20 % Monocytes % 4 % Eosinophils % 1 % Basophils % 0 % Neutrophils # 3.8 (1.3-7.7) k/uL Lymphocytes # 1.1 (1.0-4.8) k/uL Monocytes # 0.2 (0-1.0) k/uL Eosinophils # 0.1 (0-0.7) k/uL Basophils # 0.0 (0-0.2) k/uL Hypochromasia Poikilocytosis Slight Anisocytosis Slight PT (10.0-12.5) sec INR (<1.2) APTT (22.0-30.0) sec Sodium (137-145) mmol/L Potassium (3.5-5.1) mmol/L Chloride (98-107) mmol/L Carbon Dioxide (22-30) mmol/L Anion Gap mmol/L BUN (7-17) mg/dL Creatinine (0.52-1.04) mg/dL Est GFR (CKD-EPI)AfAm (>60 ml/min/1.73 sqM) Est GFR (CKD-EPI)NonAf (>60 ml/min/1.73 sqM) Glucose (74-99) mg/dL Calcium (8.4-10.2) mg/dL Magnesium (1.6-2.3) mg/dL Total Bilirubin (0.2-1.3) mg/dL AST (14-36) U/L ALT (4-34) U/L Alkaline Phosphatase (38-126) U/L Troponin I 0.063 H* (0.000-0.034) ng/mL Total Protein (6.3-8.2) g/dL Albumin (3.5-5.0) g/dL Stool Occult Blood (Negative) Blood Type B Positive Blood Type Recheck B Pos Bld Type Recheck Status No Antibody Screen NEGATIVE Spec Expiration Date 01/21/2025 - 231401/18/25 Range/Units 12:53 WBC (3.8-10.6) k/uL RBC (3.80-5.40) m/uL Hgb (11.4-16.0) gm/dL Hct (34.0-46.0) % MCV (80.0-100.0) fL MCH (25.0-35.0) pg MCHC (31.0-37.0) g/dL RDW (11.5-15.5) % Plt Count (150-450) k/uL MPV Neutrophils % % Lymphocytes % % Monocytes % % Eosinophils % % Basophils % % Neutrophils # (1.3-7.7) k/uL Lymphocytes # (1.0-4.8) k/uL Monocytes # (0-1.0) k/uL Eosinophils # (0-0.7) k/uL Basophils # (0-0.2) k/uL Hypochromasia Poikilocytosis Anisocytosis PT (10.0-12.5) sec INR (<1.2) APTT (22.0-30.0) sec Sodium (137-145) mmol/L Potassium (3.5-5.1) mmol/L Chloride (98-107) mmol/L Carbon Dioxide (22-30) mmol/L Anion Gap mmol/L BUN (7-17) mg/dL Creatinine (0.52-1.04) mg/dL Est GFR (CKD-EPI)AfAm (>60 ml/min/1.73 sqM) Est GFR (CKD-EPI)NonAf (>60 ml/min/1.73 sqM) Glucose (74-99) mg/dL Calcium (8.4-10.2) mg/dL Magnesium (1.6-2.3) mg/dL Total Bilirubin (0.2-1.3) mg/dL AST (14-36) U/L ALT (4-34) U/L Alkaline Phosphatase (38-126) U/L Troponin I (0.000-0.034) ng/mL Total Protein (6.3-8.2) g/dL Albumin (3.5-5.0) g/dL Stool Occult Blood Positive H (Negative) Blood Type Blood Type Recheck Bld Type Recheck Status Antibody Screen Spec Expiration Date Disposition Clinical Impression: GI bleed Disposition: OTHER INSTITUTION NOT DEFINED Condition: Serious Referrals: Adan Rojas MD [Primary Care Provider] - 1-2 days Time of Disposition: 13:42 - Out of Hospital Transfer - Req. Specs Out of Hospital Transfer - Requested Specifics: Other Emergency Center ([facility]
[2025-01-18 12:14] LABS: MCH 30.9 pg (25.0-35.0); MCHC 32.2 g/dL (31.0-37.0); MCV 95.8 fL (80.0-100.0); Platelet Count 193 k/uL (150-450); RBC 1.48 m/uL (3.80-5.40); RDW 15.8 % (11.5-15.5); WBC 5.3 k/uL (3.8-10.6)
[2025-01-18 12:15] LABS: Basophils % (A) 0 %; Eosinophils % (A) 1 %; Hypochromasia Slight; Lymphocytes % (A) 19 %; Mean Platelet Volume 9.2; Monocytes # (A) 0.2 k/uL (0-1.0); Monocytes % (A) 4 %; Neutrophils # (A) 3.9 k/uL (1.3-7.7); Neutrophils % (A) 74 %
[2025-01-18 12:16] LABS: HGB 4.6 gm/dL (11.4-16.0)
[2025-01-18 12:17] LABS: HCT 14.2 % (34.0-46.0)
[2025-01-18 12:22] LABS: ALT 15 U/L (4-34); AST 16 U/L (14-36); African American GFR (CKD) 62 (>60 ml/min/1.73 sqM); Albumin 2.8 g/dL (3.5-5.0); Alkaline Phosphatase 56 U/L (38-126); Anion Gap 7 mmol/L; Blood Urea Nitrogen 40 mg/dL (7-17); Calcium 8.1 mg/dL (8.4-10.2); Carbon Dioxide 24 mmol/L (22-30); Chloride 102 mmol/L (98-107); Glucose 130 mg/dL (74-99); Magnesium 1.9 mg/dL (1.6-2.3); Non-African American GFR(CKD) 54 (>60 ml/min/1.73 sqM); Potassium 4.6 mmol/L (3.5-5.1); Sodium 133 mmol/L (137-145); Total Bilirubin 0.3 mg/dL (0.2-1.3); Total Protein 4.9 g/dL (6.3-8.2)
[2025-01-18 12:29] LABS: Prothrombin Time 10.9 sec (10.0-12.5)
--- NOTE | 2025-01-18 12:35 | XR ---
EXAMINATION TYPE: XR chest 2V DATE OF EXAM: 01/18/2025 12:30 PM COMPARISON: Chest radiographs from 12/24/2024 TECHNIQUE: XR chest 2V Frontal and lateral views of the chest. CLINICAL INDICATION:Female, 79 years old with history of Chest Pain; FINDINGS: Lungs/Pleura: There is flattening of the diaphragm with increased lucency of the lungs. No evidence o f pneumothorax, pleural effusion or focal consolidation. Pulmonary vascularity: Unremarkable. Heart/mediastinum: Cardiomediastinal silhouette is unremarkable. Atherosclerotic calcifications are seen in the aorta. Musculoskeletal: Multiple level degenerative disc disease changes seen throughout the spine. IMPRESSION: 1. No acute cardiopulmonary disease process. 2. COPD changes. [facility], , 01/18/2025 12:32 PM
[2025-01-18 12:36] LABS: Partial Thromboplastin Time 19.6 sec (22.0-30.0)
[2025-01-18 12:46] LABS: Anisocytosis Slight; Basophils % (A) 0 %; Eosinophils # (A) 0.1 k/uL (0-0.7); Eosinophils % (A) 1 %; Lymphocytes # (A) 1.1 k/uL (1.0-4.8); Lymphocytes % (A) 20 %; MCH 30.6 pg (25.0-35.0); MCHC 32.1 g/dL (31.0-37.0); MCV 95.4 fL (80.0-100.0); Mean Platelet Volume 8.8; Monocytes # (A) 0.2 k/uL (0-1.0); Monocytes % (A) 4 %; Neutrophils # (A) 3.8 k/uL (1.3-7.7); Neutrophils % (A) 72 %; Platelet Count 200 k/uL (150-450); Poikilocytosis Slight; RBC 1.51 m/uL (3.80-5.40); RDW 16.1 % (11.5-15.5); WBC 5.3 k/uL (3.8-10.6)
[2025-01-18 12:49] LABS: HCT 14.4 % (34.0-46.0); HGB 4.6 gm/dL (11.4-16.0)
[2025-01-18] MEDS: PANTOPRAZOLE 40 MG/10 ML VIAL IVP STA (13:58)
[2025-01-18] MEDS: ASPIRIN 81 MG PO STA (13:58)
[2025-01-18 15:12] VITALS: RESP 18
[2025-01-18 16:38] VITALS: BP 99/58; PULSE 78; TEMP 98.9
== END 2025-01-18 16:38 | disposition other institution (70) ==
LOC: EC 11:02
DX: K92.2 Gastrointestinal hemorrhage, unspecified (principal); I25.10 Atherosclerotic heart disease of native coronary artery without angina pectoris; R00.0 Tachycardia, unspecified; Z87.891 Personal history of nicotine dependence
CPT/HCPCS: 36415; 93005; 86900; 86901; 80053; 83735; 84484; 85025; 85610; 85730; 86850; 86920; 82272; 71046; 99291; 96374; 36430; P9016; J2470